=== PATIENT | male | born 1950 | race African-American/Black ===

== ENCOUNTER 2018-10-28 13:52 | Inpatient (IN) | payer MEDICARE, MEDICAID ==
[~2018-10-28] VITALS: Ht 165.1 cm; Wt 64.9 kg
--- NOTE | 2018-10-28 02:00 | NUR ---
NURSE NOTES: Spoke to Weston, patient's deck worker, regarding patient's home medication, social media editor provided me [facility]'s number [phone]. Attempted to contact pharmacy multiple times, however, no answer. Will retry at a later time.
--- NOTE | 2018-10-28 13:45 | NUR ---
NURSE NOTES: Patient ambulated from admitting to 3E without any incident. Patient is accompanied by personal manager social services. Patient is AOx4 and able to make needs known. Respiratory even and unlabored. Patient denies pain at this time. Spoke to Weston regarding patient's needs. Per manager social services, if in need of assistance in getting information, due to patient being poor historian, contact: Weston Augustin: [phone] and/or Manuelito Acosta: [phone] These personnels work for [facility].
[2018-10-28 14:00] VITALS: BP 120/80
--- NOTE | 2018-10-28 15:45 | NUR ---
NURSE NOTES: Contacted [facility] pharmacy regarding home medication, however, still no answer. Notified rn relief charge.
--- NOTE | 2018-10-28 15:50 | NUR ---
NURSE NOTES: Contacted [facility] regarding patient's chemotherapy status. Patient gets Keytruda [id number], per AJ Geronimo patient missed one session last week. Spoke with personnel in [facility] and clarified that the patient did miss session last week and also clarified home medications.
[2018-10-28 16:00] VITALS: BP 115/95
[2018-10-28] MEDS ORDERED: REMERON30 M1 ORAL (17:08)
[2018-10-28] MEDS ORDERED: WELLBUTRIN XL150 M1 ORAL (17:08)
[2018-10-28] MEDS ORDERED: KEYTRUDA100 MG/4 M IV (17:08)
[2018-10-28 18:23] LABS: BASOPHILS % (AUTO) 2.3 % (0.0-2.0); EOSINOPHILS % (AUTO) 6.6 % (0.0-3.0); HEMATOCRIT 37.7 % (42.0-52.0); HEMOGLOBIN 12.7 G/DL (14.2-18.0); LYMPHOCYTES % (AUTO) 24.9 % (20.0-45.0); MEAN CORPUSCULAR VOLUME 97 FL (80-99); MONOCYTES % (AUTO) 11.4 % (1.0-10.0); NEUTROPHILS % (AUTO) 54.8 % (45.0-75.0); PLATELET COUNT 164 K/UL (150-450); RED BLOOD COUNT 3.87 M/UL (4.70-6.10); RED CELL DISTRIBUTION WIDTH 10.5 % (11.6-14.8); WHITE BLOOD COUNT 4.6 K/UL (4.8-10.8)
[2018-10-28 18:30] LABS: ANION GAP 7 mmol/L (5-15); BLOOD UREA NITROGEN 15 mg/dL (7-18); CALCIUM 9.8 MG/DL (8.5-10.1); CARBON DIOXIDE 28 MMOL/L (21-32); CHLORIDE 104 MMOL/L (98-107); CREATININE 0.8 MG/DL (0.55-1.30); POTASSIUM 5.2 MMOL/L (3.5-5.1); SODIUM 139 MMOL/L (136-145)
[2018-10-28 18:33] LABS: INR 0.9 (0.9-1.1)
--- NOTE | 2018-10-28 19:00 | NUR ---
NURSE NOTES: painting and coating worker provided the following numbers: Yaya Araiza (brother) : [phone] Weston Augustin (rock worker [facility]) : [phone] (for any information regarding patient, due to patient being poor historian.) Manuelito Acosta (correctional case records supervisor of [facility]): [phone] [facility]: [phone] / [phone] Primary pharmacy: [facility]: [phone] Endorsed to upcoming shift.
--- NOTE | 2018-10-28 19:34 | NUR ---
HAND-OFF: Report given to Collette BARRERA. Patient is in stable condition. Endorsed plan of care.
--- NOTE | 2018-10-28 19:35 | NUR ---
NURSE NOTES: Received report & pt from HOLLY Arias. Pt lying in bed, a&ox4, in room air. No s/s of acute distress & no c/o pain at this time. Pt NPO @ midnight for tomorrow's procedure & pt aware. IV site intact with IVF running as ordered. Bed in lowest position, call light within reach. Will continue to monitor.
[2018-10-28 20:00] VITALS: BP 115/70
[2018-10-28] MEDS: D5NS 1,000 ML IV SCH (22:01)
[2018-10-28] MEDS ORDERED: Fleet's Enema 133ml RECTAL SCH (23:00)
[2018-10-29] VITALS (11 sets, daily range): BP systolic 90–149; BP diastolic 53–87
[2018-10-29] MEDS ORDERED: LR 1000ml 1,000 ML IVLG SCH (06:51)
--- NOTE | 2018-10-29 06:56 | Anethesia Preoperative Eval ---
Anesthesia Pre-op PMH/ROS General Date of Evaluation: Oct 29, 2018 Time of Evaluation: 07:41 Anesthesiologist: Sky ASA Score: ASA 3 Mallampati Score Class I : Soft palate, uvula, fauces, pillars visible Class II: Soft palate, uvula, fauces visible Class III: Soft palate, base of uvula visible Class IV: Only hard plate visible Mallampati Classification: Class II Surgeon: Gisella Diagnosis: Prostate CA Surgical Procedure: Open Prostatectomy Anesthesia History: none Family History: no anesthesia problems Allergies: Coded Allergies: No Known Allergies (Unverified , 10/28/18) Medications: see eMAR Patient NPO?: Yes NPO Date: Oct 29, 2018 NPO Time: 0000 Past Medical History Cardiovascular: Reports: HTN Gastrointestinal/Genitourinary: Reports: other - BPH Neurologic/Psychiatric: Reports: depression/anxiety - Major Depressive Disorder Hematology/Immune: Reports: anemia, other - Colon, Lung, Prostate CA Anesthesia Pre-op Phys. Exam Physician Exam Last Vital Signs Date Time Temp Pulse Resp B/P (MAP) Pulse Ox O2 Delivery O2 Flow Rate FiO2 10/29/18 04:00 97.6 90 20 119/67 (84) 98 10/28/18 20:54 Room Air Constitutional: NAD Neurologic: CN 2-12 intact Cardiovascular: RRR Respiratory: CTA Gastrointestinal: S/NT/ND Airway Exam Mallampati Score: Class II MO: full ROM: limited Teeth: missing, intact Anesthesia Pre-op A/P Labs Hematology Test 10/28/18 18:00 White Blood Count 4.6 K/UL (4.8-10.8) L Red Blood Count 3.87 M/UL (4.70-6.10) L Hemoglobin 12.7 G/DL (14.2-18.0) L Hematocrit 37.7 % (42.0-52.0) L Mean Corpuscular Volume 97 FL (80-99) Mean Corpuscular Hemoglobin 32.8 PG (27.0-31.0) H Mean Corpuscular Hemoglobin Concent 33.7 G/DL (32.0-36.0) Red Cell Distribution Width 10.5 % (11.6-14.8) L Platelet Count 164 K/UL (150-450) Mean Platelet Volume 8.6 FL (6.5-10.1) Neutrophils (%) (Auto) 54.8 % (45.0-75.0) Lymphocytes (%) (Auto) 24.9 % (20.0-45.0) Monocytes (%) (Auto) 11.4 % (1.0-10.0) H Eosinophils (%) (Auto) 6.6 % (0.0-3.0) H Basophils (%) (Auto) 2.3 % (0.0-2.0) H Coagulation Test 10/28/18 18:00 Prothrombin Time 9.8 SEC (9.30-11.50) Prothromb Time International Ratio 0.9 (0.9-1.1) Activated Partial Thromboplast Time 27 SEC (23-33) Chemistry Test 10/28/18 18:00 Sodium Level 139 MMOL/L (136-145) Potassium Level 5.2 MMOL/L (3.5-5.1) H Chloride Level 104 MMOL/L (98-107) Carbon Dioxide Level 28 MMOL/L (21-32) Anion Gap 7 mmol/L (5-15) Blood Urea Nitrogen 15 mg/dL (7-18) Creatinine 0.8 MG/DL (0.55-1.30) Estimat Glomerular Filtration Rate > 60 mL/min (>60) Glucose Level 90 MG/DL (74-106) Calcium Level 9.8 MG/DL (8.5-10.1) Risk Assessment & Plan Assessment: ASA 3 Plan: GA, SED, GlideScope Go Status Change Before Surgery: No Pre-Antibiotics Dru Gram Ancef IV Given Within 1 Hr of Incision: Yes Time Given: 08:01 Spencer Hartman MD Oct 29, 2018 06:55
[2018-10-29] MEDS ORDERED: Sterile Water Irrig 1000ml IRRIG ONE (07:00)
[2018-10-29] MEDS ORDERED: HYDROcodone/Acetamin 7.5/325 tab ORAL PRN (07:00)
[2018-10-29] MEDS ORDERED: DiphenhydrAMINE 50mg/ml Inj IVP PRN (07:00)
[2018-10-29] MEDS ORDERED: Neostigmine 1mg/ml 10ml Inj ONE (07:00)
[2018-10-29] MEDS ORDERED: NS Irrig 1000ml ONE (07:00)
[2018-10-29] MEDS ORDERED: LR 1000ml ONE (07:00)
[2018-10-29] MEDS ORDERED: Atropine Sulfate 0.4mg/ml inj IVP PRN (07:00)
[2018-10-29] MEDS ORDERED: Midazolam 2mg/2ml Inj IVP PRN (07:00)
[2018-10-29] MEDS ORDERED: Meperidine 50mg/ml Inj(FOR RIGORS ONLY) IVP PRN (07:00)
[2018-10-29] MEDS ORDERED: HYDROcodone/Acetamin 5/325 tab ORAL PRN (07:00)
[2018-10-29] MEDS ORDERED: LORazepam Inj 2mg/ml 1ml IV PRN (07:00)
[2018-10-29] MEDS ORDERED: Acetaminophen (Non formulary) 100 ML IV ONE (07:00)
[2018-10-29] MEDS ORDERED: fentaNYL 100 mcg/2 mL IV PRN (07:00)
[2018-10-29] MEDS ORDERED: Labetalol 5mg/ml 20ml vial IV PRN (07:00)
[2018-10-29] MEDS ORDERED: Hydromorphone 0.5mg/0.5ml inj IVP PRN (07:00)
[2018-10-29] MEDS ORDERED: Glycopyrrolate 0.2mg/ml 1ml Vial ONE (07:00)
[2018-10-29] MEDS ORDERED: Ketorolac 30mg Inj IV PRN ×2 (07:00)
[2018-10-29] MEDS ORDERED: oxyCODONE HCL/Acetaminophen 5/325mg ORAL PRN (07:00)
[2018-10-29] MEDS ORDERED: Rocuronium Bromide 50mg/5ml Inj IV ONE (07:01)
--- NOTE | 2018-10-29 07:03 | NUR ---
NURSE NOTES: Called & left msg to Dr. Peralta's emergency hotline regarding H&P; Pt will have surgery @ 6527. H&P needed. Will endorse to AM shift.
--- NOTE | 2018-10-29 07:08 | NUR ---
NURSE NOTES: Pt picked up by transporter. ID band verified. Rechecked underwear, jewelry, & dentures and placed everything at bedside. Pt in stable condition.
[2018-10-29] MEDS ORDERED: ProvayBlue 5mg/ml 10ml amp INJ ONE (07:15)
[2018-10-29] MEDS ORDERED: Dexamethasone 4mg/ml vial ONE (07:16)
[2018-10-29] MEDS ORDERED: Lidocaine 1% MPF 10mg/ml 5ml ONE (07:16)
[2018-10-29] MEDS ORDERED: Sodium Chloride 10ml vial INJ ONE (07:16)
[2018-10-29] MEDS ORDERED: Propofol 200mg/20ml IV ONE (07:16)
[2018-10-29] MEDS ORDERED: fentaNYL 100 mcg/2 mL IV ONE ×2 (07:21→11:44)
--- NOTE | 2018-10-29 07:28 | NUR ---
HAND-OFF: Report given to HOLLY Bardales. Pt in stable condition. Pt went down for surgery
[2018-10-29] MEDS ORDERED: NS Irrig 4000ml IRRIG ONE (07:36)
--- NOTE | 2018-10-29 07:50 | NUR ---
NURSE NOTES: Patient is off unit.
--- NOTE | 2018-10-29 07:52 | Pre-Procedure Note/Attestation ---
Pre-Procedure Note/Attestation Complete Prior to Procedure Planned Procedure: not applicable Procedure Narrative: Open radical prostatectomy Indications for Procedure Pre-Operative Diagnosis: prostate cancer Attestation I attest that I discussed the nature of the procedure; its benefits; risks and complications; and alternatives (and the risks and benefits of such alternatives ), prior to the procedure, with the patient (or the patient's legal sales representative malt liquors). I attest that, if there was a reasonable possibility of needing a blood transfusion, the patient (or the patient's legal sales representative malt liquors) was given the [facility] standardized written summary, pursuant to the Manuel Lorie Blood Safety Act ([place] Health and Safety Code # 1645, as amended). I attest that I re-evaluated the patient just prior to the surgery and that there has been no change in the patient's H&P, except as documented below: Mickey Obando MD Oct 29, 2018 07:52
[2018-10-29] MEDS: D5NS 1,000 ML IV SCH (08:00)
[2018-10-29] MEDS ORDERED: NS Irrig 1000ml IRRIG ONE ×2 (08:17→09:08)
--- NOTE | 2018-10-29 08:35 | Consultation ---
Consult Note Consult Note HISTORY AND PHYSICAL DICTATED Mt Peralta MD Oct 29, 2018 08:35
[2018-10-29] MEDS: BuPROPion XL 150mg tab ORAL SCH (09:00)
[2018-10-29] MEDS ORDERED: cefOXitin 2gm Inj ONE (09:44)
[2018-10-29] MEDS ORDERED: NeoSporin Gu Irrig 1ml Amp IRRIG ONE (09:50)
[2018-10-29] MEDS ORDERED: Bacitracin 50000 Units Vial ONE (09:50)
--- NOTE | 2018-10-29 10:21 | Diagnostic Imaging Report ---
Indication: Chest pain, preop Technique: XRAY Chest 1v Comparison: None Findings: Right size within normal limits for AP technique. The aorta appears ectatic and slightly tortuous. Mediastinal contours are sharp. There is some scarring in the right upper lung. Some associated streaky opacity this region but favored to be related to scarring. Possibility of developing airspace disease needs to be excluded clinically. No additional focal consolidation identified. No pleural effusion, pneumothorax. There is mild eventration right hemidiaphragm. No acute osseous abnormality. IMPRESSION: Linear scarring in the right upper lobe. Some subtle streaky opacities in this region are favored to be related to scarring although developing airspace disease/pneumonia not excludable. Clinical correlation and follow-up recommended.
--- NOTE | 2018-10-29 11:15 | Pre-op HX & Phy Repo 2 SIG ---
DATE OF ADMISSION: 10/28/2018 This is a preop history and physical in anticipation of prostatic surgery. HISTORY OF PRESENT ILLNESS: This is a 68-year-old male with a complicated past history of colon CA on chemotherapy. He also has a prostate CA, is admitted for prostatic surgery. The patient is unable to provide any clear history as he had a history of significant psychiatric condition. Most of the history obtained from discussion with the responsible constitution party. PAST MEDICAL HISTORY: The patient has a past history notable for psych disorder, colon carcinoma, and prostate CA. MEDICATIONS: List of home medications include Wellbutrin and Remeron. ALLERGIES: None reported. PREVIOUS SURGERIES: The patient is unclear about details. REVIEW OF SYSTEMS: Denies any headaches, hematemesis, melena, hematochezia, night sweats, or weight loss. PHYSICAL EXAMINATION: GENERAL: Reveals a 68-year-old male. HEENT: Unremarkable. VITAL SIGNS: Blood pressure 124/70, heart rate 94, respiratory rate 18, he is afebrile. CHEST: Clear breath sounds bilaterally with normal heart sounds. ABDOMEN: Soft. EXTREMITIES: There is no edema. LABORATORY DATA: Lab testing shows hemoglobin 12.7, white count 4.6. Chemistries are normal. Potassium of 5.2. Coags are negative. IMPRESSION: This is a 68-year-old male with underlyin. Psychiatric disorder. 2. History of colon CA. 3. Prostate CA. DISCUSSION: The patient is clear for surgery. I have ordered an EKG and x-ray on him for this morning. His laboratories have been unremarkable except for borderline high potassium of 5.2. We will follow his personnel director. Mt Peralta M.D. DR: SIDRA JOB#: [id number] CC:
--- NOTE | 2018-10-29 11:16 | Immediate Post-Op Evaluation ---
Immediate Post-Op Evalulation Immediate Post-Op Evalulation Procedure: Open Prostatectomy Date of Evaluation: Oct 29, 2018 Time of Evaluation: 12:18 IV Fluids: 1800 LR Blood Products: 1000 ALB Estimated Blood Loss: 400 Urinary Output: 200 Blood Pressure Systolic: 101 Blood Pressure Diastolic: 63 Pulse Rate: 83 Respiratory Rate: 16 O2 Sat by Pulse Oximetry: 100 Temperature (Fahrenheit): 97.1 Pain Score (1-10): 2 Nausea: No Vomiting: No Complications 0 Patient Status: awake, reacts, patent, extubated, none Hydration Status: adequate Dru Gram Ancef IV Given Within 1 Hr of Incision: Yes Time Given: 08:01 Spencer Hartman MD Oct 29, 2018 11:16
--- NOTE | 2018-10-29 11:59 | Brief Operative Note ---
Immediate Post Operative Note Operative Note Pre-op Diagnosis: prostate cancer Procedure: radical retropubic prostatectomy with right ureteral reimplant and bladder reconstruction Post-op Diagnosis: prostete cancer with right ureteral obstruction Post-op Diagnosis: same as pre-op plus Surgeon: eliceo obando Bread And Pastry Baker: álvaro reyes Anesthesia: general Specimen: yes Complications: none Condition: stable Fluids: 1000 Estimated Blood Loss: volume - 400 Drains: LIDIA Implant(s) used?: No Mickey Obando MD Oct 29, 2018 11:59
[2018-10-29] MEDS ORDERED: HYDROmorphone 1mg/ml Carpuject IVP PRN (12:00)
[2018-10-29 12:40] LABS: HEMATOCRIT 25.1 % (42.0-52.0); HEMOGLOBIN 8.5 G/DL (14.2-18.0); MEAN CORPUSCULAR VOLUME 96 FL (80-99); PLATELET COUNT 142 K/UL (150-450); RED BLOOD COUNT 2.61 M/UL (4.70-6.10); RED CELL DISTRIBUTION WIDTH 10.8 % (11.6-14.8); WHITE BLOOD COUNT 11.8 K/UL (4.8-10.8)
[2018-10-29 12:47] LABS: ANION GAP 9 mmol/L (5-15); BLOOD UREA NITROGEN 14 mg/dL (7-18); CALCIUM 8.1 MG/DL (8.5-10.1); CARBON DIOXIDE 24 MMOL/L (21-32); CHLORIDE 108 MMOL/L (98-107); CREATININE 1.2 MG/DL (0.55-1.30); POTASSIUM 4.1 MMOL/L (3.5-5.1); SODIUM 141 MMOL/L (136-145)
--- NOTE | 2018-10-29 13:25 | NUR ---
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 98.0 HR 82 RR 20 B/P 120/80 WBC 4.6 K 5.2 CXR= NO PLEURAL EFFUSION IS: IVF D5KCL@100ML/HR CEFOXITIN IV TYLENOL IV ADMITTED TO MED/SURG MED/SURG STATUS DCP RETURN HOME
--- NOTE | 2018-10-29 13:45 | NUR ---
NURSE NOTES: Patient arrived from PACU. Stable. Asleep. Breathing is even and unlabored. VSS. Surgical dressing bloody. LIDIA draining sanguinous output. Will monitor output as ordered. Mesa in place. Patient's family is at bedside. Encouraged to use call light for assistance. Patient is in bed in locked and lowest position with call light within reach. Will continue to monitor.
--- NOTE | 2018-10-29 14:26 | Consultation ---
History of Present Illness General Date patient seen: Oct 29, 2018 Present Illness HPI This is a 68-year-old male with an unfortunate history of cancer recently underwent prostate/urological cancer surgery identified to have a large mass requiring reimplantation of the ureter and complicated operative procedure please refer to Dr. Mickey Obando's note for details. Intraoperatively there was a rectal injury which was repaired in a 2 layer fashion. Given these findings, complicated course of surgery, patient's comorbidities medical history and overall condition surgery was called to evaluate and assist with care. Allergies: Coded Allergies: No Known Allergies (Unverified , 10/28/18) Medication History Scheduled Bupropion HCl (Wellbutrin Xl), 300 MG ORAL DAILY, (Reported) Mirtazapine (Remeron), 30 MG ORAL BEDTIME, (Reported) Miscellaneous Medications Pembrolizumab (Keytruda), 100 MG IV, (Reported) Patient History History Provided By: Patient, Medical Record, PMD Healthcare decision maker Resuscitation status Full Code Advanced Directive on File Past Medical/Surgical History Past Medical/Surgical History: (1) Abdominal pain (2) Prostate CA Review of Systems Review of Symptoms General ROS: no weight loss or fever Psychological ROS: no depression or mood changes, no memory loss Ophthalmic ROS: no visual changes or eye irritation ENT ROS: no nasal congestion, hearing loss, dizziness Allergy and Immunology ROS: no allergic symptoms or urticaria Hematological and Lymphatic ROS: no swollen glands, unusual bleeding or bruising Endocrine ROS: no polyuria, polydipsia, weight changes, temperature intolerance Respiratory ROS: no cough, shortness of breath, or wheezing Cardiovascular ROS: no chest pain or dyspnea on exertion Gastrointestinal ROS: abdominal pain, no bright red blood in stool. Musculoskeletal ROS: no myalgias or arthralgias Neurological ROS: no TIA or stroke symptoms Dermatological ROS: no new or changing skin lesions, rashes or pruritis Physical Exam Physical Exam General appearance: alert, cooperative, no distress, appears stated age Head: Normocephalic, without obvious abnormality, atraumatic Eyes: conjunctivae/corneas clear. PERRL, EOM's intact. Fundi benign Throat: Lips, mucosa, and tongue normal. Teeth and gums normal Neck: supple, symmetrical, trachea midline, no adenopathy, thyroid: not enlarged, symmetric, no tenderness/mass/nodules, no carotid bruit and no JVD Lungs: clear to auscultation bilaterally Heart: regular rate and rhythm, S1, S2 normal, no murmur, click, rub or gallop Abdomen: soft, incision drainage and tender. Bowel sounds normal. No masses, no organomegaly drain serosang Extremities: extremities normal, atraumatic, no cyanosis or edema Pulses: 2+ and symmetric Skin: Skin color, texture, turgor normal. No rashes or lesions Neurologic: Grossly normal Last 24 Hour Vital Signs Date Time Temp Pulse Resp B/P (MAP) Pulse Ox O2 Delivery O2 Flow Rate FiO2 10/29/18 13:08 97.5 62 20 109/66 99 Nasal Cannula 3 10/29/18 13:00 63 14 113/64 98 Nasal Cannula 3 10/29/18 12:45 61 15 101/53 100 Nasal Cannula 3 10/29/18 12:30 60 20 99/57 100 Simple Mask 6 10/29/18 12:20 63 17 100/56 100 Simple Mask 6 10/29/18 12:10 59 20 90/58 100 Simple Mask 6 10/29/18 12:04 83 16 100 10/29/18 12:00 97.1 83 16 101/63 100 Simple Mask 6 10/29/18 04:00 97.6 90 20 119/67 (84) 98 10/29/18 00:00 97.8 98 17 124/73 (90) 97 10/28/18 20:54 Room Air 10/28/18 20:00 97.3 95 19 115/70 (85) 98 10/28/18 16:26 Room Air 10/28/18 16:00 98.5 82 20 115/95 (102) 98 Intake and Output 10/28/18 10/29/18 19:00 07:00 Intake Total 1140 ml Output Total 400 ml Balance 740 ml Intake Oral 240 ml IV Total 900 ml Output Urine Total 400 ml # Voids 4 Laboratory Tests Test 10/28/18 18:00 10/29/18 12:20 White Blood Count 4.6 K/UL (4.8-10.8) L 11.8 K/UL (4.8-10.8) #H Red Blood Count 3.87 M/UL (4.70-6.10) L 2.61 M/UL (4.70-6.10) L Hemoglobin 12.7 G/DL (14.2-18.0) L 8.5 G/DL (14.2-18.0) #L Hematocrit 37.7 % (42.0-52.0) L 25.1 % (42.0-52.0) #L Mean Corpuscular Volume 97 FL (80-99) 96 FL (80-99) Mean Corpuscular Hemoglobin 32.8 PG (27.0-31.0) H 32.6 PG (27.0-31.0) H Mean Corpuscular Hemoglobin Concent 33.7 G/DL (32.0-36.0) 34.0 G/DL (32.0-36.0) Red Cell Distribution Width 10.5 % (11.6-14.8) L 10.8 % (11.6-14.8) L Platelet Count 164 K/UL (150-450) 142 K/UL (150-450) L Mean Platelet Volume 8.6 FL (6.5-10.1) 10.6 FL (6.5-10.1) H Neutrophils (%) (Auto) 54.8 % (45.0-75.0) % (45.0-75.0) Lymphocytes (%) (Auto) 24.9 % (20.0-45.0) % (20.0-45.0) Monocytes (%) (Auto) 11.4 % (1.0-10.0) H % (1.0-10.0) Eosinophils (%) (Auto) 6.6 % (0.0-3.0) H % (0.0-3.0) Basophils (%) (Auto) 2.3 % (0.0-2.0) H % (0.0-2.0) Prothrombin Time 9.8 SEC (9.30-11.50) Prothromb Time International Ratio 0.9 (0.9-1.1) Activated Partial Thromboplast Time 27 SEC (23-33) Sodium Level 139 MMOL/L (136-145) 141 MMOL/L (136-145) Potassium Level 5.2 MMOL/L (3.5-5.1) H 4.1 MMOL/L (3.5-5.1) Chloride Level 104 MMOL/L (98-107) 108 MMOL/L (98-107) H Carbon Dioxide Level 28 MMOL/L (21-32) 24 MMOL/L (21-32) Anion Gap 7 mmol/L (5-15) 9 mmol/L (5-15) Blood Urea Nitrogen 15 mg/dL (7-18) 14 mg/dL (7-18) Creatinine 0.8 MG/DL (0.55-1.30) 1.2 MG/DL (0.55-1.30) Estimat Glomerular Filtration Rate > 60 mL/min (>60) > 60 mL/min (>60) Glucose Level 90 MG/DL (74-106) 187 MG/DL (74-106) H Calcium Level 9.8 MG/DL (8.5-10.1) 8.1 MG/DL (8.5-10.1) L Differential Total Cells Counted 100 Neutrophils % (Manual) 95 % (45-75) H Lymphocytes % (Manual) 4 % (20-45) L Monocytes % (Manual) 1 % (1-10) Eosinophils % (Manual) 0 % (0-3) Basophils % (Manual) 0 % (0-2) Band Neutrophils 0 % (0-8) Platelet Estimate Decreased L Platelet Morphology Normal Height (Feet): 5 Height (Inches): 5.00 Weight (Pounds): 142 Medications Current Medications Medications (Trade) Dose Ordered Sig/Juliano Route PRN Reason Start Time Stop Time Status Last Admin Dose Admin Acetaminophen (Tylenol) 650 mg Q4H PRN ORAL FEVER 10/29/18 12:00 11/28/18 11:59 UNV Acetaminophen/ Hydrocodone Bitart ([place] 5/325) 1 tab Q1H PRN ORAL Mild Pain (Pain Scale 1-3) 10/29/18 07:00 10/29/18 15:00 Acetaminophen/ Hydrocodone Bitart ([place] 7.5/325) 1 tab Q1H PRN ORAL Moderate Pain (Pain Scale 4-6) 10/29/18 07:00 10/29/18 15:00 Al Hydroxide/Mg Hydroxide (Mylanta) 15 ml Q1H PRN ORAL gi upset 10/29/18 07:00 10/29/18 15:00 Atropine Sulfate (Atropine 0.4mg/ ml) 0.5 mg Q5M PRN IVP HR<40 10/29/18 07:00 10/29/18 15:00 Bupropion HCl (Wellbutrin XL) 300 mg DAILY ORAL 10/29/18 09:00 11/28/18 08:59 Cefoxitin Sodium 2 gm/Dextrose 110 ml @ 220 mls/hr EVERY 6 HOURS IV 10/29/18 12:00 10/30/18 00:29 UNV Dextrose/ Electrolytes 1,000 ml @ 100 mls/hr Q10H IV 10/29/18 11:59 11/28/18 11:58 UNV Dextrose/Sodium Chloride 1,000 ml @ 100 mls/hr Q10H IV 10/28/18 22:00 11/27/18 21:59 10/28/18 22:01 Diphenhydramine HCl (Benadryl) 25 mg Q15M PRN IVP Itching 10/29/18 07:00 10/29/18 15:00 Fentanyl Citrate (Sublimaze 100 mcg/2 mL) 25 mcg Q10M PRN IV Moderate Pain (Pain Scale 4-6) 10/29/18 07:00 10/29/18 15:00 Hydralazine HCl (Apresoline) 5 mg Q30M PRN IV SBP>160 / DBP>90 10/29/18 07:00 10/29/18 15:00 Hydromorphone HCl (Dilaudid) 0.5 mg Q15M PRN IVP Severe Pain (Pain Scale 7-10) 10/29/18 07:00 10/29/18 15:00 Hydromorphone HCl (Dilaudid) 1 mg Q3H PRN IVP pain score 4-6 10/29/18 12:00 11/05/18 11:59 Ketorolac Tromethamine (Toradol 30mg) 15 mg Q1H PRN IV Moderate Breakthru Pain (5-7) 10/29/18 07:00 10/29/18 15:00 Ketorolac Tromethamine (Toradol 30mg) 15 mg Q6H PRN IV For Pain 10/29/18 12:00 11/03/18 11:59 UNV Ketorolac Tromethamine (Toradol 30mg) 30 mg Q1H PRN IV Severe Breakthru Pain (>7) 10/29/18 07:00 10/29/18 15:00 Labetalol HCl (Normodyne) 5 mg Q10M PRN IV SBP>160 / DBP>90 10/29/18 07:00 10/29/18 15:00 Lactated Ringer's 1,000 ml @ 10 mls/hr Q24H IVLG 10/29/18 06:51 10/29/18 15:00 Lorazepam (Ativan 2mg/ml 1ml) 1 mg Q15M PRN IV For Anxiety 10/29/18 07:00 10/29/18 15:00 Meperidine HCl (Demerol) 25 mg Q5M PRN IVP Shivering.May repeat x 1 10/29/18 07:00 10/29/18 15:00 Midazolam HCl (Versed 2mg/2ml vial) 1 mg Q15M PRN IVP For Anxiety 10/29/18 07:00 10/29/18 15:00 Mirtazapine (Remeron) 30 mg QHS ORAL 10/28/18 21:00 11/27/18 20:59 10/28/18 21:56 Ondansetron HCl (Zofran) 4 mg Q1H PRN IVP Nausea & Vomiting 10/29/18 07:00 10/29/18 15:00 Ondansetron HCl (Zofran) 4 mg Q6H PRN IVP Nausea & Vomiting 10/29/18 12:00 11/28/18 11:59 UNV Oxycodone/ Acetaminophen (Percocet 5-325) 1 tab Q1H PRN ORAL Severe Pain (Pain Scale 7-10) 10/29/18 07:00 10/29/18 15:00 Temazepam (Restoril) 7.5 mg DAILYPRN PRN ORAL Insomnia 10/29/18 12:00 11/05/18 11:59 UNV Assessment/Plan Problem List: (1) Abdominal pain Assessment & Plan: 68M s/p recovering abd pain labs noted exam as above -will need bilateral nephrostomy tubes to control drainage as drain with high output -will monitor abd exam -npo -iv fluids -dressings -will follow with exam an drecs thank you for allowing me to participate in patients care. ICD Codes: R10.9 - Unspecified abdominal pain SNOMED: [id number] (2) Prostate CA ICD Codes: C61 - Malignant neoplasm of prostate SNOMED: [id number] Giacomo Berrios Oct 29, 2018 14:26
--- NOTE | 2018-10-29 15:16 | NUR ---
Social Service Note Patient's mental health provider from [facility] Weston Augustin provided nursing station a letter written by Dr. Julio Bunn patient's psychiatrist requesting patient be placed in a SNF upon discharge. Patient's FSP team indicated patient doesn't have any support at home that would allow him to properly follow a medication and post operative regimen. KATELYN faxed letter to Dr. Obando's office and will notify JULIETA.
[2018-10-29] MEDS ORDERED: D5NS 1000ml IV ONE (15:55)
[2018-10-29] MEDS: D5 1/2NS w/KCl 20mEq 1,000 ML IV SCH (16:28)
[2018-10-29] MEDS: cefOXitin Sod 2 GM in D5W 110 ML IV SCH ×2 (16:29→22:14)
--- NOTE | 2018-10-29 17:00 | NUR ---
NURSE NOTES: No UO in duong drainage bag. Dr. Obando aware. Will continue to monitor I&O of LIDIA.
[2018-10-29] MEDS: HYDROmorphone 1mg/ml Carpuject IVP PRN (17:56)
--- NOTE | 2018-10-29 19:53 | NUR ---
HAND-OFF: Report given to Collette BARRERA. Patient is stable.
--- NOTE | 2018-10-29 19:54 | NUR ---
NURSE NOTES: Received report & pt from HOLLY Bardales. Pt lying in bed, a&ox4, on O2 via NC @ 2LPM. No s/s of acute distress & c/o 11/20 pain at this time. Will give pain med when due. Pt still NPO. Mesa intact with no UO & per report, aware. LIDIA to bulb suction; Per AM shift, have to empty LIDIA frequently. Surgical dressing stained & per AM report, Dr. Obando is aware. IV site intact with IVF running as ordered. Bed in lowest position, call light within reach. Will continue to monitor.
[2018-10-29] MEDS: Ketorolac 30mg Inj IV PRN (21:12)
[2018-10-30] VITALS (24 sets, daily range): BP systolic 95–148; BP diastolic 62–95
[2018-10-30] MEDS: D5 1/2NS w/KCl 20mEq 1,000 ML IV SCH (02:06)
[2018-10-30] MEDS: cefOXitin Sod 2 GM in D5W 110 ML IV SCH (04:22)
[2018-10-30] MEDS: Ketorolac 30mg Inj IV PRN (06:09)
[2018-10-30 06:15] LABS: BASOPHILS % (AUTO) 0.5 % (0.0-2.0); EOSINOPHILS % (AUTO) 0.1 % (0.0-3.0); HEMATOCRIT 30.5 % (42.0-52.0); HEMOGLOBIN 10.2 G/DL (14.2-18.0); LYMPHOCYTES % (AUTO) 8.4 % (20.0-45.0); MEAN CORPUSCULAR VOLUME 96 FL (80-99); NEUTROPHILS % (AUTO) 83.1 % (45.0-75.0); PLATELET COUNT 155 K/UL (150-450); RED BLOOD COUNT 3.17 M/UL (4.70-6.10); RED CELL DISTRIBUTION WIDTH 10.7 % (11.6-14.8); WHITE BLOOD COUNT 10.9 K/UL (4.8-10.8)
[2018-10-30 06:51] LABS: ANION GAP 8 mmol/L (5-15); BLOOD UREA NITROGEN 18 mg/dL (7-18); CALCIUM 8.7 MG/DL (8.5-10.1); CARBON DIOXIDE 25 MMOL/L (21-32); CHLORIDE 106 MMOL/L (98-107); CREATININE 2.4 MG/DL (0.55-1.30); POTASSIUM 5.6 MMOL/L (3.5-5.1); SODIUM 139 MMOL/L (136-145)
--- NOTE | 2018-10-30 07:29 | NUR ---
HAND-OFF: Report given to HOLLY Bardales. Rounds done. Pt in stable condition. Called Dr. Peralta regarding labs potassium 5.4 & creatinine 2.4 & per MD, "Okay, that's fine". No new orders were given. Endorsed to Catia.
--- NOTE | 2018-10-30 07:30 | NUR ---
NURSE NOTES: Patient is in bed asleep. Stable. No visible signs of distress noted. Breathing is even and unlabored. Patient is in bed in locked and lowest position with call light within reach. Will continue to monitor.
--- NOTE | 2018-10-30 08:02 | Pulmonology Progress Note ---
Assessment/Plan Assessment/Plan IMPRESSION: This is a 68-year-old male with underlyin. Psychiatric disorder. 2. History of colon CA. 3. Prostate CA. 4. S/p prostatectomy, open, with resection of rectum and repositioning of bladder/ureter DISCUSSION: Will consult nephrology He will likely benefit from bilateral perc nephrostomies Will follow Discussed with urology Subjective Interval Events: S/p surgery yesterday; worse creatinine today Constitutional: Reports: no symptoms HEENT: Repors: no symptoms Respiratory: Reports: no symptoms Cardiovascular: Reports: no symptoms Allergies: Coded Allergies: No Known Allergies (Unverified , 10/28/18) Objective Last 24 Hour Vital Signs Date Time Temp Pulse Resp B/P (MAP) Pulse Ox O2 Delivery O2 Flow Rate FiO2 10/30/18 04:00 98.7 95 16 129/76 (93) 98 10/30/18 00:00 98.5 95 16 137/78 (97) 98 10/29/18 21:00 Nasal Cannula 2.0 10/29/18 20:00 98.5 93 18 149/87 (107) 98 10/29/18 16:00 98.3 65 22 116/63 (80) 100 10/29/18 14:00 Room Air 10/29/18 13:08 97.5 62 20 109/66 99 Nasal Cannula 3 10/29/18 13:00 63 14 113/64 98 Nasal Cannula 3 10/29/18 12:45 61 15 101/53 100 Nasal Cannula 3 10/29/18 12:30 60 20 99/57 100 Simple Mask 6 10/29/18 12:20 63 17 100/56 100 Simple Mask 6 10/29/18 12:10 59 20 90/58 100 Simple Mask 6 10/29/18 12:04 83 16 100 10/29/18 12:00 97.1 83 16 101/63 100 Simple Mask 6 Intake and Output 10/29/18 10/30/18 19:00 07:00 Intake Total 120 ml 1200 ml Output Total 200 ml 430 ml Balance -80 ml 770 ml IV Total 120 ml 1200 ml Output Urine Total 0 ml 0 ml Drainage Total 200 ml 430 ml General Appearance: no acute distress HEENT: normocephalic Respiratory/Chest: chest wall non-tender, lungs clear Cardiovascular: normal peripheral pulses Abdomen: soft, non tender Laboratory Tests 10/29/18 12:20: White Blood Count 11.8#H, Red Blood Count 2.61L, Hemoglobin 8.5#L, Hematocrit 25.1#L, Mean Corpuscular Volume 96, Mean Corpuscular Hemoglobin 32.6H, Mean Corpuscular Hemoglobin Concent 34.0, Red Cell Distribution Width 10.8L, Platelet Count 142L, Mean Platelet Volume 10.6H, Neutrophils (%) (Auto) , Lymphocytes (%) (Auto) , Monocytes (%) (Auto) , Eosinophils (%) (Auto) , Basophils (%) (Auto) , Differential Total Cells Counted 100, Neutrophils % ( Manual) 95H, Lymphocytes % (Manual) 4L, Monocytes % (Manual) 1, Eosinophils % ( Manual) 0, Basophils % (Manual) 0, Band Neutrophils 0, Platelet Estimate DecreasedL, Platelet Morphology Normal, Sodium Level 141, Potassium Level 4.1, Chloride Level 108H, Carbon Dioxide Level 24, Anion Gap 9, Blood Urea Nitrogen 14, Creatinine 1.2, Estimat Glomerular Filtration Rate > 60, Glucose Level 187H , Calcium Level 8.1L 10/30/18 05:00: White Blood Count 10.9H, Red Blood Count 3.17L, Hemoglobin 10.2L, Hematocrit 30.5L, Mean Corpuscular Volume 96, Mean Corpuscular Hemoglobin 32.3H, Mean Corpuscular Hemoglobin Concent 33.5, Red Cell Distribution Width 10.7L, Platelet Count 155, Mean Platelet Volume 9.4, Neutrophils (%) (Auto) 83.1H, Lymphocytes (%) (Auto) 8.4L, Monocytes (%) (Auto) 8.0, Eosinophils (%) (Auto) 0.1, Basophils (%) (Auto) 0.5, Sodium Level 139, Potassium Level 5.6H, Chloride Level 106, Carbon Dioxide Level 25, Anion Gap 8, Blood Urea Nitrogen 18, Creatinine 2.4#H, Estimat Glomerular Filtration Rate 33.0, Glucose Level 146H, Calcium Level 8.7 Current Medications Medications (Trade) Dose Ordered Sig/Juliano Route PRN Reason Start Time Stop Time Status Last Admin Dose Admin Acetaminophen (Tylenol) 650 mg Q4H PRN ORAL T>100.5 10/29/18 15:15 11/28/18 15:14 Bupropion HCl (Wellbutrin XL) 300 mg DAILY ORAL 10/29/18 09:00 11/28/18 08:59 Dextrose/ Electrolytes 1,000 ml @ 100 mls/hr Q10H IV 10/29/18 16:00 11/28/18 15:59 10/30/18 02:06 Hydromorphone HCl (Dilaudid) 1 mg Q3H PRN IVP Severe Pain (Pain Scale 7-10) 10/29/18 15:15 11/05/18 11:59 10/29/18 17:56 Ketorolac Tromethamine (Toradol 30mg) 15 mg Q6H PRN IV Moderate Pain (Pain Scale 4-6) 10/29/18 12:00 11/03/18 11:59 10/30/18 06:09 Mirtazapine (Remeron) 30 mg QHS ORAL 10/28/18 21:00 11/27/18 20:59 10/29/18 20:17 Ondansetron HCl (Zofran) 4 mg Q6H PRN IVP Nausea & Vomiting 10/29/18 15:30 11/28/18 15:29 Temazepam (Restoril) 7.5 mg HSPRN PRN ORAL Insomnia 10/29/18 21:00 11/05/18 20:59 Mt Peralta MD Oct 30, 2018 08:02
[2018-10-30] MEDS: BuPROPion XL 150mg tab ORAL SCH (08:46)
[2018-10-30] MEDS: D5 1/2NS 1,000 ML IV SCH ×2 (08:46→20:53)
--- NOTE | 2018-10-30 09:00 | NUR ---
NURSE NOTES: Dr Obando spoke to patient about nephrostomy placement and explained procedure to patient, patient verbalized understanding. Patient is AOx4 and claims that he lives at home alone and makes his own medical decisions. Will have patient sign consent for procedure.
[2018-10-30] MEDS ORDERED: Isovue-300 100ml vial INJ PRN (09:45)
[2018-10-30] MEDS ORDERED: Lidocaine 1% Plain 30 ml INJ PRN ×3 (09:45→17:05)
--- NOTE | 2018-10-30 10:10 | NUR ---
PT EVALUATION NOTE Patient seen for initial evaluation, see complete evaluation for details. Patient presents with impaired functional mobility due to generalized weakness and pain s/p procedure. Patient requires min assist for transfers and ambulation, ambulation distance/endurance limited to 20 ft due to pain. Patient will benefit from skilled inpatient PT intervention to address strength, balance, safety and functional mobility. Recommend discharge to SNF short term for rehab as patient lives alone. No DME needs identified at this time. Addendum: 10/30/18 at 1339 by MUSHTAQ WOOD PT Amended: Links added.
[2018-10-30] MEDS: HYDROmorphone 1mg/ml Carpuject IVP PRN ×2 (10:13→14:46)
[2018-10-30] MEDS: Pantoprazole Inj IVP SCH (11:54)
--- NOTE | 2018-10-30 11:56 | NUR ---
NURSE NOTES: Renal US taken, waiting for results. Patient is stable. Will continue to monitor.
--- NOTE | 2018-10-30 12:00 | NUR ---
NURSE NOTES: Dr Briceño aware of potassium level 5.5. Repeat Potassium lab draw ordered.
--- NOTE | 2018-10-30 12:08 | NUR ---
NURSE NOTES: Consent signed by patient and brother Yaya. Radiology aware. Awaiting garbage pick up worker.
--- NOTE | 2018-10-30 12:20 | Diagnostic Imaging Report ---
Indication: Status post the prostatectomy. Status post right ureteral stent. Exam performed for evaluation of hydronephrosis, preoperative evaluation for percutaneous nephrostomy. Technique: Grayscale and duplex Doppler imaging of the kidneys performed. Comparison: None Findings: The size, contour, and echogenicity of both kidneys are within normal limits. Slight lobulation of the left kidney noted. There is a parapelvic cyst measuring 1 cm and the left kidney. There is a 1.5 x 1 cm cyst in the right kidney exophytic involving the lower pole. There is no hydronephrosis on the right. There is mild hydronephrosis on the left. The right kidney measures 9.6 cm. in length. The left kidney measures 10.5 cm. in length. The IVC is patent. Urinary bladder is nondistended and not visualized. IMPRESSION: Mild left hydronephrosis. No hydronephrosis on the right. Known right ureteral stent is not visualized on ultrasound.
[2018-10-30] MEDS ORDERED: fentaNYL 100 mcg/2 mL IV ONE (14:41)
[2018-10-30] MEDS ORDERED: Midazolam 2mg/2ml Inj ONE (14:41)
[2018-10-30] MEDS ORDERED: Heparin1,000 units/500ml Premix(Conc:2 units/ml) INJ PRN (14:45)
--- NOTE | 2018-10-30 14:50 | NUR ---
NURSE NOTES: Patient taken to radiology for nephrostomy placement.
[2018-10-30] MEDS ORDERED: Omnipaque-300 100ml vial INJ PRN (15:00)
--- NOTE | 2018-10-30 15:32 | Pre-Procedure Note/Attestation ---
Pre-Procedure Note/Attestation Complete Prior to Procedure Planned Procedure: bilateral Indications for Procedure Pre-Operative Diagnosis: post prostatectom need for urinary diversion bilat hydronephrosis Attestation I attest that I discussed the nature of the procedure; its benefits; risks and complications; and alternatives (and the risks and benefits of such alternatives ), prior to the procedure, with the patient (or the patient's legal insurance claims representative). I attest that, if there was a reasonable possibility of needing a blood transfusion, the patient (or the patient's legal insurance claims representative) was given the [facility] standardized written summary, pursuant to the Manuel Lorie Blood Safety Act ([place] Health and Safety Code # 1645, as amended). I attest that I re-evaluated the patient just prior to the surgery and that there has been no change in the patient's H&P, except as documented below: Moisés Bailey MD Oct 30, 2018 15:32
--- NOTE | 2018-10-30 15:34 | Moderate Sedation - Procedural ---
Moderate Sedation HPI Home Medication Reported Medications Pembrolizumab (Keytruda) 100 Mg/4 Ml Vial, 100 MG IV, VIAL 10/28/18 Mirtazapine (REMERON) 30 Mg Tab.rapdis, 30 MG ORAL BEDTIME, TAB 10/28/18 Bupropion HCl (Wellbutrin Xl) 300 Mg Tab.er.24h, 300 MG ORAL DAILY for 30 Days, TAB 0 Refills 10/28/18 Patient History Allergies: Coded Allergies: No Known Allergies (Unverified , 10/28/18) Pre-Procedural Mod Sedation Pre-Assessment Time: 15:30 Pre-Sedation Assessment: Eval. Immed. Prior to Sed Airway Assessment (Malampati): II Heart: normal Lungs: normal Abdomen: normal Extremities: normal Evaluation Hx of untoward rxns to mod sed: No Plan for Moderate Sedation: Fentanyl ASA Score: II Informed Consent The nature of the procedure/sedation; its benefits; risks and complications; and alternatives (and the risks and benefits of such alternatives) were discussed with the patient (or their legal personal service representative), prior to the procedure. All questions were answered to the patient's (or their legal personal service representative's) satisfaction and the patient (or their legal personal service representative) gave informed consent to the procedure. I attest that I re-evaluated the patient just prior to the surgery and that there has been no change in the patient's H&P, except as documented below: Post Procedure Assessment Post Procedure TIme: 16:25 Communication: No Apparent Limitation Mental Status: Awake Respiration: Unlabored Skin Condition: WNL Adomen: WNL Nausea: NO Vomiting: NO Moisés Bailey MD Oct 30, 2018 15:34
--- NOTE | 2018-10-30 16:00 | Consultation ---
DATE OF CONSULTATION: 10/30/2018 CONSULTING PHYSICIAN: Sarath Briceño M.D. REFERRING PHYSICIAN: Mt Peralta M.D. REASON FOR CONSULTATION: 1. Acute kidney injury. 2. Hyperkalemia. HISTORY OF PRESENT ILLNESS: The patient is a 68-year-old gentleman with prostate cancer who underwent a prostate/urological surgery and was identified to have a large mass requiring reimplantation of the ureter in this complicated operative procedure. At this time, still awaiting operative note from Urology. Note, his creatinine had increased from 1.2 to 2.4, potassium of 5.6 and is now currently awaiting bilateral nephrostomy tubes. PAST MEDICAL HISTORY: 1. Colon carcinoma. 2. Prostate cancer. 3. Psych disorder. ALLERGIES: No known drug allergies. SOCIAL HISTORY: No current tobacco, alcohol, or illicit drug use. REVIEW OF SYSTEMS: NEUROLOGIC: The patient denies headache, change in vision, syncope, or presyncopal episodes. CARDIOVASCULAR: No current chest pain, palpitations, or angina. PULMONARY: No difficulty breathing, productive cough, or sputum. GASTROINTESTINAL/GENITOURINARY: The patient complaining of some mild abdominal pain. No nausea, vomiting, or diarrhea. ENDOCRINOLOGY: No night sweats, fevers, or chills LABORATORY DATA: Labs dated 10/30/2018, sodium 139, potassium 5.6, creatinine 2.4. White cell count 10.9, hemoglobin 10.2, platelet count 155. PHYSICAL EXAMINATION: VITAL SIGNS: Blood pressure 129/76, respiratory rate 16, pulse 95, temperature 98.7. GENERAL: The patient awake, alert, not otherwise in distress. HEENT: Extraocular muscles intact. No lymphadenopathy. Oropharyngeal mucosa is clear and dry. CARDIOVASCULAR: S1, S2. No rubs or gallops. PULMONARY: Clear to auscultation bilaterally. No rales, rhonchi, or wheezes. ABDOMINAL: Midline incision noted. Soft bowel sounds. LIDIA drain. EXTREMITIES: No edema noted. ASSESSMENT AND PLAN: 1. Acute kidney injury secondary to multifactorial ATN with possible obstruction and exposure to IV contrast, contrast-induced nephropathy, and NSAIDs. At this time, we will discontinue Ketoralac due to renal failure and hyperkalemia. We will continue IV hydration and await bilateral nephrostomy tubes. Also, await surgical operative note to review procedures completed involving the urological system. 2. Prostate cancer, status post robotic surgery. Await surgery report for evaluation. 3. Hyperkalemia due to NSAIDs, acute kidney injury, and IV fluids with potassium. At this time, we will discontinue NSAIDs and IV fluids have been adjusted to remove potassium supplementation. We will also avoid lactate ringers as they also contain potassium. 4. Hyperkalemia is going to be re-checked and treated if potassium remains elevated over 5.3. Sarath Briceño MD DR: SHAHZAD JOB#: [id number] CC:
--- NOTE | 2018-10-30 16:50 | NUR ---
RADIOLOGY NOTE: BILATERAL NEPHROSTOMY TUBES PLACED LT: LOCKING 8FT PIGTAIL CATHETER RT: NON LOCKING 8FT PIGTAIL CATHETER
--- NOTE | 2018-10-30 17:09 | Diagnostic Imaging Report ---
Indication: Need for urinary diversion. Recent prostatectomy. Indwelling stent on the right. Hydronephrosis. Procedure: Informed written consent was obtained. All elements of maximal sterile barrier technique were followed including: Hand hygiene and cap and mask and sterile gown and sterile gloves and a large sterile drape and 2% chlorhexidine for cutaneous antisepsis. Sterile cover was utilized for ultrasound. Fluoro dose: Fluoroscopy time: 350.4 seconds Air kerma: 151.22 mGy TECHNIQUE: Utilizing ultrasound guidance for needle placement, under local anesthesia with 1% lidocaine, a dermatotomy was made with scalpel blade in the right posterior flank. A nephrostomy access needle was placed into the right kidney. Contrast was injected to determine whether the needle tip was in the collecting system. Several attempts were made but were unsuccessful. A second access site was attempted, also without assess. The third 2000 is made slightly higher. The needle was placed within the collecting system. Contrast was injected and confirmed placement. A micropuncture wire was placed through the access needle. The needle was withdrawn. A micropuncture dilator was placed. The stylette was removed. An 035 guidewire was then placed within the collecting system. An 8 [place] nephrostomy tube was then inserted. The string was cut and not used due to the presence of the stent. Pigtail could not be reformed as the system is small and the catheter could not be rotated. Catheter was fixed to the skin in usual fashion. Patient tolerated procedure well. Utilizing a micropuncture needle and direct ultrasound guidance under local anesthesia, dermatotomy was made with a scalpel blade. The needle was placed within the collecting system on the first pass. Contrast was injected and filled the collecting system. A micropuncture wire was placed through the needle and the needle withdrawn. Micropuncture catheter was then placed. The stylet was removed. An 035 guidewire was then placed within the collecting system. An 8 [place] pigtail nephrostomy catheter was then placed. Wire was withdrawn. The pigtail was reformed in the system. Patient tolerated the procedure well. Catheter was fixed to the skin in usual fashion. 25 mcg of fentanyl was utilized for pain management. Findings: Images obtained during and after the procedure demonstrate the right nephrostomy tube and the collecting system with the tip in the proximal ureter. The pigtail was not formed on this side. There is no locking string on the right. On the left, pigtail is within the renal pelvis. Impression: Successful placement of bilateral nephrostomy tubes. No complication. Patient tolerated the procedure well. He was sent back to the floor in good condition.
--- NOTE | 2018-10-30 17:27 | NUR ---
NURSE NOTES: Patient arrived on unit via hospital bed. Stable. Denies pain or SOB. Patient's HR is 126, Dr. Peralta notified, will give NS bolus as ordered. Patient is asymptomatic and comfortable in bed. Patient oriented to room, call light, and unit. Surgical site clean, dry, and intact. Nephrostomy bags draining sanguinous urine. Will continue to monitor output. LIDIA is draining sanguinous urine. Mueller is intact. Patient is in bed in locked and lowest position with call light within reach. Will continue to monitor.
--- NOTE | 2018-10-30 17:45 | Surgery Progress Note ---
Surgery Progress Note Subjective Additional Comments wbc improved h/h noted cr elevated k elevated nephro input noted plan for b/l tubes today Objective Last 24 Hour Vital Signs Date Time Temp Pulse Resp B/P (MAP) Pulse Ox O2 Delivery O2 Flow Rate FiO2 10/30/18 17:15 97.7 117 26 140/79 99 Room Air 10/30/18 17:05 122 25 140/91 95 Room Air 10/30/18 16:55 118 26 136/77 96 Room Air 10/30/18 16:52 98.7 118 18 96 Nasal Cannula 3.0 118 100 10/30/18 16:50 121 28 138/76 99 Room Air 10/30/18 16:45 97.9 119 28 139/87 99 Room Air 10/30/18 16:30 117 18 145/85 (105) 100 10/30/18 16:25 120 18 140/84 (102) 100 10/30/18 16:20 128 18 144/95 (111) 100 10/30/18 16:15 124 18 138/91 (107) 100 10/30/18 16:10 123 18 137/91 (106) 100 10/30/18 16:05 122 18 140/83 (102) 100 10/30/18 16:00 115 18 140/86 (104) 100 10/30/18 15:55 121 18 147/84 (105) 100 10/30/18 15:50 118 18 137/86 (103) 100 10/30/18 15:45 119 18 143/91 (108) 100 10/30/18 15:40 114 18 139/88 (105) 99 10/30/18 15:35 109 18 142/84 (103) 99 10/30/18 15:30 98.7 101 18 148/88 (108) 99 10/30/18 12:00 99.5 104 20 95/62 (73) 98 10/30/18 09:00 Room Air 10/30/18 08:00 98.9 97 18 126/79 (95) 99 10/30/18 04:00 98.7 95 16 129/76 (93) 98 10/30/18 00:00 98.5 95 16 137/78 (97) 98 10/29/18 21:00 Nasal Cannula 2.0 10/29/18 20:00 98.5 93 18 149/87 (107) 98 I&O Intake and Output 10/29/18 10/30/18 19:00 07:00 Intake Total 120 ml 1200 ml Output Total 200 ml 430 ml Balance -80 ml 770 ml IV Total 120 ml 1200 ml Output Urine Total 0 ml 0 ml Drainage Total 200 ml 430 ml Dressing: saturated Wound: other Drains: alexander Cardiovascular: RSR Respiratory: clear Abdomen: soft, tenderness, other, decreased bowel sounds Extremities: no tenderness, no cyanosis, other Laboratory Tests Test 10/30/18 05:00 10/30/18 10:20 10/30/18 12:30 White Blood Count 10.9 K/UL (4.8-10.8) H Red Blood Count 3.17 M/UL (4.70-6.10) L Hemoglobin 10.2 G/DL (14.2-18.0) L Hematocrit 30.5 % (42.0-52.0) L Mean Corpuscular Volume 96 FL (80-99) Mean Corpuscular Hemoglobin 32.3 PG (27.0-31.0) H Mean Corpuscular Hemoglobin Concent 33.5 G/DL (32.0-36.0) Red Cell Distribution Width 10.7 % (11.6-14.8) L Platelet Count 155 K/UL (150-450) Mean Platelet Volume 9.4 FL (6.5-10.1) Neutrophils (%) (Auto) 83.1 % (45.0-75.0) H Lymphocytes (%) (Auto) 8.4 % (20.0-45.0) L Monocytes (%) (Auto) 8.0 % (1.0-10.0) Eosinophils (%) (Auto) 0.1 % (0.0-3.0) Basophils (%) (Auto) 0.5 % (0.0-2.0) Sodium Level 139 MMOL/L (136-145) Potassium Level 5.6 MMOL/L (3.5-5.1) H 5.5 MMOL/L (3.5-5.1) H 5.2 MMOL/L (3.5-5.1) H Chloride Level 106 MMOL/L (98-107) Carbon Dioxide Level 25 MMOL/L (21-32) Anion Gap 8 mmol/L (5-15) Blood Urea Nitrogen 18 mg/dL (7-18) Creatinine 2.4 MG/DL (0.55-1.30) #H Estimat Glomerular Filtration Rate 33.0 mL/min (>60) Glucose Level 146 MG/DL (74-106) H Calcium Level 8.7 MG/DL (8.5-10.1) Plan Problems: (1) Abdominal pain Assessment & Plan: 68M s/p recovering abd pain labs noted exam as above -BILATERAL NEPHROSTOMY TUBES PLACED LT: LOCKING 8FT PIGTAIL CATHETER RT: NON LOCKING 8FT PIGTAIL CATHETER -will monitor abd exam -npo -iv fluids -dressings -will follow with exam and recs thank you for allowing me to participate in patients care. (2) Prostate CA Giacomo Berrios Oct 30, 2018 17:45
--- NOTE | 2018-10-30 18:00 | NUR ---
NURSE NOTES: Clots noted in drainage bag for right nephrostomy. Dr. Berrios made aware. Will flush as needed and order H&H tonight as ordered.
--- NOTE | 2018-10-30 18:22 | NUR ---
NURSE NOTES: 435cc sanguinous drainage from LIDIA collected during shift.
--- NOTE | 2018-10-30 19:30 | NUR ---
HAND-OFF: Report given to Miladis RN. Patient is stable.
--- NOTE | 2018-10-30 19:53 | NUR ---
NURSE NOTES: RECEIVED PT FROM HOLLY BENITEZ. PT IS AWAKE, AAOX1, ON ROOM AIR, NO ACUTE DISTRESS NOTED. LEFT SIDE LIDIA, ADAMS AND BILATERAL SIDE NEPHROSTOMIES NOTED INTACT AND PATENT. DRAINING WELL. RIGHT WRIST 22G IV IS INTACT AND PATENT. DRESSINGS ON ABDOMEN MIDLINE IS INTACT AND DRY. BED IS LOCKED AND LOW, BED ALARMS ACTIVE, SIDE RAILS UP X2 AND CALL LIGHT IS WITHIN REACH. WILL CONTINUE TO MONITOR.
[2018-10-30 19:58] LABS: BASOPHILS % (AUTO) 0.6 % (0.0-2.0); HEMATOCRIT 26.6 % (42.0-52.0); HEMOGLOBIN 9.2 G/DL (14.2-18.0); LYMPHOCYTES % (AUTO) 9.1 % (20.0-45.0); MEAN CORPUSCULAR VOLUME 96 FL (80-99); NEUTROPHILS % (AUTO) 83.3 % (45.0-75.0); PLATELET COUNT 136 K/UL (150-450); RED BLOOD COUNT 2.77 M/UL (4.70-6.10); RED CELL DISTRIBUTION WIDTH 10.5 % (11.6-14.8); WHITE BLOOD COUNT 8.8 K/UL (4.8-10.8)
[2018-10-31] VITALS: BP 112/65
--- NOTE | 2018-10-31 03:30 | NUR ---
NURSE NOTES: PT IS ASLEEP. VSS.
[2018-10-31 04:00] VITALS: BP 137/86
--- NOTE | 2018-10-31 05:14 | NUR ---
NURSE NOTES: CHANGED DRESSINGS ON ABDOMEN.
--- NOTE | 2018-10-31 05:15 | Operative Note - Dictated ---
DATE OF OPERATION: 10/29/2018 NOTE: POOR AUDIO PREOPERATIVE DIAGNOSIS: Prostate cancer. POSTOPERATIVE DIAGNOSIS: Prostate cancer. OPERATION: Radical retropubic prostatectomy with a right ureteral reimplant and double-J stent placement into the right kidney. 3RD PRESSMAN: Mickey Obando M.D. EXAMINER OF CURRENCY: Gabino Pace M.D. FINDINGS: Enlarged prostate with induration growing underneath the bladder with obstruction of the right ureter and bladder neck. INDICATIONS FOR SURGERY: The patient is an unfortunate gentleman who was diagnosed with high-grade prostate cancer. He also has a history of lung cancer and colon cancer. Cystoscopy in the office showed a large indurated prostate with invasion into the bladder neck and trigone suspicious for bladder cancer as well versus prostate cancer. Treatment options were explained to him in great length, and had multiple discussions with his primary oncologist by the patient's access services representative and the patient himself regarding strategy, observation, radiation therapy, stent placement versus attempt of radical oncological surgery. He insisted on moving with aggressive treatment and radical prostatectomy. All potential complications were explained to the patient including infections, bleedings, PR, PE, , rectal injuries, bladder injuries, etc. He signed the consent. PROCEDURE IN DETAIL: The patient was brought to the operating room, placed in supine position, and prepped and draped in standard fashion. Under general anesthesia, a midline laparotomy incision was made . [place] omni retractor was placed, and the rectus muscles were retracted and the prostate was visualized and examined. It is quite large in size underneath the bladder with some adhesions to the rectum. Dissection was started in the which were ____ stay sutures and the urethra was then transected revealing the [place] catheter that was retracted cephalad. Sharp and blunt dissection was attempted to separate the prostate from the rectum. In several areas, the adhesions were directly had to use sharp dissection, Metzenbaum scissors, and take a small piece of rectal so we can remove the prostate from the rectum. Dr. Pace performed primary two-layer reconstruction . After that, dissection was carried through the bladder neck where the tumor mass in the proximal present. Attempts to dissect the mass from the right ureter was sharp blunt dissection, prostate was dissected from the right the deep obstruction of the right collecting system. Prostate then was further dissected from the left side and the left ureter was also cannulated dissected preserving the ureter into the bladder neck. After the tumor was removed completely and sent for pathologic examination, right ureter was re-implanted into the posterior side of the bladder using end-to-side anastomosis using running interrupted 4-0 Vicryl sutures 26 cm. Bladder was then closed with a second layer as well to prevent . After that, bladder neck was reconstructed using running 2-0 Vicryl suture and reapproximated to the urethra using six 2-0 Vicryl sutures and . The division of the bladder was very hard because the bladder was severely adhered to the rectal wall and also to the surrounding tissues around the prostate dissection. anastomosis together especially anteriorly. There was a substantial tension on the anastomosis from the retained bladder. The bladder was irrigated and there was a small leak which was from the posterior anastomosis the bladder. Double-J stent into the right ureter, and the rest of the specimen was removed and sent to the pathology. LIDIA drain was placed as was the [place] catheter, and the wound was closed in multiple layers. [place] for the skin. Estimated blood loss was approximately 400 mL. Mickey Obando M.D. DR: CHUNG JOB#: [id number] CC:
[2018-10-31 06:43] LABS: HEMATOCRIT 24.9 % (42.0-52.0); HEMOGLOBIN 8.3 G/DL (14.2-18.0); LYMPHOCYTES % (AUTO) 9.9 % (20.0-45.0); MEAN CORPUSCULAR VOLUME 97 FL (80-99); NEUTROPHILS % (AUTO) 81.1 % (45.0-75.0); PLATELET COUNT 146 K/UL (150-450); RED BLOOD COUNT 2.57 M/UL (4.70-6.10); WHITE BLOOD COUNT 10.2 K/UL (4.8-10.8)
--- NOTE | 2018-10-31 06:47 | 48 Hour Post Anesthesia Eval ---
Post Anesthesia Evaluation Procedure: Open Prostatectomy Date of Evaluation: Oct 30, 2018 Airway: patent Nausea: No Vomiting: No Hydration Status: adequate Cardiopulmonary Status: at baseline Mental Status/LOC: patient returned to baseline Post-Anesthesia Complications: 0 Follow-up care needed: N/A - further care as per primary team Gillian Chopra MD Oct 31, 2018 06:47
[2018-10-31 06:54] LABS: ANION GAP 9 mmol/L (5-15); BLOOD UREA NITROGEN 13 mg/dL (7-18); CALCIUM 8.6 MG/DL (8.5-10.1); CARBON DIOXIDE 25 MMOL/L (21-32); CHLORIDE 108 MMOL/L (98-107); CREATININE 1.2 MG/DL (0.55-1.30); POTASSIUM 4.7 MMOL/L (3.5-5.1); SODIUM 142 MMOL/L (136-145)
[2018-10-31] MEDS: D5 1/2NS 1,000 ML IV SCH (07:14)
--- NOTE | 2018-10-31 07:30 | NUR ---
NURSE NOTES: Patient lying in bed awake. No complain of pain or distress at this time. Surgical dressing intact and dry. Bilateral Uresil bag, LIDIA and Mesa catheter patent and draining well. IV dressing intact and dry. Bed lowest position. Call light within reach. Will continue to monitor.
[2018-10-31 08:00] VITALS: BP 121/76
[2018-10-31] MEDS: Nephrovite tab (Rena-Vite) ORAL SCH (09:30)
[2018-10-31] MEDS: Pantoprazole Inj IVP SCH (09:30)
[2018-10-31] MEDS: BuPROPion XL 150mg tab ORAL SCH (09:30)
[2018-10-31] MEDS: HYDROmorphone 1mg/ml Carpuject IVP PRN ×2 (09:31→20:12)
--- NOTE | 2018-10-31 10:28 | Diagnostic Imaging Report ---
Please refer to the "nephrostogram injection" report 10/30/2018, 14:36.
--- NOTE | 2018-10-31 10:30 | Surgery Progress Note ---
Surgery Progress Note Subjective Additional Comments low grade fevers tachy at times leukocytosis improved h/h noted electrolytes and renal function improved drain care performed at bedside otherwise doing well. Objective Last 24 Hour Vital Signs Date Time Temp Pulse Resp B/P (MAP) Pulse Ox O2 Delivery O2 Flow Rate FiO2 10/31/18 09:00 Room Air 10/31/18 08:00 99.4 107 17 121/76 (91) 98 10/31/18 04:00 98.5 90 18 137/86 (103) 99 10/31/18 00:00 100.1 112 20 112/65 (81) 98 10/30/18 21:00 Room Air 10/30/18 20:00 99.8 115 18 99/63 (75) 96 10/30/18 17:15 97.7 117 26 140/79 99 Room Air 10/30/18 17:05 122 25 140/91 95 Room Air 10/30/18 16:55 118 26 136/77 96 Room Air 10/30/18 16:52 98.7 118 18 96 Nasal Cannula 3.0 118 100 10/30/18 16:50 121 28 138/76 99 Room Air 10/30/18 16:45 97.9 119 28 139/87 99 Room Air 10/30/18 16:30 117 18 145/85 (105) 100 10/30/18 16:25 120 18 140/84 (102) 100 10/30/18 16:20 128 18 144/95 (111) 100 10/30/18 16:15 124 18 138/91 (107) 100 10/30/18 16:10 123 18 137/91 (106) 100 10/30/18 16:05 122 18 140/83 (102) 100 10/30/18 16:00 115 18 140/86 (104) 100 10/30/18 15:55 121 18 147/84 (105) 100 10/30/18 15:50 118 18 137/86 (103) 100 10/30/18 15:45 119 18 143/91 (108) 100 10/30/18 15:40 114 18 139/88 (105) 99 10/30/18 15:35 109 18 142/84 (103) 99 10/30/18 15:30 98.7 101 18 148/88 (108) 99 10/30/18 12:00 99.5 104 20 95/62 (73) 98 I&O Intake and Output 10/30/18 10/31/18 19:00 07:00 Intake Total 350 ml 750 ml Output Total 130 ml 3760 ml Balance 220 ml -3010 ml IV Total 350 ml 750 ml Output Urine Total 200 ml Drainage Total 120 ml 3560 ml Estimated Blood Loss 10 ml Dressing: saturated Wound: clean Drains: other Cardiovascular: RSR Respiratory: clear Abdomen: soft, distended, tenderness, decreased bowel sounds Extremities: no edema, no tenderness, no cyanosis Laboratory Tests Test 10/30/18 12:30 10/30/18 19:50 10/31/18 05:00 Potassium Level 5.2 MMOL/L (3.5-5.1) H 4.7 MMOL/L (3.5-5.1) White Blood Count 8.8 K/UL (4.8-10.8) 10.2 K/UL (4.8-10.8) Red Blood Count 2.77 M/UL (4.70-6.10) L 2.57 M/UL (4.70-6.10) L Hemoglobin 9.2 G/DL (14.2-18.0) L 8.3 G/DL (14.2-18.0) L Hematocrit 26.6 % (42.0-52.0) L 24.9 % (42.0-52.0) L Mean Corpuscular Volume 96 FL (80-99) 97 FL (80-99) Mean Corpuscular Hemoglobin 33.4 PG (27.0-31.0) H 32.4 PG (27.0-31.0) H Mean Corpuscular Hemoglobin Concent 34.8 G/DL (32.0-36.0) 33.5 G/DL (32.0-36.0) Red Cell Distribution Width 10.5 % (11.6-14.8) L 11.0 % (11.6-14.8) L Platelet Count 136 K/UL (150-450) L 146 K/UL (150-450) L Mean Platelet Volume 9.7 FL (6.5-10.1) 9.8 FL (6.5-10.1) Neutrophils (%) (Auto) 83.3 % (45.0-75.0) H 81.1 % (45.0-75.0) H Lymphocytes (%) (Auto) 9.1 % (20.0-45.0) L 9.9 % (20.0-45.0) L Monocytes (%) (Auto) 7.0 % (1.0-10.0) 8.0 % (1.0-10.0) Eosinophils (%) (Auto) 0.0 % (0.0-3.0) 0.0 % (0.0-3.0) Basophils (%) (Auto) 0.6 % (0.0-2.0) 1.0 % (0.0-2.0) Sodium Level 142 MMOL/L (136-145) Chloride Level 108 MMOL/L (98-107) H Carbon Dioxide Level 25 MMOL/L (21-32) Anion Gap 9 mmol/L (5-15) Blood Urea Nitrogen 13 mg/dL (7-18) Creatinine 1.2 MG/DL (0.55-1.30) Estimat Glomerular Filtration Rate > 60 mL/min (>60) Glucose Level 128 MG/DL (74-106) H Calcium Level 8.6 MG/DL (8.5-10.1) Plan Problems: (1) Abdominal pain Assessment & Plan: 68M s/p recovering abd pain labs noted exam as above -BILATERAL NEPHROSTOMY TUBES PLACED LT: LOCKING 8FT PIGTAIL CATHETER RT: NON LOCKING 8FT PIGTAIL CATHETER -will monitor abd exam -npo -iv fluids -dressings -drain care -nephrostomy tube care -abx -will follow with exam and recs thank you for allowing me to participate in patients care. (2) Prostate CA Giacomo Berrios Oct 31, 2018 10:30
[2018-10-31 12:00] VITALS: BP 133/78
--- NOTE | 2018-10-31 12:45 | NUR ---
HAND-OFF: Report given to Amber RN. Patient in stable condition.
--- NOTE | 2018-10-31 13:00 | NUR ---
NURSE NOTES: received patient in bed patient awake, alert oriented x4, denies pain or distress at this time. Surgical dressing intact and dry. Bilateral Uresil bag, LIDIA and Mesa catheter patent and draining well. IVF patent and infusing well. still NPO, ON fall precaution, Bed lowest position. Call light within reach. Will continue to monitor. crystal baez
--- NOTE | 2018-10-31 13:01 | NUR ---
JUICE TESTERCLOTHES MODEL SI; POD #2 S/P RADICAL RETROPUBIC PROSTATECTOMY T. 100.1 HR 112 RR 20 B/P 112/65 IS: ZOSYN IV IVF D5NS@ 75ML/HR PROTONIX IV MED/SURG STATUS
[2018-10-31] MEDS: Piperacillin/Tazobactam 3.375 GM in NS 110 ML IVPB SCH ×2 (13:12→21:03)
--- NOTE | 2018-10-31 13:58 | Pulmonology Progress Note ---
Assessment/Plan Assessment/Plan IMPRESSION: This is a 68-year-old male with underlyin. Psychiatric disorder. 2. History of colon CA. 3. Prostate CA. 4. S/p prostatectomy, open, with resection of rectum and repositioning of bladder/ureter DISCUSSION: Seen by renal S/p bilateral perc nephrostomies Will follow Discussed with urology Subjective Interval Events: Looking and feeling better Constitutional: Reports: no symptoms HEENT: Repors: no symptoms Respiratory: Reports: no symptoms Cardiovascular: Reports: no symptoms Gastrointestinal/Abdominal: Reports: no symptoms Allergies: Coded Allergies: No Known Allergies (Unverified , 10/28/18) Objective Last 24 Hour Vital Signs Date Time Temp Pulse Resp B/P (MAP) Pulse Ox O2 Delivery O2 Flow Rate FiO2 10/31/18 13:41 Room Air 10/31/18 12:00 98.3 101 19 133/78 (96) 97 10/31/18 09:00 Room Air 10/31/18 08:00 99.4 107 17 121/76 (91) 98 10/31/18 04:00 98.5 90 18 137/86 (103) 99 10/31/18 00:00 100.1 112 20 112/65 (81) 98 10/30/18 21:00 Room Air 10/30/18 20:00 99.8 115 18 99/63 (75) 96 10/30/18 17:15 97.7 117 26 140/79 99 Room Air 10/30/18 17:05 122 25 140/91 95 Room Air 10/30/18 16:55 118 26 136/77 96 Room Air 10/30/18 16:52 98.7 118 18 96 Nasal Cannula 3.0 118 100 10/30/18 16:50 121 28 138/76 99 Room Air 10/30/18 16:45 97.9 119 28 139/87 99 Room Air 10/30/18 16:30 117 18 145/85 (105) 100 10/30/18 16:25 120 18 140/84 (102) 100 10/30/18 16:20 128 18 144/95 (111) 100 10/30/18 16:15 124 18 138/91 (107) 100 10/30/18 16:10 123 18 137/91 (106) 100 10/30/18 16:05 122 18 140/83 (102) 100 10/30/18 16:00 115 18 140/86 (104) 100 10/30/18 15:55 121 18 147/84 (105) 100 10/30/18 15:50 118 18 137/86 (103) 100 10/30/18 15:45 119 18 143/91 (108) 100 10/30/18 15:40 114 18 139/88 (105) 99 10/30/18 15:35 109 18 142/84 (103) 99 10/30/18 15:30 98.7 101 18 148/88 (108) 99 Intake and Output 10/30/18 10/31/18 19:00 07:00 Intake Total 350 ml 750 ml Output Total 130 ml 3760 ml Balance 220 ml -3010 ml IV Total 350 ml 750 ml Output Urine Total 200 ml Drainage Total 120 ml 3560 ml Estimated Blood Loss 10 ml General Appearance: no acute distress HEENT: normocephalic Respiratory/Chest: chest wall non-tender Cardiovascular: normal peripheral pulses Abdomen: normal bowel sounds Microbiology Date/Time Source Procedure Growth Status 10/28/18 15:00 Nasal Nares MRSA Culture - Final NO METHICILLIN RESISTANT STAPH AUREUS... Complete Laboratory Tests 10/30/18 19:50: White Blood Count 8.8, Red Blood Count 2.77L, Hemoglobin 9.2L, Hematocrit 26.6L , Mean Corpuscular Volume 96, Mean Corpuscular Hemoglobin 33.4H, Mean Corpuscular Hemoglobin Concent 34.8, Red Cell Distribution Width 10.5L, Platelet Count 136L, Mean Platelet Volume 9.7, Neutrophils (%) (Auto) 83.3H, Lymphocytes (%) (Auto) 9.1L, Monocytes (%) (Auto) 7.0, Eosinophils (%) (Auto) 0.0, Basophils (%) (Auto) 0.6 10/31/18 05:00: White Blood Count 10.2, Red Blood Count 2.57L, Hemoglobin 8.3L, Hematocrit 24.9L , Mean Corpuscular Volume 97, Mean Corpuscular Hemoglobin 32.4H, Mean Corpuscular Hemoglobin Concent 33.5, Red Cell Distribution Width 11.0L, Platelet Count 146L, Mean Platelet Volume 9.8, Neutrophils (%) (Auto) 81.1H, Lymphocytes (%) (Auto) 9.9L, Monocytes (%) (Auto) 8.0, Eosinophils (%) (Auto) 0.0, Basophils (%) (Auto) 1.0, Sodium Level 142, Potassium Level 4.7, Chloride Level 108H, Carbon Dioxide Level 25, Anion Gap 9, Blood Urea Nitrogen 13, Creatinine 1.2, Estimat Glomerular Filtration Rate > 60, Glucose Level 128H, Calcium Level 8.6 Current Medications Medications (Trade) Dose Ordered Sig/Juliano Route PRN Reason Start Time Stop Time Status Last Admin Dose Admin Acetaminophen (Tylenol) 650 mg Q4H PRN ORAL T>100.5 10/29/18 15:15 11/28/18 15:14 Bupropion HCl (Wellbutrin XL) 300 mg DAILY ORAL 10/29/18 09:00 11/28/18 08:59 10/31/18 09:30 Dextrose/Sodium Chloride 1,000 ml @ 75 mls/hr [id number] IV 10/30/18 08:15 11/29/18 08:14 10/31/18 07:14 Heparin Sodium/ Sodium Chloride (Heparin 1000 units/500ml Premix) 1,000 unit ONCE PRN INJ radiology procedure 10/30/18 14:45 10/31/18 14:44 Hydromorphone HCl (Dilaudid) 1 mg Q3H PRN IVP Severe Pain (Pain Scale 7-10) 10/29/18 15:15 11/05/18 11:59 10/31/18 09:31 Iohexol (OMNIPAQUE-300 100ml) 200 ml ONCE PRN INJ radiology procedure 10/30/18 15:00 11/01/18 14:59 Iopamidol (Isovue-300 100ml) 100 ml NOW PRN INJ per MD order 10/30/18 09:45 11/01/18 09:44 Lidocaine HCl (Xylocaine 1% 30ml) 30 ml ONCE PRN INJ per MD order 10/30/18 09:45 11/01/18 09:44 Lidocaine HCl (Xylocaine 1% 30ml) 30 ml ONCE PRN INJ radiology procedure 10/30/18 14:45 10/31/18 14:44 Mirtazapine (Remeron) 30 mg QHS ORAL 10/28/18 21:00 11/27/18 20:59 10/30/18 20:49 Ondansetron HCl (Zofran) 4 mg Q6H PRN IVP Nausea & Vomiting 10/29/18 15:30 11/28/18 15:29 Pantoprazole (Protonix) 40 mg DAILY IVP 10/30/18 11:00 11/29/18 10:59 10/31/18 09:30 Piperacillin Sod/ Tazobactam Sod 3.375 gm/Sodium Chloride 110 ml @ 27.5 mls/hr EVERY 8 HOURS IVPB 10/31/18 14:00 11/05/18 13:59 10/31/18 13:12 Temazepam (Restoril) 7.5 mg HSPRN PRN ORAL Insomnia 10/29/18 21:00 11/05/18 20:59 Vitamin B Complex/ Vit C/Folic Acid (Nephrovite) 1 tab DAILY ORAL 10/31/18 09:00 11/30/18 08:59 10/31/18 09:30 Mt Peralta MD Oct 31, 2018 13:58
[2018-10-31 15:59] VITALS: BP 120/61
--- NOTE | 2018-10-31 19:11 | NUR ---
HAND-OFF: Report given to nirav. patient stable [facility].
--- NOTE | 2018-10-31 19:42 | NUR ---
nurse notes discharge in stable condition with all belongings taken accompanied by ambulance personnel, discharged via private car, endorsed to ambulance personnel personnel IV site swollen patient refused reinsertion crystal baez
--- NOTE | 2018-10-31 19:58 | NUR ---
NURSE'S NOTES: RECEIVED PATIENT AWAKE, ALERT AND ORIENTED; ADMITS TO 8/10 ABDOMINAL SURGICAL AREA PAIN; NOTED BILATERAL URESILS - RIGHT WITH SMALL AMOUNT OF CLEAR DRAINAGE, LEFT WITH MODERATE AMOUNT OF SANGUINEOUS DRAINAGE. ALSO NOTED IS A LIDIA DRAIN ALSO ON THE LEFT SIDE; WITH BLOODY DRAINAGE; ADAMS ALSO WITH SANGUINEOUS OUTPUT. PLAN OF CARE DISCUSSED WITH PATIENT INCLUDING PAIN MANAGEMENT; PATIENT IS AGREEABLE. WILL CONTINUE TO MONITOR.
[2018-10-31 20:00] VITALS: BP 118/74
[2018-11-01] VITALS: BP 125/81
[2018-11-01] MEDS: D5 1/2NS 1,000 ML IV SCH ×2 (00:15→13:45)
[2018-11-01 04:00] VITALS: BP 156/79
--- NOTE | 2018-11-01 04:28 | NUR ---
Nurse's Note: Observed the following during rounding at this hour: 1. left nephrostomy - tea-colored fluid in drainage bag - 250 ml collected 2. right nephrostomy - 150 mls of bright red drainage with huge blood clots in collection bag; flushed tubing with 5mls NS as ordered; all blockages caused by the blood clots removed; now draining well 3. duong catheter - noted with 200 mls of bright red output; duong bag changed due to leakage; aseptic technique applied; patient tolerated procedure well. 4. deferred offer for am care; prefers bath to be done in am; however, whole bed linens changed. 5. no new skin issues noted as of this time
[2018-11-01 05:15] LABS: HEMATOCRIT 23.3 % (42.0-52.0); HEMOGLOBIN 7.8 G/DL (14.2-18.0); MEAN CORPUSCULAR VOLUME 97 FL (80-99); PLATELET COUNT 146 K/UL (150-450); RED CELL DISTRIBUTION WIDTH 10.5 % (11.6-14.8); WHITE BLOOD COUNT 9.2 K/UL (4.8-10.8)
[2018-11-01 05:36] LABS: ALANINE AMINOTRANSFERASE 14 U/L (12-78); ALBUMIN 2.8 G/DL (3.4-5.0); ALBUMIN/GLOBULIN RATIO 0.8 (1.0-2.7); ALKALINE PHOSPHATASE 62 U/L (46-116); ANION GAP 8 mmol/L (5-15); ASPARTATE AMINO TRANSFERASE 13 U/L (15-37); BILIRUBIN,TOTAL 0.5 MG/DL (0.2-1.0); BLOOD UREA NITROGEN 10 mg/dL (7-18); CALCIUM 9.2 MG/DL (8.5-10.1); CARBON DIOXIDE 25 MMOL/L (21-32); CHLORIDE 108 MMOL/L (98-107); CREATININE 1.1 MG/DL (0.55-1.30); POTASSIUM 4.7 MMOL/L (3.5-5.1); SODIUM 141 MMOL/L (136-145)
[2018-11-01] MEDS: Piperacillin/Tazobactam 3.375 GM in NS 110 ML IVPB SCH ×3 (05:38→21:29)
--- NOTE | 2018-11-01 06:47 | NUR ---
nurse's notes: no other significant changes noted since last rounds done; updated I&Os. no incidents of falls, injuries or new skin breakdown reported will continue to monitor.
--- NOTE | 2018-11-01 07:05 | Pulmonology Progress Note ---
Assessment/Plan Assessment/Plan IMPRESSION: This is a 68-year-old male with underlyin. Psychiatric disorder. 2. History of colon CA. 3. Prostate CA. 4. S/p prostatectomy, open, with resection of rectum and repositioning of bladder/ureter DISCUSSION: Seen by renal S/p bilateral perc nephrostomies Will follow Discussed with urology Lab results noted Creatinine now normal Hgb 7.8 Subjective Interval Events: Looking abd feeling better Constitutional: Reports: no symptoms HEENT: Repors: no symptoms Respiratory: Reports: no symptoms Cardiovascular: Reports: no symptoms Gastrointestinal/Abdominal: Reports: no symptoms Allergies: Coded Allergies: No Known Allergies (Unverified , 10/28/18) Objective Last 24 Hour Vital Signs Date Time Temp Pulse Resp B/P (MAP) Pulse Ox O2 Delivery O2 Flow Rate FiO2 11/01/18 04:00 98.6 105 20 156/79 (104) 99 11/01/18 00:00 99.2 99 20 125/81 (96) 98 10/31/18 21:00 Room Air 10/31/18 20:00 98.7 100 20 118/74 (89) 97 10/31/18 15:59 97.1 64 19 120/61 (80) 97 10/31/18 13:41 Room Air 10/31/18 12:00 98.3 101 19 133/78 (96) 97 10/31/18 09:00 Room Air 10/31/18 08:00 99.4 107 17 121/76 (91) 98 Intake and Output 10/31/18 11/01/18 18:59 06:59 Intake Total 261.5 ml 710.0 ml Output Total 1260 ml 930 ml Balance -998.5 ml -220.0 ml IV Total 261.5 ml 710.0 ml Output Urine Total 100 ml 200 ml Drainage Total 1160 ml 730 ml General Appearance: no acute distress HEENT: normocephalic Respiratory/Chest: chest wall non-tender Cardiovascular: normal peripheral pulses, normal rate Abdomen: normal bowel sounds Laboratory Tests 11/01/18 04:45: White Blood Count 9.2, Red Blood Count 2.40L, Hemoglobin 7.8L, Hematocrit 23.3L , Mean Corpuscular Volume 97, Mean Corpuscular Hemoglobin 32.5H, Mean Corpuscular Hemoglobin Concent 33.4, Red Cell Distribution Width 10.5L, Platelet Count 146L, Mean Platelet Volume 9.4, Neutrophils (%) (Auto) , Lymphocytes (%) (Auto) , Monocytes (%) (Auto) , Eosinophils (%) (Auto) , Basophils (%) (Auto) , Neutrophils % (Manual) [Pending], Lymphocytes % (Manual) [Pending], Platelet Estimate [Pending], Platelet Morphology [Pending], Sodium Level 141, Potassium Level 4.7, Chloride Level 108H, Carbon Dioxide Level 25, Anion Gap 8, Blood Urea Nitrogen 10, Creatinine 1.1, Estimat Glomerular Filtration Rate > 60, Glucose Level 118H, Calcium Level 9.2, Total Bilirubin 0.5 , Aspartate Amino Transf (AST/SGOT) 13L, Alanine Aminotransferase (ALT/SGPT) 14 , Alkaline Phosphatase 62, Total Protein 6.4, Albumin 2.8L, Globulin 3.6, Albumin/Globulin Ratio 0.8L Current Medications Medications (Trade) Dose Ordered Sig/Juliano Route PRN Reason Start Time Stop Time Status Last Admin Dose Admin Acetaminophen (Tylenol) 650 mg Q4H PRN ORAL T>100.5 10/29/18 15:15 11/28/18 15:14 Bupropion HCl (Wellbutrin XL) 300 mg DAILY ORAL 10/29/18 09:00 11/28/18 08:59 10/31/18 09:30 Dextrose/Sodium Chloride 1,000 ml @ 75 mls/hr [id number] IV 10/30/18 08:15 11/29/18 08:14 10/31/18 07:14 Hydromorphone HCl (Dilaudid) 1 mg Q3H PRN IVP Severe Pain (Pain Scale 7-10) 10/29/18 15:15 11/05/18 11:59 10/31/18 20:12 Iohexol (OMNIPAQUE-300 100ml) 200 ml ONCE PRN INJ radiology procedure 10/30/18 15:00 11/01/18 14:59 Iopamidol (Isovue-300 100ml) 100 ml NOW PRN INJ per MD order 10/30/18 09:45 11/01/18 09:44 Lidocaine HCl (Xylocaine 1% 30ml) 30 ml ONCE PRN INJ per MD order 10/30/18 09:45 11/01/18 09:44 Mirtazapine (Remeron) 30 mg QHS ORAL 10/28/18 21:00 11/27/18 20:59 10/31/18 20:11 Ondansetron HCl (Zofran) 4 mg Q6H PRN IVP Nausea & Vomiting 10/29/18 15:30 11/28/18 15:29 Pantoprazole (Protonix) 40 mg DAILY IVP 10/30/18 11:00 11/29/18 10:59 10/31/18 09:30 Piperacillin Sod/ Tazobactam Sod 3.375 gm/Sodium Chloride 110 ml @ 27.5 mls/hr EVERY 8 HOURS IVPB 10/31/18 14:00 11/05/18 13:59 11/01/18 05:38 Temazepam (Restoril) 7.5 mg HSPRN PRN ORAL Insomnia 10/29/18 21:00 11/05/18 20:59 10/31/18 21:03 Vitamin B Complex/ Vit C/Folic Acid (Nephrovite) 1 tab DAILY ORAL 10/31/18 09:00 11/30/18 08:59 10/31/18 09:30 Mt Peralta MD Nov 01, 2018 07:05
[2018-11-01 08:00] VITALS: BP 138/70
[2018-11-01] MEDS ORDERED: D5 1/2NS 1000ml IV ONE (08:32)
[2018-11-01] MEDS ORDERED: Tubing IV Secondary IV ONE (08:32)
--- NOTE | 2018-11-01 08:44 | Surgery Progress Note ---
Surgery Progress Note Subjective Additional Comments afebrile, HD Stable labs improved exam stable dressings dry today and less drainage drain alvino clearing up nephrostomy tubes functional Objective Last 24 Hour Vital Signs Date Time Temp Pulse Resp B/P (MAP) Pulse Ox O2 Delivery O2 Flow Rate FiO2 11/01/18 04:00 98.6 105 20 156/79 (104) 99 11/01/18 00:00 99.2 99 20 125/81 (96) 98 10/31/18 21:00 Room Air 10/31/18 20:00 98.7 100 20 118/74 (89) 97 10/31/18 15:59 97.1 64 19 120/61 (80) 97 10/31/18 13:41 Room Air 10/31/18 12:00 98.3 101 19 133/78 (96) 97 10/31/18 09:00 Room Air I&O Intake and Output 10/31/18 11/01/18 18:59 06:59 Intake Total 261.5 ml 710.0 ml Output Total 1260 ml 930 ml Balance -998.5 ml -220.0 ml IV Total 261.5 ml 710.0 ml Output Urine Total 100 ml 200 ml Drainage Total 1160 ml 730 ml Dressing: dry Wound: clean Drains: other Cardiovascular: RSR Respiratory: clear Abdomen: soft, non-tender, decreased bowel sounds Extremities: no edema, no tenderness, no cyanosis Laboratory Tests Test 11/01/18 04:45 White Blood Count 9.2 K/UL (4.8-10.8) Red Blood Count 2.40 M/UL (4.70-6.10) L Hemoglobin 7.8 G/DL (14.2-18.0) L Hematocrit 23.3 % (42.0-52.0) L Mean Corpuscular Volume 97 FL (80-99) Mean Corpuscular Hemoglobin 32.5 PG (27.0-31.0) H Mean Corpuscular Hemoglobin Concent 33.4 G/DL (32.0-36.0) Red Cell Distribution Width 10.5 % (11.6-14.8) L Platelet Count 146 K/UL (150-450) L Mean Platelet Volume 9.4 FL (6.5-10.1) Neutrophils (%) (Auto) % (45.0-75.0) Lymphocytes (%) (Auto) % (20.0-45.0) Monocytes (%) (Auto) % (1.0-10.0) Eosinophils (%) (Auto) % (0.0-3.0) Basophils (%) (Auto) % (0.0-2.0) Differential Total Cells Counted 100 Neutrophils % (Manual) 74 % (45-75) Lymphocytes % (Manual) 10 % (20-45) L Monocytes % (Manual) 13 % (1-10) H Eosinophils % (Manual) 3 % (0-3) Basophils % (Manual) 0 % (0-2) Band Neutrophils 0 % (0-8) Platelet Estimate Decreased L Platelet Morphology Normal Macrocytosis 1+ Sodium Level 141 MMOL/L (136-145) Potassium Level 4.7 MMOL/L (3.5-5.1) Chloride Level 108 MMOL/L (98-107) H Carbon Dioxide Level 25 MMOL/L (21-32) Anion Gap 8 mmol/L (5-15) Blood Urea Nitrogen 10 mg/dL (7-18) Creatinine 1.1 MG/DL (0.55-1.30) Estimat Glomerular Filtration Rate > 60 mL/min (>60) Glucose Level 118 MG/DL (74-106) H Calcium Level 9.2 MG/DL (8.5-10.1) Total Bilirubin 0.5 MG/DL (0.2-1.0) Aspartate Amino Transf (AST/SGOT) 13 U/L (15-37) L Alanine Aminotransferase (ALT/SGPT) 14 U/L (12-78) Alkaline Phosphatase 62 U/L (46-116) Total Protein 6.4 G/DL (6.4-8.2) Albumin 2.8 G/DL (3.4-5.0) L Globulin 3.6 g/dL Albumin/Globulin Ratio 0.8 (1.0-2.7) L Plan Problems: (1) Abdominal pain Assessment & Plan: 68M s/p recovering abd pain labs noted exam as above -BILATERAL NEPHROSTOMY TUBES PLACED LT: LOCKING 8FT PIGTAIL CATHETER RT: NON LOCKING 8FT PIGTAIL CATHETER -will monitor abd exam -npo - okay for ice chips -iv fluids -dressings -drain care -nephrostomy tube care -abx -will follow with exam and recs thank you for allowing me to participate in patients care. (2) Prostate CA Giacomo Berrios Nov 01, 2018 08:44
[2018-11-01] MEDS: HYDROmorphone 1mg/ml Carpuject IVP PRN ×2 (08:45→20:30)
[2018-11-01] MEDS: Pantoprazole Inj IVP SCH (08:45)
[2018-11-01] MEDS: BuPROPion XL 150mg tab ORAL SCH (08:46)
[2018-11-01] MEDS: Nephrovite tab (Rena-Vite) ORAL SCH (08:46)
--- NOTE | 2018-11-01 10:01 | NUR ---
RD ASSESSMENT & RECOMMENDATIONS SEE CARE ACTIVITY FOR COMPLETE ASSESSMENT DAILY ESTIMATED NEEDS: Needs based on Surgery, 64kg 25-30 kcals/kg 6230-1970 total kcals 1-2 g protein/kg 64-128 g total protein 25-30 mL/kg 3861-4427 total fluid mLs NUTRITION DIAGNOSIS: Increased kcal/prot intake needs R/T surgery as evidenced by h/o prostate CA, s/p prostatectomy, open, with resection of rectum and repositioning of bladder/ureter, NPO at this time. CURRENT DIET:NPO PO DIET RECOMMENDATIONS: Diet per surgeon -> REGULAR + SNACKS BID ADDITIONAL RECOMMENDATIONS: * Standing wt as able for accurate CBW * Monitor NPO status * Monitor PO intake closely once diet initiates
--- NOTE | 2018-11-01 10:42 | NUR ---
NURSE NOTES: Patient is in bed awake and able to verbalize needs. Stable. Denies pain or SOB. Patient worked with physical therapy, tolerated well. Patient is in bed in locked and lowest position with call light within reach. All safety measures provided. Will continue to monitor.
[2018-11-01 12:00] VITALS: BP 118/72
--- NOTE | 2018-11-01 12:09 | NUR ---
NURSE NOTES: Dr. Peralta aware of lab results and pulse 110. No new orders at this time.
--- NOTE | 2018-11-01 12:12 | NUR ---
NURSE NOTES: Patient is stable. Denies pain. Breathing is even and unlabored.
[2018-11-01 16:00] VITALS: BP 133/71
--- NOTE | 2018-11-01 19:24 | NUR ---
HAND-OFF: Report given to OHLLY Gaytan. Patient is stable.
--- NOTE | 2018-11-01 19:27 | NUR ---
Nurse's Notes: received patient awake, alert and oriented; eating jello; tolerating clears; denies N/V but admits to 3/10 abdominal pain and per patient feels like he needs to have a bowel movement; educated patient on safety and advised him to call for assistance. abdominal dressing still CDI; left nephrostomy with small amount of cody colored output; right nephrostomy also with small amount of bloody drainage, blood clots noted; no measurable output from the ILDIA drain on the right flank; duong bag also without measurable output; bloody fluid noted. plan of care to be continued; close monitoring to be done this shift.
[2018-11-01 19:55] VITALS: BP 120/76
[2018-11-02] VITALS (11 sets, daily range): BP systolic 128–160; BP diastolic 80–99
[2018-11-02] MEDS: D5 1/2NS 1,000 ML IV SCH ×2 (02:55→05:34)
[2018-11-02] MEDS: Piperacillin/Tazobactam 3.375 GM in NS 110 ML IVPB SCH ×3 (05:34→21:30)
[2018-11-02 06:38] LABS: HEMATOCRIT 21.5 % (42.0-52.0); HEMOGLOBIN 7.1 G/DL (14.2-18.0); MEAN CORPUSCULAR VOLUME 98 FL (80-99); PLATELET COUNT 186 K/UL (150-450); WHITE BLOOD COUNT 8.7 K/UL (4.8-10.8)
--- NOTE | 2018-11-02 06:49 | NUR ---
nurse's notes: no significant changes noted this shift; tolerated clear liquids; no N/V but admits to some abdominal pain; dilaudid given x 1 as ordered with good results; patient having the feeling of going to the bathroom but no BM noted. abdominal dressing remain CDI. noted the following: right nephrostomy with small amount (30ml) of tea-colored output, blood clots still noted in drainage bag; left nephrostomy with 450 mls also of tea-colored output; LIDIA drain with 25 mls of sanguineous output; duong bag with 300 mls of thick hematuria. no other complaints received. will continue to monitor.
[2018-11-02 07:14] LABS: ANION GAP 10 mmol/L (5-15); BLOOD UREA NITROGEN 10 mg/dL (7-18); CALCIUM 8.9 MG/DL (8.5-10.1); CARBON DIOXIDE 25 MMOL/L (21-32); CHLORIDE 108 MMOL/L (98-107); CREATININE 1.1 MG/DL (0.55-1.30); POTASSIUM 3.7 MMOL/L (3.5-5.1); SODIUM 142 MMOL/L (136-145)
--- NOTE | 2018-11-02 07:30 | NUR ---
NURSE NOTES: Patient lying in bed awake. No complain of pain or distress at this time. Surgical dressing intact and dry. IV dressing intact and dry. Nephrostomy bag, LIDIA and Mesa catheter patent and draining well. Bed lowest position. Call light within reach. Will continue to monitor.
--- NOTE | 2018-11-02 07:43 | Pulmonology Progress Note ---
Assessment/Plan Assessment/Plan IMPRESSION: This is a 68-year-old male with underlyin. Psychiatric disorder. 2. History of colon CA. 3. Prostate CA. 4. S/p prostatectomy, open, with resection of rectum and repositioning of bladder/ureter DISCUSSION: Seen by renal S/p bilateral perc nephrostomies Will follow Discussed with urology Lab results noted Creatinine now normal Hgb 7.1; will transfuse Subjective Interval Events: None new Constitutional: Reports: no symptoms HEENT: Repors: no symptoms Respiratory: Reports: no symptoms Cardiovascular: Reports: no symptoms Allergies: Coded Allergies: No Known Allergies (Unverified , 10/28/18) Objective Last 24 Hour Vital Signs Date Time Temp Pulse Resp B/P (MAP) Pulse Ox O2 Delivery O2 Flow Rate FiO2 11/02/18 04:00 98.9 100 18 129/82 (98) 98 11/02/18 00:09 99.2 112 18 146/87 (106) 97 11/01/18 21:00 Room Air 11/01/18 19:55 98.3 108 18 120/76 (91) 99 11/01/18 16:00 98.4 110 19 133/71 (91) 97 11/01/18 12:00 99.1 110 16 118/72 (87) 95 11/01/18 10:51 Room Air 11/01/18 08:00 97.3 100 17 138/70 (92) 98 Intake and Output 11/01/18 11/02/18 18:59 06:59 Intake Total 300 ml 735.0 ml Output Total 710 ml 705 ml Balance -410 ml 30.0 ml Intake Oral 300 ml 400 ml IV Total 335.0 ml Output Urine Total 60 ml 300 ml Drainage Total 650 ml 405 ml General Appearance: no acute distress HEENT: normocephalic Respiratory/Chest: chest wall non-tender Cardiovascular: normal peripheral pulses, normal rate Laboratory Tests 11/02/18 04:40: White Blood Count 8.7, Red Blood Count 2.20L, Hemoglobin 7.1L, Hematocrit 21.5L , Mean Corpuscular Volume 98, Mean Corpuscular Hemoglobin 32.5H, Mean Corpuscular Hemoglobin Concent 33.2, Red Cell Distribution Width 11.0L, Platelet Count 186, Mean Platelet Volume 8.1, Neutrophils (%) (Auto) , Lymphocytes (%) (Auto) , Monocytes (%) (Auto) , Eosinophils (%) (Auto) , Basophils (%) (Auto) , Neutrophils % (Manual) [Pending], Lymphocytes % (Manual) [Pending], Platelet Estimate [Pending], Platelet Morphology [Pending], Sodium Level 142, Potassium Level 3.7, Chloride Level 108H, Carbon Dioxide Level 25, Anion Gap 10, Blood Urea Nitrogen 10, Creatinine 1.1, Estimat Glomerular Filtration Rate > 60, Glucose Level 112H, Calcium Level 8.9 Current Medications Medications (Trade) Dose Ordered Sig/Juliano Route PRN Reason Start Time Stop Time Status Last Admin Dose Admin Acetaminophen (Tylenol) 650 mg Q4H PRN ORAL T>100.5 10/29/18 15:15 11/28/18 15:14 Bupropion HCl (Wellbutrin XL) 300 mg DAILY ORAL 10/29/18 09:00 11/28/18 08:59 11/01/18 08:46 Dextrose/Sodium Chloride 1,000 ml @ 75 mls/hr [id number] IV 10/30/18 08:15 11/29/18 08:14 11/02/18 05:34 Hydromorphone HCl (Dilaudid) 1 mg Q3H PRN IVP Severe Pain (Pain Scale 7-10) 10/29/18 15:15 11/05/18 11:59 11/01/18 20:30 Mirtazapine (Remeron) 30 mg QHS ORAL 10/28/18 21:00 11/27/18 20:59 11/01/18 20:27 Ondansetron HCl (Zofran) 4 mg Q6H PRN IVP Nausea & Vomiting 10/29/18 15:30 11/28/18 15:29 Pantoprazole (Protonix) 40 mg DAILY IVP 10/30/18 11:00 11/29/18 10:59 11/01/18 08:45 Piperacillin Sod/ Tazobactam Sod 3.375 gm/Sodium Chloride 110 ml @ 27.5 mls/hr EVERY 8 HOURS IVPB 10/31/18 14:00 11/05/18 13:59 11/02/18 05:34 Temazepam (Restoril) 7.5 mg HSPRN PRN ORAL Insomnia 10/29/18 21:00 11/05/18 20:59 11/01/18 21:29 Vitamin B Complex/ Vit C/Folic Acid (Nephrovite) 1 tab DAILY ORAL 10/31/18 09:00 11/30/18 08:59 11/01/18 08:46 Mt Peralta MD Nov 02, 2018 07:42
[2018-11-02] MEDS: Nephrovite tab (Rena-Vite) ORAL SCH (08:34)
[2018-11-02] MEDS: Pantoprazole Inj IVP SCH (08:34)
[2018-11-02] MEDS: BuPROPion XL 150mg tab ORAL SCH (08:34)
[2018-11-02] MEDS ORDERED: D5 1/2NS 1000ml IV ONE (09:38)
--- NOTE | 2018-11-02 11:15 | NUR ---
NURSE NOTES: Blood transfusion started. Vital signs stable. Will continue to monitor.
--- NOTE | 2018-11-02 11:30 | NUR ---
NURSE NOTES: Transfusion on going. No signs and symptoms of adverse reaction. Vital signs stable. Will continue to monitor.
--- NOTE | 2018-11-02 13:40 | Surgery Progress Note ---
Surgery Progress Note Subjective Additional Comments labs ntoed. transfuse prbc passing loose stool drains improved and serous now midline wound improved c/d/i abd distention improved Objective Last 24 Hour Vital Signs Date Time Temp Pulse Resp B/P (MAP) Pulse Ox O2 Delivery O2 Flow Rate FiO2 11/02/18 11:30 98.0 96 18 142/82 (102) 99 11/02/18 11:15 97.5 91 18 144/80 (101) 99 11/02/18 09:00 Room Air 11/02/18 08:00 98.2 101 18 128/80 (96) 97 11/02/18 04:00 98.9 100 18 129/82 (98) 98 11/02/18 00:09 99.2 112 18 146/87 (106) 97 11/01/18 21:00 Room Air 11/01/18 19:55 98.3 108 18 120/76 (91) 99 11/01/18 16:00 98.4 110 19 133/71 (91) 97 I&O Intake and Output 11/01/18 11/02/18 18:59 06:59 Intake Total 300 ml 735.0 ml Output Total 710 ml 705 ml Balance -410 ml 30.0 ml Intake Oral 300 ml 400 ml IV Total 335.0 ml Output Urine Total 60 ml 300 ml Drainage Total 650 ml 405 ml Dressing: dry Wound: clean Drains: other Cardiovascular: RSR Respiratory: clear Abdomen: soft, distended, non-tender, decreased bowel sounds Extremities: no cyanosis Laboratory Tests Test 11/02/18 04:40 White Blood Count 8.7 K/UL (4.8-10.8) Red Blood Count 2.20 M/UL (4.70-6.10) L Hemoglobin 7.1 G/DL (14.2-18.0) L Hematocrit 21.5 % (42.0-52.0) L Mean Corpuscular Volume 98 FL (80-99) Mean Corpuscular Hemoglobin 32.5 PG (27.0-31.0) H Mean Corpuscular Hemoglobin Concent 33.2 G/DL (32.0-36.0) Red Cell Distribution Width 11.0 % (11.6-14.8) L Platelet Count 186 K/UL (150-450) Mean Platelet Volume 8.1 FL (6.5-10.1) Neutrophils (%) (Auto) % (45.0-75.0) Lymphocytes (%) (Auto) % (20.0-45.0) Monocytes (%) (Auto) % (1.0-10.0) Eosinophils (%) (Auto) % (0.0-3.0) Basophils (%) (Auto) % (0.0-2.0) Differential Total Cells Counted 100 Neutrophils % (Manual) 81 % (45-75) H Lymphocytes % (Manual) 12 % (20-45) L Monocytes % (Manual) 3 % (1-10) Eosinophils % (Manual) 4 % (0-3) H Basophils % (Manual) 0 % (0-2) Band Neutrophils 0 % (0-8) Platelet Estimate Adequate Platelet Morphology Normal Hypochromasia 1+ Sodium Level 142 MMOL/L (136-145) Potassium Level 3.7 MMOL/L (3.5-5.1) Chloride Level 108 MMOL/L (98-107) H Carbon Dioxide Level 25 MMOL/L (21-32) Anion Gap 10 mmol/L (5-15) Blood Urea Nitrogen 10 mg/dL (7-18) Creatinine 1.1 MG/DL (0.55-1.30) Estimat Glomerular Filtration Rate > 60 mL/min (>60) Glucose Level 112 MG/DL (74-106) H Calcium Level 8.9 MG/DL (8.5-10.1) Plan Problems: (1) Abdominal pain Assessment & Plan: 68M s/p recovering abd pain labs noted exam as above -BILATERAL NEPHROSTOMY TUBES PLACED LT: LOCKING 8FT PIGTAIL CATHETER RT: NON LOCKING 8FT PIGTAIL CATHETER -will monitor abd exam -clears prbc -iv fluids -dressings -drain care -nephrostomy tube care -abx -will follow with exam and recs thank you for allowing me to participate in patients care. (2) Prostate CA Giacomo Berrios Nov 02, 2018 13:40
[2018-11-02] MEDS: HYDROmorphone 1mg/ml Carpuject IVP PRN ×2 (14:04→17:03)
--- NOTE | 2018-11-02 14:20 | NUR ---
NURSE NOTES: Patient complained discharge on his buttock. Checked buttock and found thick clear jelly kind texture discharge. Notified regarding discharge. No new order at this time and monitor for now. Will continue to monitor.
[2018-11-02] MEDS ORDERED: NS 275ml ONE (15:53)
[2018-11-02] MEDS ORDERED: Tubing Blood Filter IV ONE (15:53)
--- NOTE | 2018-11-02 17:05 | NUR ---
NURSE NOTES: Patient complained right side abdominal pain and abdomen distended. Notified and no new order at this time. Will continue to monitor. Pain medication given as ordered.
--- NOTE | 2018-11-02 18:45 | NUR ---
NURSE NOTES: Started blood transfusion in stable condition. Vital signs stable. Will continue to monitor.
--- NOTE | 2018-11-02 19:00 | NUR ---
NURSE NOTES: Blood transfusion on going. No adverse reaction. Vital signs stable. Will continue to monitor.
--- NOTE | 2018-11-02 19:30 | NUR ---
HAND-OFF: Report given to Lucila BARRERA. Patient in stable condition.
--- NOTE | 2018-11-02 19:35 | NUR ---
nurse's notes: received patient awake, alert and oriented; watching tv; denies any pain or distress; receiving 2nd bag of prbc; tolerating well; vss; no visible reaction to transfusion at this time; still with bilateral nephrostomies, 1 alvino with serosanguineous output; duong still with hematuria; low bowel sounds noted on all quadrants; lungs clear; plan of care reviewed with patient. will continue to monitor.
[2018-11-03 04:00] VITALS: BP 158/91
[2018-11-03] MEDS: D5 1/2NS 1,000 ML IV SCH (05:35)
[2018-11-03] MEDS: Piperacillin/Tazobactam 3.375 GM in NS 110 ML IVPB SCH ×3 (05:36→22:14)
--- NOTE | 2018-11-03 06:10 | NUR ---
nurse's notes: no incidents of falls, injuries or trauma or new skin issues noted this shift; no complaints of pain or any distress. patient accidentally pulled out iv access, removed abdominal dressing while sleeping; per patient he was having a bad dream; new iv access on the left AC G#20; partial bed linen change done. complete i&o in chart. no other significant changes reported except for the left nephrostomy output is now greenish in color and output for alvino drain has increased from day shift's output. will continue to monitor.
[2018-11-03] MEDS: HYDROmorphone 1mg/ml Carpuject IVP PRN ×2 (06:44→17:45)
[2018-11-03 07:06] LABS: BASOPHILS % (AUTO) 1.5 % (0.0-2.0); EOSINOPHILS % (AUTO) 3.6 % (0.0-3.0); HEMATOCRIT 31.3 % (42.0-52.0); HEMOGLOBIN 10.4 G/DL (14.2-18.0); LYMPHOCYTES % (AUTO) 12.6 % (20.0-45.0); MEAN CORPUSCULAR VOLUME 93 FL (80-99); MONOCYTES % (AUTO) 9.6 % (1.0-10.0); NEUTROPHILS % (AUTO) 72.6 % (45.0-75.0); PLATELET COUNT 218 K/UL (150-450); RED BLOOD COUNT 3.35 M/UL (4.70-6.10); RED CELL DISTRIBUTION WIDTH 13.1 % (11.6-14.8); WHITE BLOOD COUNT 8.1 K/UL (4.8-10.8)
[2018-11-03 07:21] LABS: ANION GAP 11 mmol/L (5-15); BLOOD UREA NITROGEN 9 mg/dL (7-18); CALCIUM 9.2 MG/DL (8.5-10.1); CARBON DIOXIDE 24 MMOL/L (21-32); CHLORIDE 108 MMOL/L (98-107); CREATININE 1.2 MG/DL (0.55-1.30); SODIUM 143 MMOL/L (136-145)
--- NOTE | 2018-11-03 07:30 | NUR ---
NURSE NOTES: Patient is in bed awake and able to verbalize needs. Stable. Denies pain. LIDIA draining sanguinous output, right and left nephrostomy draining, Mesa in place draining and secured to leg. Will monitor output. Patient is in bed in locked and lowest position with call light within reach. WIll continue to monitor.
[2018-11-03 08:00] VITALS: BP 146/76
--- NOTE | 2018-11-03 08:44 | Nephrology Progress Note ---
Assessment/Plan Assessment/Plan: A/P 1. S/p prostatectomy, open, with resection of rectum and repositioning of bladder/ureter - per Urology 2. Hyperkalemia- corrected post PCNTs. Now hypokalemia being replaced 3. Acute kidney injury secondary to multifactorial ATN- obstruction/contrast- induced nephropathy/NSAIDS - resolved Subjective Date patient seen: Nov 03, 2018 Time patient seen: 08:40 ROS Limited/Unobtainable: No Allergies: Coded Allergies: No Known Allergies (Unverified , 10/28/18) Subjective Patient in no distress. No CP or SOB Objective Last 24 Hour Vital Signs Date Time Temp Pulse Resp B/P (MAP) Pulse Ox O2 Delivery O2 Flow Rate FiO2 11/03/18 04:00 99.3 91 18 158/91 (113) 97 11/02/18 23:45 99.8 101 17 146/91 (109) 95 11/02/18 21:00 Room Air 11/02/18 19:29 99.7 102 18 156/88 (110) 99 11/02/18 19:00 99.7 104 20 156/88 (110) 99 11/02/18 18:45 98.8 106 20 157/99 (118) 99 11/02/18 16:55 98 157/87 (110) 11/02/18 16:00 98.8 86 20 160/90 (113) 96 11/02/18 11:30 98.0 96 18 142/82 (102) 99 11/02/18 11:15 97.5 91 18 144/80 (101) 99 11/02/18 09:00 Room Air Intake and Output 11/02/18 11/03/18 19:00 07:00 Intake Total 715 ml 848.50 ml Output Total 930 ml 920 ml Balance -215 ml -71.50 ml Intake Oral 640 ml 240 ml IV Total 75 ml 608.50 ml Output Urine Total 400 ml 500 ml Drainage Total 530 ml 420 ml Laboratory Tests 11/03/18 05:00: White Blood Count 8.1, Red Blood Count 3.35L, Hemoglobin 10.4#L, Hematocrit 31.3 #L, Mean Corpuscular Volume 93, Mean Corpuscular Hemoglobin 30.9, Mean Corpuscular Hemoglobin Concent 33.1, Red Cell Distribution Width 13.1, Platelet Count 218, Mean Platelet Volume 7.5, Neutrophils (%) (Auto) 72.6, Lymphocytes (% ) (Auto) 12.6L, Monocytes (%) (Auto) 9.6, Eosinophils (%) (Auto) 3.6H, Basophils (%) (Auto) 1.5, Sodium Level 143, Potassium Level 3.0L, Chloride Level 108H, Carbon Dioxide Level 24, Anion Gap 11, Blood Urea Nitrogen 9, Creatinine 1.2, Estimat Glomerular Filtration Rate > 60, Glucose Level 100, Calcium Level 9.2 Height (Feet): 5 Height (Inches): 5.00 Weight (Pounds): 142 General Appearance: no apparent distress, alert EENT: normal ENT inspection Neck: normal alignment, supple Cardiovascular: normal rate, regular rhythm Respiratory/Chest: lungs clear, normal breath sounds Abdomen: non tender, soft Edema: no edema noted Arm (L), no edema noted Arm (R), no edema noted Leg (L), no edema noted Leg (R), no edema noted Pedal (L), no edema noted Pedal (R), no edema noted Generalized Sarath Briceño MD Nov 03, 2018 08:44
[2018-11-03] MEDS: BuPROPion XL 150mg tab ORAL SCH (08:47)
[2018-11-03] MEDS: Nephrovite tab (Rena-Vite) ORAL SCH (08:47)
[2018-11-03] MEDS: Pantoprazole Inj IVP SCH (08:47)
--- NOTE | 2018-11-03 09:40 | NUR ---
Social Service Note Received a call from P disease case manager Weston Augustin [phone], following up on SNF placement. No dc order at this time. CM aware of placement needs.
--- NOTE | 2018-11-03 09:54 | Pulmonology Progress Note ---
Assessment/Plan Assessment/Plan IMPRESSION: This is a 68-year-old male with underlyin. Psychiatric disorder. 2. History of colon CA. 3. Prostate CA. 4. S/p prostatectomy, open, with resection of rectum and repositioning of bladder/ureter DISCUSSION: Seen by renal S/p bilateral perc nephrostomies Will follow Discussed with urology Lab results noted Creatinine now normal Hgb 10 post transfusion Will discuss DC plans with urology Subjective Interval Events: Ambulating with PT/walker; transfused yesterday Constitutional: Reports: no symptoms HEENT: Repors: no symptoms Respiratory: Reports: no symptoms Cardiovascular: Reports: no symptoms Gastrointestinal/Abdominal: Reports: no symptoms Allergies: Coded Allergies: No Known Allergies (Unverified , 10/28/18) Objective Last 24 Hour Vital Signs Date Time Temp Pulse Resp B/P (MAP) Pulse Ox O2 Delivery O2 Flow Rate FiO2 11/03/18 04:00 99.3 91 18 158/91 (113) 97 11/02/18 23:45 99.8 101 17 146/91 (109) 95 11/02/18 21:00 Room Air 11/02/18 19:29 99.7 102 18 156/88 (110) 99 11/02/18 19:00 99.7 104 20 156/88 (110) 99 11/02/18 18:45 98.8 106 20 157/99 (118) 99 11/02/18 16:55 98 157/87 (110) 11/02/18 16:00 98.8 86 20 160/90 (113) 96 11/02/18 11:30 98.0 96 18 142/82 (102) 99 11/02/18 11:15 97.5 91 18 144/80 (101) 99 Intake and Output 11/02/18 11/03/18 18:59 06:59 Intake Total 640 ml 923.50 ml Output Total 930 ml 920 ml Balance -290 ml 3.50 ml Intake Oral 640 ml 240 ml IV Total 683.50 ml Output Urine Total 400 ml 500 ml Drainage Total 530 ml 420 ml General Appearance: no acute distress HEENT: normocephalic Respiratory/Chest: chest wall non-tender, lungs clear Cardiovascular: normal peripheral pulses, normal rate Abdomen: normal bowel sounds Laboratory Tests 11/03/18 05:00: White Blood Count 8.1, Red Blood Count 3.35L, Hemoglobin 10.4#L, Hematocrit 31.3 #L, Mean Corpuscular Volume 93, Mean Corpuscular Hemoglobin 30.9, Mean Corpuscular Hemoglobin Concent 33.1, Red Cell Distribution Width 13.1, Platelet Count 218, Mean Platelet Volume 7.5, Neutrophils (%) (Auto) 72.6, Lymphocytes (% ) (Auto) 12.6L, Monocytes (%) (Auto) 9.6, Eosinophils (%) (Auto) 3.6H, Basophils (%) (Auto) 1.5, Sodium Level 143, Potassium Level 3.0L, Chloride Level 108H, Carbon Dioxide Level 24, Anion Gap 11, Blood Urea Nitrogen 9, Creatinine 1.2, Estimat Glomerular Filtration Rate > 60, Glucose Level 100, Calcium Level 9.2 Current Medications Medications (Trade) Dose Ordered Sig/Juliano Route PRN Reason Start Time Stop Time Status Last Admin Dose Admin Acetaminophen (Tylenol) 650 mg Q4H PRN ORAL T>100.5 10/29/18 15:15 11/28/18 15:14 Bupropion HCl (Wellbutrin XL) 300 mg DAILY ORAL 10/29/18 09:00 11/28/18 08:59 11/03/18 08:47 Dextrose/Sodium Chloride 1,000 ml @ 75 mls/hr [id number] IV 10/30/18 08:15 11/29/18 08:14 11/02/18 05:34 Hydromorphone HCl (Dilaudid) 1 mg Q3H PRN IVP Severe Pain (Pain Scale 7-10) 10/29/18 15:15 11/05/18 11:59 11/03/18 06:44 Mirtazapine (Remeron) 30 mg QHS ORAL 10/28/18 21:00 11/27/18 20:59 11/02/18 20:17 Ondansetron HCl (Zofran) 4 mg Q6H PRN IVP Nausea & Vomiting 10/29/18 15:30 11/28/18 15:29 Pantoprazole (Protonix) 40 mg DAILY IVP 10/30/18 11:00 11/29/18 10:59 11/03/18 08:47 Piperacillin Sod/ Tazobactam Sod 3.375 gm/Sodium Chloride 110 ml @ 27.5 mls/hr EVERY 8 HOURS IVPB 10/31/18 14:00 11/05/18 13:59 11/03/18 05:36 Potassium Chloride (K-Dur) 20 meq DAILY ORAL 11/04/18 09:00 12/04/18 08:59 Potassium Chloride (K-Dur) 40 meq ONCE ORAL 11/03/18 09:00 11/03/18 10:00 11/03/18 08:47 Temazepam (Restoril) 7.5 mg HSPRN PRN ORAL Insomnia 10/29/18 21:00 11/05/18 20:59 11/02/18 20:16 Vitamin B Complex/ Vit C/Folic Acid (Nephrovite) 1 tab DAILY ORAL 10/31/18 09:00 11/30/18 08:59 11/03/18 08:47 Mt Peralta MD Nov 03, 2018 09:54
--- NOTE | 2018-11-03 10:00 | NUR ---
NURSE NOTES: Patient passed gas. No bowel movement. Abdomen is distended. MD aware. Will continue to walk with patient.
--- NOTE | 2018-11-03 10:01 | CDS Physician Query ---
Clarification is required for compliance, coding accuracy, and to reflect severity of illness for this patient Dear Dr. Mt Peralta Date: 11/03/2018 Magnetic Resonance Technologist/CDS Name: Linda Mckeon Clinical documentation states:68-year-old male...S/p prostatectomy, open, with resection of rectum and repositioning of bladder/ureter...Hgb 7.1; will transfuse Hb: 10/28 12.7, 10/29 8.5, 08/02 7.1, 11/03 10.4 Treatment: 2 units RBC transfusion on 11/02 Please respond to the following question: Is there a diagnosis specific to these symptoms or values? If so please state below. PHYSICIAN RESPONSE: [] Acute blood loss anemia [] Acute on chronic blood loss anemia [] Expected postoperative acute blood loss anemia [] Other: [] Clinically Undetermined Present on Admission: [] Yes [] No [] Clinically Undetermined Physician signature Date Please also document in your Progress Notes and/or Discharge Summary and indicate if the condition was present on admission. MTDD
--- NOTE | 2018-11-03 11:18 | Diagnostic Imaging Report ---
Indication: Abdominal pain Comparison: None Single view of the abdomen obtained Findings: Bowel gas pattern is nonspecific. No mass, ectopic calcifications, or abnormal gas collections are identified. Bilateral percutaneous nephrostomies demonstrated. Vertical skin patricia from the mid abdomen to the pelvis noted. Right double-J ureteral stent demonstrated. Surgical drain noted within the pelvis. The bones are unremarkable. Impression: No acute findings
[2018-11-03 12:00] VITALS: BP 141/83
--- NOTE | 2018-11-03 12:58 | Surgery Progress Note ---
Surgery Progress Note Subjective Additional Comments Patient seen and examined at bedside. States he is feeling well. No nausea vomiting fever chills. Tolerating clear liquid diet. Passing flatus. Had some drainage/discharge from his rectum. Tubes and drains in place. Output is decreasing from drain. Labs noted. Patient states he is otherwise doing well Objective Last 24 Hour Vital Signs Date Time Temp Pulse Resp B/P (MAP) Pulse Ox O2 Delivery O2 Flow Rate FiO2 11/03/18 12:00 98.6 92 21 141/83 (102) 100 11/03/18 09:00 Room Air 11/03/18 08:00 98.2 100 19 146/76 (99) 98 11/03/18 04:00 99.3 91 18 158/91 (113) 97 11/02/18 23:45 99.8 101 17 146/91 (109) 95 11/02/18 21:00 Room Air 11/02/18 19:29 99.7 102 18 156/88 (110) 99 11/02/18 19:00 99.7 104 20 156/88 (110) 99 11/02/18 18:45 98.8 106 20 157/99 (118) 99 11/02/18 16:55 98 157/87 (110) 11/02/18 16:00 98.8 86 20 160/90 (113) 96 I&O Intake and Output 11/02/18 11/03/18 18:59 06:59 Intake Total 640 ml 923.50 ml Output Total 930 ml 920 ml Balance -290 ml 3.50 ml Intake Oral 640 ml 240 ml IV Total 683.50 ml Output Urine Total 400 ml 500 ml Drainage Total 530 ml 420 ml Dressing: dry Wound: clean Drains: other Cardiovascular: RSR Respiratory: clear Abdomen: soft, distended, non-tender, present bowel sounds Extremities: no edema, no tenderness, no cyanosis Laboratory Tests Test 11/03/18 05:00 White Blood Count 8.1 K/UL (4.8-10.8) Red Blood Count 3.35 M/UL (4.70-6.10) L Hemoglobin 10.4 G/DL (14.2-18.0) #L Hematocrit 31.3 % (42.0-52.0) #L Mean Corpuscular Volume 93 FL (80-99) Mean Corpuscular Hemoglobin 30.9 PG (27.0-31.0) Mean Corpuscular Hemoglobin Concent 33.1 G/DL (32.0-36.0) Red Cell Distribution Width 13.1 % (11.6-14.8) Platelet Count 218 K/UL (150-450) Mean Platelet Volume 7.5 FL (6.5-10.1) Neutrophils (%) (Auto) 72.6 % (45.0-75.0) Lymphocytes (%) (Auto) 12.6 % (20.0-45.0) L Monocytes (%) (Auto) 9.6 % (1.0-10.0) Eosinophils (%) (Auto) 3.6 % (0.0-3.0) H Basophils (%) (Auto) 1.5 % (0.0-2.0) Sodium Level 143 MMOL/L (136-145) Potassium Level 3.0 MMOL/L (3.5-5.1) L Chloride Level 108 MMOL/L (98-107) H Carbon Dioxide Level 24 MMOL/L (21-32) Anion Gap 11 mmol/L (5-15) Blood Urea Nitrogen 9 mg/dL (7-18) Creatinine 1.2 MG/DL (0.55-1.30) Estimat Glomerular Filtration Rate > 60 mL/min (>60) Glucose Level 100 MG/DL (74-106) Calcium Level 9.2 MG/DL (8.5-10.1) Plan Problems: (1) Abdominal pain Assessment & Plan: 68M s/p recovering abd pain labs noted exam as above -BILATERAL NEPHROSTOMY TUBES PLACED LT: LOCKING 8FT PIGTAIL CATHETER RT: NON LOCKING 8FT PIGTAIL CATHETER -will monitor abd exam Advance diet -iv fluids -dressings -drain care -nephrostomy tube care -abx -will follow with exam and recs thank you for allowing me to participate in patients care. (2) Prostate CA Giacomo Berrios Nov 03, 2018 12:58
[2018-11-03 16:00] VITALS: BP 138/91
--- NOTE | 2018-11-03 19:06 | NUR ---
HAND-OFF: Report given to HOLLY Gaytan. Patient is stable.
--- NOTE | 2018-11-03 19:43 | NUR ---
nurse's notes: received patient awake, alert and oriented; watching tv; no s/s of distress but admits to 10/10 upper abdominal pain; refused offer for pain medication but would rather have a sleeping pill; vss; still working on his dinner; Memo drain with moderate amount of serosanguineous output; bilateral nephrostomies and duong no output as of this time. plan of care reviewed and discussed with patient; will continue to monitor.
[2018-11-03 19:55] VITALS: BP 134/76
--- NOTE | 2018-11-03 21:12 | NUR ---
CASE MANAGEMENT: REVIEW SI: PROSTATE CA OPEN PROSTATECTOMY 10/29 T 98.6 HR 105 RR 17 BP 158/91 SAT 97% ROOM AIR H/H 10.4/31.3 K 3.0 IS: K-DUR PO QD ZOSYN IV Q8HR NEPHROVITE PO QD PROTONIX IV QD DILAUDID IV Q3HR PRN MED/SURG STATUS DCP: PATIENT IS FROM HOME
[2018-11-04] VITALS (14 sets, daily range): BP systolic 137–176; BP diastolic 83–110
[2018-11-04] MEDS: HYDROmorphone 1mg/ml Carpuject IVP PRN ×3 (05:22→21:41)
[2018-11-04] MEDS: Piperacillin/Tazobactam 3.375 GM in NS 110 ML IVPB SCH ×3 (05:23→21:29)
--- NOTE | 2018-11-04 06:29 | NUR ---
nurse's notes: no significant changes noted this shift; alvino drain continues to drain large amount of serosanguineous fluid; right nephrostomy has zero output; left nephrostomy has small amount of greenish output; urine continues to be bloody; pain managed well with ordered medication with good effect. will continue to monitor.
[2018-11-04 06:36] LABS: BASOPHILS % (AUTO) 1.8 % (0.0-2.0); HEMATOCRIT 27.6 % (42.0-52.0); HEMOGLOBIN 9.1 G/DL (14.2-18.0); LYMPHOCYTES % (AUTO) 13.5 % (20.0-45.0); MEAN CORPUSCULAR VOLUME 94 FL (80-99); MONOCYTES % (AUTO) 11.6 % (1.0-10.0); NEUTROPHILS % (AUTO) 70.2 % (45.0-75.0); PLATELET COUNT 232 K/UL (150-450); RED BLOOD COUNT 2.93 M/UL (4.70-6.10); RED CELL DISTRIBUTION WIDTH 12.9 % (11.6-14.8)
[2018-11-04 07:02] LABS: ANION GAP 10 mmol/L (5-15); BLOOD UREA NITROGEN 8 mg/dL (7-18); CALCIUM 9.1 MG/DL (8.5-10.1); CARBON DIOXIDE 26 MMOL/L (21-32); CHLORIDE 108 MMOL/L (98-107); CREATININE 1.3 MG/DL (0.55-1.30); POTASSIUM 3.6 MMOL/L (3.5-5.1); SODIUM 144 MMOL/L (136-145)
--- NOTE | 2018-11-04 07:30 | NUR ---
NURSE NOTES: Patient is in bed awake and able to verbalize needs. Stable. Denies pain or SOB. Patient encouraged to use call light for assistance, verbalized understanding. LIDIA draining, output of 70 noted at this time, compressed bulb detention and will continue to monitor output. Pigtail 1 and 2 draining into bag, compressed as ordered. Mesa patent and draining. Patient is in bed in locked and lowest position with call light within reach. Will continue to monitor.
[2018-11-04] MEDS: BuPROPion XL 150mg tab ORAL SCH (08:39)
[2018-11-04] MEDS: Pantoprazole Inj IVP SCH (08:39)
[2018-11-04] MEDS: Nephrovite tab (Rena-Vite) ORAL SCH (08:39)
--- NOTE | 2018-11-04 09:41 | Nephrology Progress Note ---
Assessment/Plan Assessment/Plan: A/P 1. S/p prostatectomy, open, with resection of rectum and repositioning of bladder/ureter - per Urology 2. Hyperkalemia- corrected post PCNTs. 3. Acute kidney injury secondary to multifactorial ATN- obstruction/contrast- induced nephropathy/NSAIDS - Cr at 1.3 - restart IVFs. Avoid NSAIDS Subjective Date patient seen: Nov 04, 2018 Time patient seen: 09:40 ROS Limited/Unobtainable: No Allergies: Coded Allergies: No Known Allergies (Unverified , 10/28/18) Subjective Patient in no distress Objective Last 24 Hour Vital Signs Date Time Temp Pulse Resp B/P (MAP) Pulse Ox O2 Delivery O2 Flow Rate FiO2 11/04/18 08:25 Room Air 11/04/18 08:00 99.0 93 19 141/90 (107) 99 11/04/18 03:52 98.8 103 18 149/88 (108) 97 11/04/18 00:00 99.1 95 16 154/87 (109) 95 11/03/18 21:00 Room Air 11/03/18 19:55 98.6 105 17 134/76 (95) 94 11/03/18 16:00 97.6 96 19 138/91 (107) 96 11/03/18 12:00 98.6 92 21 141/83 (102) 100 Intake and Output 11/03/18 11/04/18 19:00 07:00 Intake Total 480 ml 437.5 ml Output Total 835 ml 830 ml Balance -355 ml -392.5 ml Intake Oral 480 ml 300 ml IV Total 137.5 ml Output Urine Total 200 ml 400 ml Drainage Total 635 ml 430 ml Laboratory Tests 11/04/18 04:45: White Blood Count 9.0, Red Blood Count 2.93L, Hemoglobin 9.1L, Hematocrit 27.6L , Mean Corpuscular Volume 94, Mean Corpuscular Hemoglobin 31.2H, Mean Corpuscular Hemoglobin Concent 33.1, Red Cell Distribution Width 12.9, Platelet Count 232, Mean Platelet Volume 8.2, Neutrophils (%) (Auto) 70.2, Lymphocytes (% ) (Auto) 13.5L, Monocytes (%) (Auto) 11.6H, Eosinophils (%) (Auto) 3.0, Basophils (%) (Auto) 1.8, Sodium Level 144, Potassium Level 3.6, Chloride Level 108H, Carbon Dioxide Level 26, Anion Gap 10, Blood Urea Nitrogen 8, Creatinine 1.3, Estimat Glomerular Filtration Rate > 60, Glucose Level 111H, Calcium Level 9.1 Height (Feet): 5 Height (Inches): 5.00 Weight (Pounds): 142 General Appearance: no apparent distress, alert EENT: normal ENT inspection Neck: normal alignment Cardiovascular: normal rate, regular rhythm Respiratory/Chest: lungs clear, normal breath sounds Abdomen: non tender Edema: no edema noted Arm (L), no edema noted Arm (R), no edema noted Leg (L), no edema noted Leg (R), no edema noted Pedal (L), no edema noted Pedal (R), no edema noted Generalized Sarath Briceño MD Nov 04, 2018 09:41
--- NOTE | 2018-11-04 13:42 | Pulmonology Progress Note ---
Assessment/Plan Assessment/Plan IMPRESSION: This is a 68-year-old male with underlyin. Psychiatric disorder. 2. History of colon CA. 3. Prostate CA. 4. S/p prostatectomy, open, with resection of rectum and repositioning of bladder/ureter DISCUSSION: Seen by renal S/p bilateral perc nephrostomies Perc nephrostomy adjustment per urology Will follow Discussed with urology Lab results noted Creatinine now normal Hgb 10 post transfusion; slight dip noted Subjective Interval Events: None new Constitutional: Reports: no symptoms HEENT: Repors: no symptoms Respiratory: Reports: no symptoms Cardiovascular: Reports: no symptoms Gastrointestinal/Abdominal: Reports: no symptoms Allergies: Coded Allergies: No Known Allergies (Unverified , 10/28/18) Objective Last 24 Hour Vital Signs Date Time Temp Pulse Resp B/P (MAP) Pulse Ox O2 Delivery O2 Flow Rate FiO2 11/04/18 12:00 98.2 94 21 138/93 (108) 99 11/04/18 08:25 Room Air 11/04/18 08:00 99.0 93 19 141/90 (107) 99 11/04/18 03:52 98.8 103 18 149/88 (108) 97 11/04/18 00:00 99.1 95 16 154/87 (109) 95 11/03/18 21:00 Room Air 11/03/18 19:55 98.6 105 17 134/76 (95) 94 11/03/18 16:00 97.6 96 19 138/91 (107) 96 Intake and Output 11/03/18 11/04/18 19:00 07:00 Intake Total 480 ml 437.5 ml Output Total 835 ml 830 ml Balance -355 ml -392.5 ml Intake Oral 480 ml 300 ml IV Total 137.5 ml Output Urine Total 200 ml 400 ml Drainage Total 635 ml 430 ml General Appearance: no acute distress HEENT: normocephalic Respiratory/Chest: chest wall non-tender, lungs clear Cardiovascular: normal peripheral pulses, normal rate Abdomen: normal bowel sounds Laboratory Tests 11/04/18 04:45: White Blood Count 9.0, Red Blood Count 2.93L, Hemoglobin 9.1L, Hematocrit 27.6L , Mean Corpuscular Volume 94, Mean Corpuscular Hemoglobin 31.2H, Mean Corpuscular Hemoglobin Concent 33.1, Red Cell Distribution Width 12.9, Platelet Count 232, Mean Platelet Volume 8.2, Neutrophils (%) (Auto) 70.2, Lymphocytes (% ) (Auto) 13.5L, Monocytes (%) (Auto) 11.6H, Eosinophils (%) (Auto) 3.0, Basophils (%) (Auto) 1.8, Sodium Level 144, Potassium Level 3.6, Chloride Level 108H, Carbon Dioxide Level 26, Anion Gap 10, Blood Urea Nitrogen 8, Creatinine 1.3, Estimat Glomerular Filtration Rate > 60, Glucose Level 111H, Calcium Level 9.1 Current Medications Medications (Trade) Dose Ordered Sig/Juliano Route PRN Reason Start Time Stop Time Status Last Admin Dose Admin Acetaminophen (Tylenol) 650 mg Q4H PRN ORAL T>100.5 10/29/18 15:15 11/28/18 15:14 Bupropion HCl (Wellbutrin XL) 300 mg DAILY ORAL 10/29/18 09:00 11/28/18 08:59 11/04/18 08:39 Hydromorphone HCl (Dilaudid) 1 mg Q3H PRN IVP Severe Pain (Pain Scale 7-10) 10/29/18 15:15 11/05/18 11:59 11/04/18 05:22 Mirtazapine (Remeron) 30 mg QHS ORAL 10/28/18 21:00 11/27/18 20:59 11/03/18 20:07 Ondansetron HCl (Zofran) 4 mg Q6H PRN IVP Nausea & Vomiting 10/29/18 15:30 11/28/18 15:29 Pantoprazole (Protonix) 40 mg DAILY IVP 10/30/18 11:00 11/29/18 10:59 11/04/18 08:39 Piperacillin Sod/ Tazobactam Sod 3.375 gm/Sodium Chloride 110 ml @ 27.5 mls/hr EVERY 8 HOURS IVPB 10/31/18 14:00 11/05/18 13:59 11/04/18 05:23 Potassium Chloride (K-Dur) 20 meq DAILY ORAL 11/04/18 09:00 12/04/18 08:59 11/04/18 08:39 Sodium Chloride 1,000 ml @ 75 mls/hr [id number] IV 9/24/19 10:00 12/04/18 09:59 11/04/18 10:03 Temazepam (Restoril) 7.5 mg HSPRN PRN ORAL Insomnia 10/29/18 21:00 11/05/18 20:59 11/03/18 20:07 Vitamin B Complex/ Vit C/Folic Acid (Nephrovite) 1 tab DAILY ORAL 10/31/18 09:00 11/30/18 08:59 11/04/18 08:39 Mt Peralta MD Nov 04, 2018 13:42
--- NOTE | 2018-11-04 13:50 | NUR ---
RD ASSESSMENT & RECOMMENDATIONS SEE CARE ACTIVITY FOR COMPLETE ASSESSMENT DAILY ESTIMATED NEEDS: Needs based on Surgery, 64kg 25-30 kcals/kg 2781-3608 total kcals 1-2 g protein/kg 64-128 g total protein 25-30 mL/kg 8296-1957 total fluid mLs NUTRITION DIAGNOSIS: Increased kcal/prot intake needs R/T surgery as evidenced by h/o prostate CA, s/p prostatectomy, open, with resection of rectum and repositioning of bladder/ureter, now on regular diet w/ poor to fair po intake. CURRENT DIET: now REGULAR PO DIET RECOMMENDATIONS: Diet per surgeon -> REGULAR + SNACKS BID ADDITIONAL RECOMMENDATIONS: * Standing wt as able for accurate CBW * Monitor NPO status-> now Regular diet w/ 25-50% intake * Monitor PO intake closely once diet initiates * Add ENSURE 1 bottle BID in b/w meals
--- NOTE | 2018-11-04 14:26 | NUR ---
NURSE NOTES: Pt taken to radiology via hospital bed.
--- NOTE | 2018-11-04 14:43 | Surgery Progress Note ---
Surgery Progress Note Subjective Additional Comments No acute events. Overall stable. States he feels well. Tolerating diet. Passing flatus but no bowel movement. KUB identified potential malpositioning of the right nephrostomy tube with plans for replacement today with advancement by radiology. Objective Last 24 Hour Vital Signs Date Time Temp Pulse Resp B/P (MAP) Pulse Ox O2 Delivery O2 Flow Rate FiO2 11/04/18 12:00 98.2 94 21 138/93 (108) 99 11/04/18 08:25 Room Air 11/04/18 08:00 99.0 93 19 141/90 (107) 99 11/04/18 03:52 98.8 103 18 149/88 (108) 97 11/04/18 00:00 99.1 95 16 154/87 (109) 95 11/03/18 21:00 Room Air 11/03/18 19:55 98.6 105 17 134/76 (95) 94 11/03/18 16:00 97.6 96 19 138/91 (107) 96 I&O Intake and Output 11/03/18 11/04/18 18:59 06:59 Intake Total 480 ml 437.5 ml Output Total 835 ml 830 ml Balance -355 ml -392.5 ml Intake Oral 480 ml 300 ml IV Total 137.5 ml Output Urine Total 200 ml 400 ml Drainage Total 635 ml 430 ml Dressing: dry Wound: clean Drains: other Cardiovascular: RSR Respiratory: clear Abdomen: soft, non-tender, non-distended, decreased bowel sounds Extremities: no edema, no tenderness, no cyanosis Laboratory Tests Test 11/04/18 04:45 White Blood Count 9.0 K/UL (4.8-10.8) Red Blood Count 2.93 M/UL (4.70-6.10) L Hemoglobin 9.1 G/DL (14.2-18.0) L Hematocrit 27.6 % (42.0-52.0) L Mean Corpuscular Volume 94 FL (80-99) Mean Corpuscular Hemoglobin 31.2 PG (27.0-31.0) H Mean Corpuscular Hemoglobin Concent 33.1 G/DL (32.0-36.0) Red Cell Distribution Width 12.9 % (11.6-14.8) Platelet Count 232 K/UL (150-450) Mean Platelet Volume 8.2 FL (6.5-10.1) Neutrophils (%) (Auto) 70.2 % (45.0-75.0) Lymphocytes (%) (Auto) 13.5 % (20.0-45.0) L Monocytes (%) (Auto) 11.6 % (1.0-10.0) H Eosinophils (%) (Auto) 3.0 % (0.0-3.0) Basophils (%) (Auto) 1.8 % (0.0-2.0) Sodium Level 144 MMOL/L (136-145) Potassium Level 3.6 MMOL/L (3.5-5.1) Chloride Level 108 MMOL/L (98-107) H Carbon Dioxide Level 26 MMOL/L (21-32) Anion Gap 10 mmol/L (5-15) Blood Urea Nitrogen 8 mg/dL (7-18) Creatinine 1.3 MG/DL (0.55-1.30) Estimat Glomerular Filtration Rate > 60 mL/min (>60) Glucose Level 111 MG/DL (74-106) H Calcium Level 9.1 MG/DL (8.5-10.1) Plan Problems: (1) Abdominal pain Assessment & Plan: 68M s/p recovering abd pain labs noted exam as above -BILATERAL NEPHROSTOMY TUBES PLACED LT: LOCKING 8FT PIGTAIL CATHETER RT: NON LOCKING 8FT PIGTAIL CATHETER KUB identified potential malpositioning of the right nephrostomy tube with plans for replacement today with advancement by radiology. -will monitor abd exam -diet as tolerated -iv fluids -dressings -drain care -nephrostomy tube care and reposition today -abx -will follow with exam and recs thank you for allowing me to participate in patients care. (2) Prostate CA Giacomo Berrios Nov 04, 2018 14:43
--- NOTE | 2018-11-04 15:29 | NUR ---
RADIOLOGY NOTE: RT SIDE NEPHROSTOMY EXCHANGED 8.5FT NON LOCKING PIGTAIL DRAINAGE.
[2018-11-04] MEDS ORDERED: Isovue-300 100ml vial INJ PRN (15:30)
[2018-11-04] MEDS ORDERED: Lidocaine 1% Plain 30 ml INJ PRN (15:33)
--- NOTE | 2018-11-04 16:08 | Diagnostic Imaging Report ---
Indication: Nonfunctioning right percutaneous nephrostomy. Comparison: None Findings: The card writer hand film demonstrates a right percutaneous nephrostomy catheter. A right double-J ureteral stent also noted in good position with the proximal portion curled in the renal pelvis adjacent to the tip of the percutaneous catheter. Informed consent for the procedure was obtained. The risks, benefits, and alternatives to the procedure were discussed with the patient. We were given verbal and written consent to proceed. The right flank was prepped and sterilely draped in the usual fashion. Upon removing the dressing, I notice the catheter was kinked proximally. Attempts at aspiration of the catheter were unsuccessful. A small amount of nonionic contrast was injected slowly without much force. Contrast was demonstrated within a nondilated right renal pelvis, but injection was met with some resistance and the flow was sluggish. The indwelling percutaneous nephrostomy catheter tip was in good position at the UPJ region. At the time of the initial catheter placement a few days ago, the catheter was left straight without forming the pigtail and was not locked. This was intentionally done so as to minimize the risk of pulling out the double-J ureteral stent when removing the percutaneous catheter. A 0.035 Glidewire was advanced into the catheter under fluoroscopic observation. With the wire tip well within the collecting system down to the lower right ureter, the percutaneous catheter was removed. A new 8.5 [place] multipurpose drainage catheter was advanced over the wire. The catheter was again left straight without a pigtail with the tip at about the level of the UPJ. Injection of contrast material was brisk with no resistance felt. Contrast opacification of the right renal pelvis and calyces demonstrated. The catheter was in good position and well secured onto the skin with sutures. There were no complications. The patient tolerated the procedure well. Catheter was continuing to drain well. Examination of the old percutaneous catheter that was removed showed that multiple sideholes were obstructed with blood/debris. This along with the fact that the proximal portion of the catheter was kinked likely accounted for the non-drainage. Total fluoroscopic time 388 seconds. 18 fluoroscopic images obtained. IMPRESSION: Successful exchange of an obstructed right percutaneous nephrostomy catheter for a new 8.5 [place] catheter, now draining well.
--- NOTE | 2018-11-04 17:38 | NUR ---
NURSE NOTES: Care taken over for pt report obtained current plan will be followed
--- NOTE | 2018-11-04 17:41 | NUR ---
HAND-OFF: Report given to Lenore BARRERA. patient is stable.
--- NOTE | 2018-11-04 18:59 | NUR ---
NURSE NOTES: Mesa catheter output 75cc and sanguinous. bilateral urostomy drained 50 each. Ride side serosanguineous . LIDIA drain 80 cc , pt had a BM . Escorted to restroom, freshened up while in restroom , Mesa care given . Pt currently comfortable . Denies pain, . Call light well in reach
--- NOTE | 2018-11-04 19:31 | NUR ---
HAND-OFF: Report given to Bubba BARRERA. made aware of serousanguinous output to rt urostomy, sanguinous output to f/c, alvino drain output 80cc. Pt assisted to restroom with walker
--- NOTE | 2018-11-04 20:08 | NUR ---
NURSE NOTES: Received report from HOLLY Grover. Patient is in bathroom. Mesa catheter is draining sanguinous urine. Right urostomy is draining serous light green fluid. Left urostomy is draining serosanguineous fluid. Fluids are running to right forearm 20g IV 1/2NS at 75mlhr. IV site is c/d/i. No c/o of pain at this time. Will continue to monitor.
--- NOTE | 2018-11-04 20:45 | Progress Note ---
DATE: 11/04/2018 The patient was seen on 11/03/2018 and 11/04/2018. The patient is status post radical retropubic prostatectomy with right ureteral reimplant, right double-J stent placement. The patient underweight complex surgery with prostate removal and bladder reconstruction with resection and reimplantation of the right ureter with a double J-stent placement. We had difficulty during surgery to reapproximate bladder to the urethra because of the tumor infiltration into the rectum and the base of the bladder. With extreme effort, we brought bladder neck down, however, there was a leak that was left persistent, a LIDIA drain was placed into the abdomen and on the postoperative day #2, the patient had bilateral percutaneous placed just to make sure that there is no urine leaks. He is doing much better. He has passed gas and is on regular diet. His abdomen is not distended. The Mesa catheter started to drain more urine since this morning was 300 mL of slightly tinged urine. The right nephrostomy was not putting much since last night. LIDIA drain still has significant output, left nephrostomy is functioning. KB yesterday was done showed the nephrostomy in the kidney, but there is possible kink on the right side or need to be readjusted. I will speak with the radiologist today to see if they can readjust the right nephrostomy tube, make it work, so we could release the amount of drainage from the LIDIA drain, then we prepared for discharge. General Surgery, Dr. Berrios is following him for rectal closure during surgery and so far satisfied with his progress. His labs are reviewed and they are all normal. We will keep the patient in hospital for another 2 to 3 days to maximize his drainage from the Mesa catheter and minimize the drainage from the LIDIA drain. Then, he will be able to be transferred to the skilled facility. Mickey Obando M.D. DR: DEVAUGHN JOB#: [id number] CC:
[2018-11-05] VITALS: BP 143/86
--- NOTE | 2018-11-05 03:30 | Operative Note - Dictated ---
DATE OF OPERATION: 10/29/2018 OPERATING SURGEON: Gabino Pace M.D. BAND INSTRUMENT REPAIRER: Mickey Obando M.D. ANESTHESIA: General endotracheal. PROCEDURE PERFORMED: Repair of the rectal injury. BACKGROUND: The patient is a 68-year-old male with advanced prostate cancer, was taken to the operating room for radical prostatectomy by urological surgeon, Dr. Mickey Obando. During the dissection, the prostate was found to be very densely adherent to the rectal wall. In order to achieve clean margin, the tumor was carefully dissected off the rectal wall by Dr. Obando and during this dissection, it was found out that the tumor penetrates the rectal wall and involves part of the muscular layer of the rectum. I was called by Dr. Mickey Obando to perform the repair of the rectum to avoid infectious complications. DESCRIPTION OF PROCEDURE: I scrubbed at the time point where the prostate was already dissected off the rectum and I inspected the rectum when I found approximately 0.5 cm defect at the anterior wall of the rectum, approximately 15 cm from the anal verge. The full-thickness perforation was not confirmed, but the decision was made anyway to repair the defect and muscle of the rectum. Four interrupted 2-0 Vicryl sutures were placed to approximate the muscle and mucosa to close the defect. The second layer of running 2-0 Vicryl suture was placed. After that the integrity of repair was checked by rectal exam and I found that there is no residual defect. The rest of the procedure was performed by Dr. Mickey Obando and he will dictate his part separately. Gabino Pace M.D. DR: CONTRERAS JOB#: [id number] CC: LUX
[2018-11-05 04:00] VITALS: BP 126/79
[2018-11-05] MEDS: Piperacillin/Tazobactam 3.375 GM in NS 110 ML IVPB SCH (05:27)
[2018-11-05 05:42] LABS: ANION GAP 8 mmol/L (5-15); BLOOD UREA NITROGEN 7 mg/dL (7-18); CALCIUM 8.6 MG/DL (8.5-10.1); CARBON DIOXIDE 26 MMOL/L (21-32); CHLORIDE 111 MMOL/L (98-107); CREATININE 1.2 MG/DL (0.55-1.30); POTASSIUM 3.7 MMOL/L (3.5-5.1); SODIUM 145 MMOL/L (136-145)
[2018-11-05] MEDS: HYDROmorphone 1mg/ml Carpuject IVP PRN ×2 (07:54→15:10)
--- NOTE | 2018-11-05 07:59 | NUR ---
NURSE NOTES: Received report from HOLLY Mac. Patient A&Ox3-4. On room air, no signs of distress or labored breathing. IV intact, patent, and infusing IV fluids. Mesa catheter intact, patent and draining. Left and right urostomies draining. Complains of pain, will medicate per pain management order. Bed in lowest position with call light in reach. Will continue with plan of care.
[2018-11-05 08:00] VITALS: BP 140/96
--- NOTE | 2018-11-05 08:15 | Nephrology Progress Note ---
Assessment/Plan Assessment/Plan: A/P 1. S/p prostatectomy, open, with resection of rectum and repositioning of bladder/ureter - per Urology/surg 2. Hyperkalemia- corrected post PCNTs. 3. Acute kidney injury secondary to multifactorial ATN- obstruction/contrast- induced nephropathy/NSAIDS - Cr down to 1.2. Continue IVFs - Avoid NSAIDS Subjective Date patient seen: Nov 05, 2018 Time patient seen: 08:14 ROS Limited/Unobtainable: No Allergies: Coded Allergies: No Known Allergies (Unverified , 10/28/18) Subjective Patient in no distress, poor appetite Objective Last 24 Hour Vital Signs Date Time Temp Pulse Resp B/P (MAP) Pulse Ox O2 Delivery O2 Flow Rate FiO2 11/05/18 04:00 98.7 101 16 126/79 (95) 95 11/05/18 00:00 98.9 101 16 143/86 (105) 100 11/04/18 21:00 Room Air 11/04/18 20:00 99.2 100 17 137/83 (101) 97 11/04/18 16:00 98.0 98 22 147/94 (111) 99 11/04/18 15:10 108 18 153/95 (114) 98 11/04/18 15:05 106 18 162/101 (121) 98 11/04/18 15:00 106 18 165/103 (123) 97 11/04/18 14:55 104 18 170/100 (123) 97 11/04/18 14:50 101 18 176/110 (132) 96 11/04/18 14:45 101 18 171/105 (127) 97 11/04/18 14:40 102 18 163/105 (124) 97 11/04/18 14:16 100 18 11/04/18 12:00 98.2 94 21 138/93 (108) 99 11/04/18 08:25 Room Air Intake and Output 11/04/18 11/05/18 19:00 07:00 Intake Total 975 ml 1140 ml Output Total 1860 ml 820 ml Balance -885 ml 320 ml Intake Oral 300 ml 240 ml IV Total 675 ml 900 ml Output Urine Total 275 ml 425 ml Drainage Total 1585 ml 395 ml # Bowel Movements 1 Laboratory Tests 11/05/18 04:50: Sodium Level 145, Potassium Level 3.7, Chloride Level 111H, Carbon Dioxide Level 26, Anion Gap 8, Blood Urea Nitrogen 7, Creatinine 1.2, Estimat Glomerular Filtration Rate > 60, Glucose Level 98, Calcium Level 8.6 Height (Feet): 5 Height (Inches): 5.00 Weight (Pounds): 144 General Appearance: no apparent distress, alert EENT: normal ENT inspection Neck: normal alignment, supple Cardiovascular: normal rate, regular rhythm Respiratory/Chest: lungs clear, normal breath sounds Abdomen: non tender, soft Edema: no edema noted Arm (L), no edema noted Arm (R), no edema noted Leg (L), no edema noted Leg (R), no edema noted Pedal (L), no edema noted Pedal (R), no edema noted Generalized Sarath Briceño MD Nov 05, 2018 08:15
--- NOTE | 2018-11-05 09:27 | Pulmonology Progress Note ---
Assessment/Plan Assessment/Plan IMPRESSION: This is a 68-year-old male with underlyin. Psychiatric disorder. 2. History of colon CA. 3. Prostate CA. 4. S/p prostatectomy, open, with resection of rectum and repositioning of bladder/ureter DISCUSSION: Seen by renal S/p bilateral perc nephrostomies Perc nephrostomy adjustment per urology Will follow Discussed with urology Lab results noted Creatinine now normal Hgb 10 post transfusion; slight dip noted Subjective Interval Events: Abd distended; seen by urology Constitutional: Reports: no symptoms HEENT: Repors: no symptoms Respiratory: Reports: no symptoms Cardiovascular: Reports: no symptoms Gastrointestinal/Abdominal: Reports: no symptoms Allergies: Coded Allergies: No Known Allergies (Unverified , 10/28/18) Objective Last 24 Hour Vital Signs Date Time Temp Pulse Resp B/P (MAP) Pulse Ox O2 Delivery O2 Flow Rate FiO2 11/05/18 04:00 98.7 101 16 126/79 (95) 95 11/05/18 00:00 98.9 101 16 143/86 (105) 100 11/04/18 21:00 Room Air 11/04/18 20:00 99.2 100 17 137/83 (101) 97 11/04/18 16:00 98.0 98 22 147/94 (111) 99 11/04/18 15:10 108 18 153/95 (114) 98 11/04/18 15:05 106 18 162/101 (121) 98 11/04/18 15:00 106 18 165/103 (123) 97 11/04/18 14:55 104 18 170/100 (123) 97 11/04/18 14:50 101 18 176/110 (132) 96 11/04/18 14:45 101 18 171/105 (127) 97 11/04/18 14:40 102 18 163/105 (124) 97 11/04/18 14:16 100 18 11/04/18 12:00 98.2 94 21 138/93 (108) 99 Intake and Output 11/04/18 11/05/18 19:00 07:00 Intake Total 975 ml 1140 ml Output Total 1860 ml 820 ml Balance -885 ml 320 ml Intake Oral 300 ml 240 ml IV Total 675 ml 900 ml Output Urine Total 275 ml 425 ml Drainage Total 1585 ml 395 ml # Bowel Movements 1 General Appearance: no acute distress HEENT: normocephalic Respiratory/Chest: chest wall non-tender, lungs clear Cardiovascular: normal peripheral pulses, normal rate Abdomen: normal bowel sounds Laboratory Tests 11/05/18 04:50: Sodium Level 145, Potassium Level 3.7, Chloride Level 111H, Carbon Dioxide Level 26, Anion Gap 8, Blood Urea Nitrogen 7, Creatinine 1.2, Estimat Glomerular Filtration Rate > 60, Glucose Level 98, Calcium Level 8.6 Current Medications Medications (Trade) Dose Ordered Sig/Juliano Route PRN Reason Start Time Stop Time Status Last Admin Dose Admin Acetaminophen (Tylenol) 650 mg Q4H PRN ORAL T>100.5 10/29/18 15:15 11/28/18 15:14 Bupropion HCl (Wellbutrin XL) 300 mg DAILY ORAL 10/29/18 09:00 11/28/18 08:59 11/04/18 08:39 Hydromorphone HCl (Dilaudid) 1 mg Q3H PRN IVP Severe Pain (Pain Scale 7-10) 10/29/18 15:15 11/05/18 11:59 11/05/18 07:54 Mirtazapine (Remeron) 30 mg QHS ORAL 10/28/18 21:00 11/27/18 20:59 11/04/18 21:30 Ondansetron HCl (Zofran) 4 mg Q6H PRN IVP Nausea & Vomiting 10/29/18 15:30 11/28/18 15:29 Pantoprazole (Protonix) 40 mg DAILY ORAL 11/05/18 09:00 12/05/18 08:59 Piperacillin Sod/ Tazobactam Sod 3.375 gm/Sodium Chloride 110 ml @ 27.5 mls/hr EVERY 8 HOURS IVPB 10/31/18 14:00 11/05/18 13:59 11/05/18 05:27 Potassium Chloride (K-Dur) 20 meq DAILY ORAL 11/04/18 09:00 12/04/18 08:59 11/04/18 08:39 Sodium Chloride 1,000 ml @ 75 mls/hr [id number] IV 11/04/18 10:00 12/04/18 09:59 11/04/18 23:50 Temazepam (Restoril) 7.5 mg HSPRN PRN ORAL Insomnia 10/29/18 21:00 11/05/18 20:59 11/03/18 20:07 Vitamin B Complex/ Vit C/Folic Acid (Nephrovite) 1 tab DAILY ORAL 11/05/18 09:00 12/05/18 08:59 Mt Peralta MD Nov 05, 2018 09:27
[2018-11-05] MEDS: BuPROPion XL 150mg tab ORAL SCH (09:28)
[2018-11-05] MEDS: Nephrovite tab (Rena-Vite) ORAL SCH (09:28)
[2018-11-05 12:00] VITALS: BP 149/95
--- NOTE | 2018-11-05 14:58 | NUR ---
NURSE NOTES: Spoke to regarding pain medication and new order received. Order read back and carried out.
[2018-11-05 16:00] VITALS: BP 128/81
[2018-11-05] MEDS ORDERED: Tubing IV Secondary IV ONE (18:20)
--- NOTE | 2018-11-05 19:20 | NUR ---
HAND-OFF: Report given to HOLLY Luong.
--- NOTE | 2018-11-05 19:25 | NUR ---
NURSE NOTES: Received report from HOLLY Corcoran. Patient alert, oriented. No distress noted. No complaints of pain at this time. Bed in low position, locked, side rails up x2, call light within reach. Will continue to monitor.
--- NOTE | 2018-11-05 19:29 | NUR ---
CASE MANAGEMENT: REVIEW SI: PROSTATE CA OPEN PROSTATECTOMY 10/29 T 99.0 HR 109 RR 20 BP 149/95 SAT 97% ROOM AIR CHLORIDE 111 IS: K-DUR PO QD ZOSYN IV Q8HR NEPHROVITE PO QD PROTONIX IV QD DILAUDID IV Q3HR PRN MED/SURG STATUS DCP: PATIENT IS FROM HOME
[2018-11-05 20:00] VITALS: BP 140/78
--- NOTE | 2018-11-05 21:00 | NUR ---
NURSE NOTES: Patient alert, oriented. Left and right urostomies patent and draining, these dressing were reinforced earlier by physician, per AM nurse report. LIDIA to medium suction as ordered. Abdominal incision with patricia YUMIKO, intact. Mesa catheter draining bloody urine, patent. Denies nausea or vomiting. Patient ambulating to bathroom with walker. Will continue to monitor,
--- NOTE | 2018-11-05 21:32 | Surgery Progress Note ---
Surgery Progress Note Subjective Additional Comments tubes repositioned doing well toleragting diet had BM Objective Last 24 Hour Vital Signs Date Time Temp Pulse Resp B/P (MAP) Pulse Ox O2 Delivery O2 Flow Rate FiO2 11/05/18 16:00 99.0 106 18 128/81 (97) 97 11/05/18 12:00 98.7 109 20 149/95 (113) 97 11/05/18 09:00 Room Air 11/05/18 08:00 98.9 106 18 140/96 (111) 97 11/05/18 04:00 98.7 101 16 126/79 (95) 95 11/05/18 00:00 98.9 101 16 143/86 (105) 100 I&O Intake and Output 11/04/18 11/05/18 19:00 07:00 Intake Total 975 ml 1140 ml Output Total 1860 ml 820 ml Balance -885 ml 320 ml Intake Oral 300 ml 240 ml IV Total 675 ml 900 ml Output Urine Total 275 ml 425 ml Drainage Total 1585 ml 395 ml # Bowel Movements 1 Dressing: dry Wound: clean Drains: other Cardiovascular: RSR Respiratory: clear Abdomen: soft, non-tender, present bowel sounds Extremities: no cyanosis, other Laboratory Tests Test 11/05/18 04:50 Sodium Level 145 MMOL/L (136-145) Potassium Level 3.7 MMOL/L (3.5-5.1) Chloride Level 111 MMOL/L (98-107) H Carbon Dioxide Level 26 MMOL/L (21-32) Anion Gap 8 mmol/L (5-15) Blood Urea Nitrogen 7 mg/dL (7-18) Creatinine 1.2 MG/DL (0.55-1.30) Estimat Glomerular Filtration Rate > 60 mL/min (>60) Glucose Level 98 MG/DL (74-106) Calcium Level 8.6 MG/DL (8.5-10.1) Plan Problems: (1) Abdominal pain Assessment & Plan: 68M s/p recovering abd pain labs noted exam as above -BILATERAL NEPHROSTOMY TUBES PLACED LT: LOCKING 8FT PIGTAIL CATHETER RT: NON LOCKING 8FT PIGTAIL CATHETER KUB identified potential malpositioning of the right nephrostomy tube with plans for replacement with advancement by radiology. -will monitor abd exam -diet as tolerated -iv fluids -dressings -drain care -nephrostomy tube care and reposition done -abx -will follow with exam and recs thank you for allowing me to participate in patients care. (2) Prostate CA Giacomo Berrios Nov 05, 2018 21:32
[2018-11-06] VITALS: BP 144/82
[2018-11-06 04:00] VITALS: BP 140/94
[2018-11-06] MEDS: HYDROmorphone 1mg/ml Carpuject IVP PRN ×5 (04:09→23:12)
[2018-11-06 06:41] LABS: HEMATOCRIT 27.1 % (42.0-52.0); HEMOGLOBIN 8.8 G/DL (14.2-18.0); LYMPHOCYTES % (AUTO) 19.6 % (20.0-45.0); MEAN CORPUSCULAR VOLUME 96 FL (80-99); MONOCYTES % (AUTO) 6.5 % (1.0-10.0); NEUTROPHILS % (AUTO) 68.8 % (45.0-75.0); PLATELET COUNT 291 K/UL (150-450); RED BLOOD COUNT 2.82 M/UL (4.70-6.10); RED CELL DISTRIBUTION WIDTH 13.4 % (11.6-14.8); WHITE BLOOD COUNT 9.5 K/UL (4.8-10.8)
--- NOTE | 2018-11-06 06:48 | Pulmonology Progress Note ---
Assessment/Plan Assessment/Plan IMPRESSION: This is a 68-year-old male with underlyin. Psychiatric disorder. 2. History of colon CA. 3. Prostate CA. 4. S/p prostatectomy, open, with resection of rectum and repositioning of bladder/ureter DISCUSSION: Seen by renal S/p bilateral perc nephrostomies Perc nephrostomy replacement R sided yesterday Will follow Discussed with urology Lab results noted Subjective Interval Events: Labs pending this AM; s/p R nephrostomy tube excahnge Constitutional: Reports: no symptoms HEENT: Repors: no symptoms Respiratory: Reports: no symptoms Cardiovascular: Reports: no symptoms Gastrointestinal/Abdominal: Reports: no symptoms Allergies: Coded Allergies: No Known Allergies (Unverified , 10/28/18) Objective Last 24 Hour Vital Signs Date Time Temp Pulse Resp B/P (MAP) Pulse Ox O2 Delivery O2 Flow Rate FiO2 11/06/18 04:00 98.9 99 19 140/94 (109) 96 11/06/18 00:00 98.8 98 18 144/82 (102) 95 11/05/18 21:00 Room Air 11/05/18 20:00 98.4 100 19 140/78 (98) 96 11/05/18 16:00 99.0 106 18 128/81 (97) 97 11/05/18 12:00 98.7 109 20 149/95 (113) 97 11/05/18 09:00 Room Air 11/05/18 08:00 98.9 106 18 140/96 (111) 97 Intake and Output 11/05/18 11/06/18 18:59 06:59 Intake Total 375 ml Output Total 1460 ml 100 ml Balance -1085 ml -100 ml Intake Oral 300 ml IV Total 75 ml Output Urine Total 200 ml 100 ml Drainage Total 1260 ml # Voids 1 # Bowel Movements 4 1 General Appearance: no acute distress HEENT: normocephalic Respiratory/Chest: chest wall non-tender, lungs clear Cardiovascular: normal peripheral pulses, regular rhythm Abdomen: normal bowel sounds Laboratory Tests 11/06/18 04:45: White Blood Count [Pending], Red Blood Count [Pending], Hemoglobin [Pending], Hematocrit [Pending], Mean Corpuscular Volume [Pending], Mean Corpuscular Hemoglobin [Pending], Mean Corpuscular Hemoglobin Concent [Pending], Red Cell Distribution Width [Pending], Platelet Count [Pending], Mean Platelet Volume [ Pending], Neutrophils (%) (Auto) [Pending], Lymphocytes (%) (Auto) [Pending], Monocytes (%) (Auto) [Pending], Eosinophils (%) (Auto) [Pending], Basophils (%) (Auto) [Pending], Sodium Level [Pending], Potassium Level [Pending], Chloride Level [Pending], Carbon Dioxide Level [Pending], Blood Urea Nitrogen [Pending], Creatinine [Pending], Estimat Glomerular Filtration Rate [Pending], Glucose Level [Pending], Calcium Level [Pending] Current Medications Medications (Trade) Dose Ordered Sig/Juliano Route PRN Reason Start Time Stop Time Status Last Admin Dose Admin Acetaminophen (Tylenol) 650 mg Q4H PRN ORAL T>100.5 10/29/18 15:15 11/28/18 15:14 Bupropion HCl (Wellbutrin XL) 300 mg DAILY ORAL 10/29/18 09:00 11/28/18 08:59 11/05/18 09:28 Hydromorphone HCl (Dilaudid) 1 mg Q3H PRN IVP Severe Pain (Pain Scale 7-10) 11/05/18 15:00 11/12/18 14:59 11/06/18 04:09 Mirtazapine (Remeron) 30 mg QHS ORAL 10/28/18 21:00 11/27/18 20:59 11/05/18 21:06 Ondansetron HCl (Zofran) 4 mg Q6H PRN IVP Nausea & Vomiting 10/29/18 15:30 11/28/18 15:29 Pantoprazole (Protonix) 40 mg DAILY ORAL 11/05/18 09:00 12/05/18 08:59 11/05/18 09:28 Potassium Chloride (K-Dur) 20 meq DAILY ORAL 11/04/18 09:00 12/04/18 08:59 11/05/18 09:28 Vitamin B Complex/ Vit C/Folic Acid (Nephrovite) 1 tab DAILY ORAL 11/05/18 09:00 12/05/18 08:59 11/05/18 09:28 Mt Peralta MD Nov 06, 2018 06:48
[2018-11-06 06:52] LABS: ANION GAP 8 mmol/L (5-15); BLOOD UREA NITROGEN 11 mg/dL (7-18); CALCIUM 9.3 MG/DL (8.5-10.1); CARBON DIOXIDE 27 MMOL/L (21-32); CHLORIDE 110 MMOL/L (98-107); POTASSIUM 4.1 MMOL/L (3.5-5.1); SODIUM 145 MMOL/L (136-145)
--- NOTE | 2018-11-06 07:20 | NUR ---
HAND-OFF: Report given to HOLLY Cho.
--- NOTE | 2018-11-06 07:25 | NUR ---
NURSE NOTES: Patient lying in bed awake. Complain of pain 10/10 on abdomen area. Will administer pain medication as ordered. No bleeding or infection on surgical site. LIDIA, Nephrostomy bag and Mesa catheter patent and draining well. IV patent. Bed lowest position. Call light within reach. Will continue to monitor.
[2018-11-06 08:00] VITALS: BP 139/89
[2018-11-06] MEDS: BuPROPion XL 150mg tab ORAL SCH (08:26)
[2018-11-06] MEDS: Nephrovite tab (Rena-Vite) ORAL SCH (08:26)
--- NOTE | 2018-11-06 09:27 | Nephrology Progress Note ---
Assessment/Plan Assessment/Plan: A/P 1. S/p prostatectomy, open, with resection of rectum and repositioning of bladder/ureter - per Urology/surg 2. Hyperkalemia- corrected post PCNTs. 3. Acute kidney injury secondary to multifactorial ATN- obstruction/contrast- induced nephropathy/NSAIDS Resolved. Will sign off. Cr 1 Subjective Date patient seen: Nov 06, 2018 Time patient seen: 09:26 ROS Limited/Unobtainable: No Allergies: Coded Allergies: No Known Allergies (Unverified , 10/28/18) Subjective Patient in no distress Objective Last 24 Hour Vital Signs Date Time Temp Pulse Resp B/P (MAP) Pulse Ox O2 Delivery O2 Flow Rate FiO2 11/06/18 08:00 98.4 109 18 139/89 (106) 97 11/06/18 04:00 98.9 99 19 140/94 (109) 96 11/06/18 00:00 98.8 98 18 144/82 (102) 95 11/05/18 21:00 Room Air 11/05/18 20:00 98.4 100 19 140/78 (98) 96 11/05/18 16:00 99.0 106 18 128/81 (97) 97 11/05/18 12:00 98.7 109 20 149/95 (113) 97 Intake and Output 11/05/18 11/06/18 18:59 06:59 Intake Total 375 ml 240 ml Output Total 1460 ml 1275 ml Balance -1085 ml -1035 ml Intake Oral 300 ml 240 ml IV Total 75 ml Output Urine Total 200 ml 100 ml Drainage Total 1260 ml 1175 ml # Voids 1 # Bowel Movements 4 1 Laboratory Tests 11/06/18 04:45: White Blood Count 9.5, Red Blood Count 2.82L, Hemoglobin 8.8L, Hematocrit 27.1L , Mean Corpuscular Volume 96, Mean Corpuscular Hemoglobin 31.2H, Mean Corpuscular Hemoglobin Concent 32.4, Red Cell Distribution Width 13.4, Platelet Count 291, Mean Platelet Volume 7.3, Neutrophils (%) (Auto) 68.8, Lymphocytes (% ) (Auto) 19.6L, Monocytes (%) (Auto) 6.5, Eosinophils (%) (Auto) 4.0H, Basophils (%) (Auto) 1.0, Sodium Level 145, Potassium Level 4.1, Chloride Level 110H, Carbon Dioxide Level 27, Anion Gap 8, Blood Urea Nitrogen 11, Creatinine 1.0, Estimat Glomerular Filtration Rate > 60, Glucose Level 100, Calcium Level 9.3 Height (Feet): 5 Height (Inches): 5.00 Weight (Pounds): 144 General Appearance: no apparent distress EENT: normal ENT inspection Neck: normal alignment, supple Cardiovascular: normal rate, regular rhythm Respiratory/Chest: lungs clear, normal breath sounds Edema: no edema noted Arm (L), no edema noted Arm (R), no edema noted Leg (L), no edema noted Leg (R), no edema noted Pedal (L), no edema noted Pedal (R), no edema noted Generalized Sarath Briceño MD Nov 06, 2018 09:27
[2018-11-06 12:00] VITALS: BP 154/95
--- NOTE | 2018-11-06 12:08 | NUR ---
PT WEEKLY PROGRESS NOTE Patient demonstrating gradual improvement in functional mobility and endurance. Patient able to transfer in/OOB with SBA and able to ambulate 250 ft with CGA without assistive device. Patient will continue to benefit from skilled inpatient PT intervention to work on increasing gait stability, safety and endurance to improve level of functional mobility.
[2018-11-06 16:00] VITALS: BP 128/85
--- NOTE | 2018-11-06 16:15 | NUR ---
NURSE NOTES: Collected body fluid specimen from LIDIA and sent to lab.
--- NOTE | 2018-11-06 17:43 | Surgery Progress Note ---
Surgery Progress Note Subjective Symptoms: improved, tolerating diet, voiding well, passing flatus, pain decreased Objective Last 24 Hour Vital Signs Date Time Temp Pulse Resp B/P (MAP) Pulse Ox O2 Delivery O2 Flow Rate FiO2 11/06/18 16:00 99.0 102 18 128/85 (99) 97 11/06/18 12:00 98.0 98 20 154/95 (114) 99 11/06/18 09:00 Room Air 11/06/18 08:00 98.4 109 18 139/89 (106) 97 11/06/18 04:00 98.9 99 19 140/94 (109) 96 11/06/18 00:00 98.8 98 18 144/82 (102) 95 11/05/18 21:00 Room Air 11/05/18 20:00 98.4 100 19 140/78 (98) 96 I&O Intake and Output 11/05/18 11/06/18 19:00 07:00 Intake Total 300 ml 240 ml Output Total 1460 ml 1275 ml Balance -1160 ml -1035 ml Intake Oral 300 ml 240 ml Output Urine Total 200 ml 100 ml Drainage Total 1260 ml 1175 ml # Voids 1 # Bowel Movements 4 1 Dressing: dry Wound: clean Drains: other Cardiovascular: RSR Respiratory: clear Abdomen: soft, non-tender, present bowel sounds Extremities: no tenderness, no cyanosis Laboratory Tests Test 11/06/18 04:45 11/06/18 16:10 White Blood Count 9.5 K/UL (4.8-10.8) Red Blood Count 2.82 M/UL (4.70-6.10) L Hemoglobin 8.8 G/DL (14.2-18.0) L Hematocrit 27.1 % (42.0-52.0) L Mean Corpuscular Volume 96 FL (80-99) Mean Corpuscular Hemoglobin 31.2 PG (27.0-31.0) H Mean Corpuscular Hemoglobin Concent 32.4 G/DL (32.0-36.0) Red Cell Distribution Width 13.4 % (11.6-14.8) Platelet Count 291 K/UL (150-450) Mean Platelet Volume 7.3 FL (6.5-10.1) Neutrophils (%) (Auto) 68.8 % (45.0-75.0) Lymphocytes (%) (Auto) 19.6 % (20.0-45.0) L Monocytes (%) (Auto) 6.5 % (1.0-10.0) Eosinophils (%) (Auto) 4.0 % (0.0-3.0) H Basophils (%) (Auto) 1.0 % (0.0-2.0) Sodium Level 145 MMOL/L (136-145) Potassium Level 4.1 MMOL/L (3.5-5.1) Chloride Level 110 MMOL/L (98-107) H Carbon Dioxide Level 27 MMOL/L (21-32) Anion Gap 8 mmol/L (5-15) Blood Urea Nitrogen 11 mg/dL (7-18) Creatinine 1.0 MG/DL (0.55-1.30) Estimat Glomerular Filtration Rate > 60 mL/min (>60) Glucose Level 100 MG/DL (74-106) Calcium Level 9.3 MG/DL (8.5-10.1) Body Fluid Creatinine Pending Plan Problems: (1) Abdominal pain Assessment & Plan: 68M s/p recovering abd pain labs noted exam as above -BILATERAL NEPHROSTOMY TUBES PLACED LT: LOCKING 8FT PIGTAIL CATHETER RT: NON LOCKING 8FT PIGTAIL CATHETER KUB identified potential malpositioning of the right nephrostomy tube with plans for replacement with advancement by radiology. -will monitor abd exam -diet as tolerated -iv fluids -dressings -drain care -nephrostomy tube care and reposition done -abx -will follow with exam and recs thank you for allowing me to participate in patients care. (2) Prostate CA Giacomo Berrios Nov 06, 2018 17:43
--- NOTE | 2018-11-06 19:30 | NUR ---
HAND-OFF: Report given to Cherise BARRERA. Patient in stable condition.
--- NOTE | 2018-11-06 19:35 | NUR ---
NURSE NOTES: Received report from HOLLY Cho. Patient alert, oriented. Left and right urostomies patent and draining, LIDIA to medium suction as ordered. Abdominal incision with patricia YUMIKO, intact. Mesa catheter patent. No nausea or vomiting. Bed in low position, locked, side rails up x2, call light within reach. Will continue to monitor.
[2018-11-06 20:00] VITALS: BP 137/85
[2018-11-07] VITALS: BP 126/84
[2018-11-07 04:00] VITALS: BP 145/88
[2018-11-07 06:41] LABS: BASOPHILS % (AUTO) 1.8 % (0.0-2.0); HEMATOCRIT 26.5 % (42.0-52.0); HEMOGLOBIN 8.6 G/DL (14.2-18.0); LYMPHOCYTES % (AUTO) 18.1 % (20.0-45.0); MEAN CORPUSCULAR VOLUME 95 FL (80-99); MONOCYTES % (AUTO) 9.2 % (1.0-10.0); NEUTROPHILS % (AUTO) 66.9 % (45.0-75.0); PLATELET COUNT 324 K/UL (150-450); RED BLOOD COUNT 2.79 M/UL (4.70-6.10); WHITE BLOOD COUNT 9.8 K/UL (4.8-10.8)
[2018-11-07 06:58] LABS: ANION GAP 8 mmol/L (5-15); BLOOD UREA NITROGEN 12 mg/dL (7-18); CALCIUM 9.1 MG/DL (8.5-10.1); CARBON DIOXIDE 29 MMOL/L (21-32); CHLORIDE 106 MMOL/L (98-107); POTASSIUM 4.4 MMOL/L (3.5-5.1); SODIUM 142 MMOL/L (136-145)
--- NOTE | 2018-11-07 07:35 | NUR ---
HAND-OFF: Report given to HOLLY Bruno. Rounds done.
--- NOTE | 2018-11-07 07:45 | NUR ---
NURSE NOTES: Received report from HOLLY Luong. Rounding done with outgoing nurse. Pt a/o x 4, in bed. c/o abd. pain as 10/10. Pain medicine will be given as MD ordered. LIDIA drain bulb is compressed. Nephrostomy bag is in placed. Bed in lowest position, call light within reach. Will continue to monitor.
[2018-11-07 08:00] VITALS: BP 131/83
[2018-11-07] MEDS: BuPROPion XL 150mg tab ORAL SCH (08:24)
[2018-11-07] MEDS: HYDROmorphone 1mg/ml Carpuject IVP PRN ×3 (08:25→17:51)
[2018-11-07] MEDS: Nephrovite tab (Rena-Vite) ORAL SCH (08:25)
--- NOTE | 2018-11-07 09:11 | Pulmonology Progress Note ---
Assessment/Plan Assessment/Plan IMPRESSION: This is a 68-year-old male with underlyin. Psychiatric disorder. 2. History of colon CA. 3. Prostate CA. 4. S/p prostatectomy, open, with resection of rectum and repositioning of bladder/ureter DISCUSSION: Seen by renal S/p bilateral perc nephrostomies Perc nephrostomy replacement R sided Will follow Discussed with urology Lab results noted Subjective Interval Events: None new Constitutional: Reports: no symptoms HEENT: Repors: no symptoms Respiratory: Reports: no symptoms Cardiovascular: Reports: no symptoms Gastrointestinal/Abdominal: Reports: no symptoms Allergies: Coded Allergies: No Known Allergies (Unverified , 10/28/18) Objective Last 24 Hour Vital Signs Date Time Temp Pulse Resp B/P (MAP) Pulse Ox O2 Delivery O2 Flow Rate FiO2 11/07/18 08:00 98.4 73 18 131/83 (99) 98 11/07/18 04:00 98.8 99 18 145/88 (107) 99 11/07/18 00:00 98.2 103 18 126/84 (98) 97 11/06/18 21:00 Room Air 11/06/18 20:00 99.0 99 18 137/85 (102) 97 11/06/18 16:00 99.0 102 18 128/85 (99) 97 11/06/18 12:00 98.0 98 20 154/95 (114) 99 Intake and Output 11/06/18 11/07/18 18:59 06:59 Intake Total 400 ml 540 ml Output Total 1130 ml 1490 ml Balance -730 ml -950 ml Intake Oral 400 ml 540 ml Output Urine Total 300 ml 750 ml Drainage Total 830 ml 740 ml General Appearance: WD/WN HEENT: normocephalic Respiratory/Chest: chest wall non-tender, lungs clear Cardiovascular: normal peripheral pulses, normal rate Laboratory Tests 11/06/18 16:10: Body Fluid Creatinine [Pending] 11/07/18 05:20: White Blood Count 9.8, Red Blood Count 2.79L, Hemoglobin 8.6L, Hematocrit 26.5L , Mean Corpuscular Volume 95, Mean Corpuscular Hemoglobin 30.9, Mean Corpuscular Hemoglobin Concent 32.5, Red Cell Distribution Width 13.0, Platelet Count 324, Mean Platelet Volume 7.5, Neutrophils (%) (Auto) 66.9, Lymphocytes (% ) (Auto) 18.1L, Monocytes (%) (Auto) 9.2, Eosinophils (%) (Auto) 4.0H, Basophils (%) (Auto) 1.8, Sodium Level 142, Potassium Level 4.4, Chloride Level 106, Carbon Dioxide Level 29, Anion Gap 8, Blood Urea Nitrogen 12, Creatinine 1.0, Estimat Glomerular Filtration Rate > 60, Glucose Level 87, Calcium Level 9.1 Current Medications Medications (Trade) Dose Ordered Sig/Juliano Route PRN Reason Start Time Stop Time Status Last Admin Dose Admin Acetaminophen (Tylenol) 650 mg Q4H PRN ORAL T>100.5 10/29/18 15:15 11/28/18 15:14 Bupropion HCl (Wellbutrin XL) 300 mg DAILY ORAL 10/29/18 09:00 11/28/18 08:59 11/07/18 08:24 Hydromorphone HCl (Dilaudid) 1 mg Q3H PRN IVP Severe Pain (Pain Scale 7-10) 11/05/18 15:00 11/12/18 14:59 11/07/18 08:25 Mirtazapine (Remeron) 30 mg QHS ORAL 10/28/18 21:00 11/27/18 20:59 11/06/18 21:56 Ondansetron HCl (Zofran) 4 mg Q6H PRN IVP Nausea & Vomiting 10/29/18 15:30 11/28/18 15:29 Pantoprazole (Protonix) 40 mg DAILY ORAL 11/05/18 09:00 12/05/18 08:59 11/07/18 08:25 Potassium Chloride (K-Dur) 20 meq DAILY ORAL 11/04/18 09:00 12/04/18 08:59 11/07/18 08:25 Vitamin B Complex/ Vit C/Folic Acid (Nephrovite) 1 tab DAILY ORAL 11/05/18 09:00 12/05/18 08:59 11/07/18 08:25 Mt Peralta MD Nov 07, 2018 09:11
[2018-11-07 12:00] VITALS: BP 143/80
--- NOTE | 2018-11-07 12:42 | NUR ---
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 98.4 HR 73 RR 18 B/P 131/83 IS: K-DUR PO WELLBUTRIN PO REMERON PO MED/SURG STATUS
[2018-11-07 16:00] VITALS: BP 129/78
--- NOTE | 2018-11-07 16:55 | Surgery Progress Note ---
Surgery Progress Note Subjective Symptoms: improved, tolerating diet, voiding well, passing flatus, BM, pain decreased Objective Last 24 Hour Vital Signs Date Time Temp Pulse Resp B/P (MAP) Pulse Ox O2 Delivery O2 Flow Rate FiO2 11/07/18 16:00 98.6 102 20 129/78 (95) 96 11/07/18 12:00 98.0 68 16 143/80 (101) 95 11/07/18 09:00 Room Air 11/07/18 08:00 98.4 73 18 131/83 (99) 98 11/07/18 04:00 98.8 99 18 145/88 (107) 99 11/07/18 00:00 98.2 103 18 126/84 (98) 97 11/06/18 21:00 Room Air 11/06/18 20:00 99.0 99 18 137/85 (102) 97 I&O Intake and Output 11/06/18 11/07/18 19:00 07:00 Intake Total 400 ml 540 ml Output Total 1130 ml 1490 ml Balance -730 ml -950 ml Intake Oral 400 ml 540 ml Output Urine Total 300 ml 750 ml Drainage Total 830 ml 740 ml Dressing: dry Wound: clean Drains: other Cardiovascular: RSR Respiratory: clear Abdomen: soft, non-tender, present bowel sounds, non-distended Extremities: no edema, no tenderness, no cyanosis Laboratory Tests Test 11/07/18 05:20 White Blood Count 9.8 K/UL (4.8-10.8) Red Blood Count 2.79 M/UL (4.70-6.10) L Hemoglobin 8.6 G/DL (14.2-18.0) L Hematocrit 26.5 % (42.0-52.0) L Mean Corpuscular Volume 95 FL (80-99) Mean Corpuscular Hemoglobin 30.9 PG (27.0-31.0) Mean Corpuscular Hemoglobin Concent 32.5 G/DL (32.0-36.0) Red Cell Distribution Width 13.0 % (11.6-14.8) Platelet Count 324 K/UL (150-450) Mean Platelet Volume 7.5 FL (6.5-10.1) Neutrophils (%) (Auto) 66.9 % (45.0-75.0) Lymphocytes (%) (Auto) 18.1 % (20.0-45.0) L Monocytes (%) (Auto) 9.2 % (1.0-10.0) Eosinophils (%) (Auto) 4.0 % (0.0-3.0) H Basophils (%) (Auto) 1.8 % (0.0-2.0) Sodium Level 142 MMOL/L (136-145) Potassium Level 4.4 MMOL/L (3.5-5.1) Chloride Level 106 MMOL/L (98-107) Carbon Dioxide Level 29 MMOL/L (21-32) Anion Gap 8 mmol/L (5-15) Blood Urea Nitrogen 12 mg/dL (7-18) Creatinine 1.0 MG/DL (0.55-1.30) Estimat Glomerular Filtration Rate > 60 mL/min (>60) Glucose Level 87 MG/DL (74-106) Calcium Level 9.1 MG/DL (8.5-10.1) Plan Problems: (1) Abdominal pain Assessment & Plan: 68M s/p recovering abd pain labs noted exam as above -BILATERAL NEPHROSTOMY TUBES PLACED LT: LOCKING 8FT PIGTAIL CATHETER RT: NON LOCKING 8FT PIGTAIL CATHETER KUB identified potential malpositioning of the right nephrostomy tube with plans for replacement with advancement by radiology. -will monitor abd exam -diet as tolerated -iv fluids -dressings -drain care -nephrostomy tube care and reposition done -abx -will follow with exam and recs thank you for allowing me to participate in patients care. (2) Prostate CA Giacomo Berrios Nov 07, 2018 16:55
--- NOTE | 2018-11-07 19:32 | NUR ---
HAND-OFF: Report given to HOLLY Murdock. Pt is stable.
--- NOTE | 2018-11-07 19:33 | NUR ---
NURSE NOTES: Received report & pt from HOLLY Valadez. Pt lying in bed, a&ox3, in room air. No s/s of acute distress & c/o 9/10 pain. Will give PRN pain med when due & pt verbalized understanding. Mesa cath intact & draining to gravity. LIDIA drain to bulb suction. Nephrostomy tube x 2 intact with dressing C/D/I. surgical dressing with patricia C/D/I & open to air. IV site intact & S/L'd. Bed in lowest position, call light within reach. Will continue to monitor.
[2018-11-07 20:00] VITALS: BP 130/85
[2018-11-08] VITALS: BP 134/87
--- NOTE | 2018-11-08 07:22 | NUR ---
HAND-OFF: Report given to HOLLY James. Pt in stable condition. Rounds done.
--- NOTE | 2018-11-08 07:30 | NUR ---
NURSE NOTES: Pt lying in bed w/bed in lowest position and call light within reach. Pt A&Ox3-4, VSS, and in no apparent distress at this time. IV site intact/asymptomatic & H/L'd; patricia YUMIKO; and drains intact/patent. Will continue to monitor.
[2018-11-08 08:00] VITALS: BP 120/74
[2018-11-08] MEDS: Nephrovite tab (Rena-Vite) ORAL SCH (09:26)
[2018-11-08] MEDS: BuPROPion XL 150mg tab ORAL SCH (09:27)
[2018-11-08] MEDS: HYDROmorphone 1mg/ml Carpuject IVP PRN ×3 (09:27→21:37)
--- NOTE | 2018-11-08 10:03 | Pulmonology Progress Note ---
Assessment/Plan Assessment/Plan IMPRESSION: This is a 68-year-old male with underlyin. Psychiatric disorder. 2. History of colon CA. 3. Prostate CA. 4. S/p prostatectomy, open, with resection of rectum and repositioning of bladder/ureter DISCUSSION: Seen by renal S/p bilateral perc nephrostomies Perc nephrostomy replacement R sided Will follow Discussed with urology DC planning per urology and surgery Lab results noted Subjective Interval Events: Feeling well Constitutional: Reports: no symptoms HEENT: Repors: no symptoms Respiratory: Reports: no symptoms Cardiovascular: Reports: no symptoms Gastrointestinal/Abdominal: Reports: no symptoms Allergies: Coded Allergies: No Known Allergies (Unverified , 10/28/18) Objective Last 24 Hour Vital Signs Date Time Temp Pulse Resp B/P (MAP) Pulse Ox O2 Delivery O2 Flow Rate FiO2 11/08/18 08:00 99.4 101 18 120/74 (89) 95 11/08/18 00:00 99.5 93 18 134/87 (103) 94 11/07/18 21:00 Room Air 11/07/18 20:00 99.0 103 17 130/85 (100) 96 11/07/18 16:00 98.6 102 20 129/78 (95) 96 11/07/18 12:00 98.0 68 16 143/80 (101) 95 Intake and Output 11/07/18 11/08/18 18:59 06:59 Intake Total 400 ml 360 ml Output Total 1495 ml 1511 ml Balance -1095 ml -1151 ml Intake Oral 400 ml 360 ml Output Urine Total 600 ml 600 ml Drainage Total 895 ml 911 ml # Bowel Movements 1 General Appearance: no acute distress HEENT: normocephalic Respiratory/Chest: chest wall non-tender, lungs clear Cardiovascular: normal peripheral pulses, normal rate Current Medications Medications (Trade) Dose Ordered Sig/Juliano Route PRN Reason Start Time Stop Time Status Last Admin Dose Admin Acetaminophen (Tylenol) 650 mg Q4H PRN ORAL T>100.5 10/29/18 15:15 11/28/18 15:14 Bupropion HCl (Wellbutrin XL) 300 mg DAILY ORAL 10/29/18 09:00 11/28/18 08:59 11/08/18 09:27 Hydromorphone HCl (Dilaudid) 1 mg Q3H PRN IVP Severe Pain (Pain Scale 7-10) 11/05/18 15:00 11/12/18 14:59 11/08/18 09:27 Mirtazapine (Remeron) 30 mg QHS ORAL 10/28/18 21:00 11/27/18 20:59 11/07/18 21:22 Ondansetron HCl (Zofran) 4 mg Q6H PRN IVP Nausea & Vomiting 10/29/18 15:30 11/28/18 15:29 Pantoprazole (Protonix) 40 mg DAILY ORAL 11/05/18 09:00 12/05/18 08:59 11/08/18 09:26 Potassium Chloride (K-Dur) 20 meq DAILY ORAL 11/04/18 09:00 12/04/18 08:59 11/08/18 09:26 Vitamin B Complex/ Vit C/Folic Acid (Nephrovite) 1 tab DAILY ORAL 11/05/18 09:00 12/05/18 08:59 11/08/18 09:26 Mt Peralta MD Nov 08, 2018 10:03
[2018-11-08 11:31] VITALS: BP 113/75
--- NOTE | 2018-11-08 12:34 | Surgery Progress Note ---
Surgery Progress Note Subjective Symptoms: improved, tolerating diet, voiding well, passing flatus, BM, pain decreased Objective Last 24 Hour Vital Signs Date Time Temp Pulse Resp B/P (MAP) Pulse Ox O2 Delivery O2 Flow Rate FiO2 11/08/18 11:31 98.1 101 18 113/75 (88) 95 11/08/18 09:00 Room Air 11/08/18 08:00 99.4 101 18 120/74 (89) 95 11/08/18 00:00 99.5 93 18 134/87 (103) 94 11/07/18 21:00 Room Air 11/07/18 20:00 99.0 103 17 130/85 (100) 96 11/07/18 16:00 98.6 102 20 129/78 (95) 96 I&O Intake and Output 11/07/18 11/08/18 18:59 06:59 Intake Total 400 ml 360 ml Output Total 1495 ml 1511 ml Balance -1095 ml -1151 ml Intake Oral 400 ml 360 ml Output Urine Total 600 ml 600 ml Drainage Total 895 ml 911 ml # Bowel Movements 1 Dressing: dry Wound: clean Drains: other Cardiovascular: RSR Respiratory: clear Abdomen: soft, flat, non-tender, present bowel sounds, non-distended Extremities: no edema, no tenderness, no cyanosis Plan Problems: (1) Abdominal pain Assessment & Plan: 68M s/p recovering abd pain labs noted exam as above -BILATERAL NEPHROSTOMY TUBES PLACED LT: LOCKING 8FT PIGTAIL CATHETER RT: NON LOCKING 8FT PIGTAIL CATHETER KUB identified potential malpositioning of the right nephrostomy tube with plans for replacement with advancement by radiology. alvino drain output improved nephro tube working well abd exam benign and much improved pending alvino drain Cr level. -will monitor abd exam -diet as tolerated -iv fluids -dressings -drain care -nephrostomy tube care and reposition done -abx -will follow with exam and recs thank you for allowing me to participate in patients care. (2) Prostate CA Giacomo Berrios Nov 08, 2018 12:34
[2018-11-08 15:47] VITALS: BP 114/79
--- NOTE | 2018-11-08 19:30 | NUR ---
NURSE NOTES: Received report from AM RNErika. Patient is in bed and requesting laxatives. Spoke to patient and explained that he is having regular bowel movements and that his feelings of fullness are normal per Dr. Peralta. Patient says he "doesn't want to talk to (RN) anymore". Both left and right nephrostomy tubes draining serosanguineous liquid to gravity. LIDIA drain is draining serosanguineous liquid. Mesa catheter draining clear yellow urine to gravity. IV site is c/d/i with no c/o of pain. No c/o SOB on room air. Call light is in reach.
--- NOTE | 2018-11-08 19:30 | NUR ---
HAND-OFF: Report given to HOLLY Mac.
--- NOTE | 2018-11-08 19:34 | NUR ---
NURSE NOTES: Pt c/o of feeling like he didn't completely empty his bowels; per Dr. Peralta, that is normal and would not like to order any PRN med at this time. Endorsed to slot shift supervisor RN.
[2018-11-08 20:00] VITALS: BP 119/75
[2018-11-09] VITALS: BP 127/77
[2018-11-09 04:00] VITALS: BP 123/76
[2018-11-09 06:03] LABS: BASOPHILS % (AUTO) 0.8 % (0.0-2.0); EOSINOPHILS % (AUTO) 3.8 % (0.0-3.0); HEMATOCRIT 31.7 % (42.0-52.0); HEMOGLOBIN 10.4 G/DL (14.2-18.0); LYMPHOCYTES % (AUTO) 16.3 % (20.0-45.0); MEAN CORPUSCULAR VOLUME 95 FL (80-99); NEUTROPHILS % (AUTO) 72.1 % (45.0-75.0); PLATELET COUNT 457 K/UL (150-450); RED BLOOD COUNT 3.33 M/UL (4.70-6.10); RED CELL DISTRIBUTION WIDTH 13.4 % (11.6-14.8); WHITE BLOOD COUNT 11.4 K/UL (4.8-10.8)
[2018-11-09 06:08] LABS: ANION GAP 8 mmol/L (5-15); BLOOD UREA NITROGEN 21 mg/dL (7-18); CALCIUM 9.7 MG/DL (8.5-10.1); CARBON DIOXIDE 28 MMOL/L (21-32); CHLORIDE 106 MMOL/L (98-107); CREATININE 1.2 MG/DL (0.55-1.30); POTASSIUM 5.4 MMOL/L (3.5-5.1); SODIUM 142 MMOL/L (136-145)
[2018-11-09] MEDS: HYDROmorphone 1mg/ml Carpuject IVP PRN ×3 (06:20→20:18)
--- NOTE | 2018-11-09 07:30 | NUR ---
NURSE NOTES: Pt lying in bed w/bed in lowest position and call light within reach. Pt A&Ox3, VSS, and in no apparent distress at this time. IV site intact/asymptomatic & H/L'd and surgical patricia C/D/I & YUMIKO; F/C patent/draining well; LIDIA drain to bulb suction; and b/l nephrostomy tubes intact/draining. Pt has no concerns or complaints at this time. Will continue to monitor.
--- NOTE | 2018-11-09 07:37 | NUR ---
HAND-OFF: Report given to Erika. Dr. Peralta contacted in regard to patient's elevated potassium level of 5.4. MD state he "will be in soon and take care of it". Patient in stable condition at this time.
[2018-11-09 08:00] VITALS: BP 124/74
[2018-11-09] MEDS: Nephrovite tab (Rena-Vite) ORAL SCH (08:12)
[2018-11-09] MEDS: BuPROPion XL 150mg tab ORAL SCH (08:13)
--- NOTE | 2018-11-09 08:40 | Pulmonology Progress Note ---
Assessment/Plan Assessment/Plan IMPRESSION: This is a 68-year-old male with underlyin. Psychiatric disorder. 2. History of colon CA. 3. Prostate CA. 4. S/p prostatectomy, open, with resection of rectum and repositioning of bladder/ureter DISCUSSION: Seen by renal S/p bilateral perc nephrostomies Perc nephrostomy replacement R sided Will follow Discussed with urology DC planning per urology and surgery Lab results noted; will dc PO KCL Subjective Interval Events: Had BM yesterday with some discomfort Constitutional: Reports: no symptoms HEENT: Repors: no symptoms Respiratory: Reports: no symptoms Cardiovascular: Reports: no symptoms Gastrointestinal/Abdominal: Reports: no symptoms Allergies: Coded Allergies: No Known Allergies (Unverified , 10/28/18) Objective Last 24 Hour Vital Signs Date Time Temp Pulse Resp B/P (MAP) Pulse Ox O2 Delivery O2 Flow Rate FiO2 11/09/18 08:00 98.2 96 18 124/74 (91) 98 11/09/18 04:00 99.2 105 18 123/76 (92) 95 11/09/18 00:00 99.6 106 16 127/77 (94) 95 11/08/18 21:00 Room Air 11/08/18 20:00 98.5 107 18 119/75 (90) 96 11/08/18 15:47 99.6 109 18 114/79 (91) 96 11/08/18 11:31 98.1 101 18 113/75 (88) 95 11/08/18 09:00 Room Air Intake and Output 11/08/18 11/09/18 19:00 07:00 Intake Total 500 ml 480 ml Output Total 736 ml 760 ml Balance -236 ml -280 ml Intake Oral 500 ml 480 ml Output Urine Total 325 ml Drainage Total 411 ml 760 ml # Bowel Movements 1 General Appearance: no acute distress HEENT: normocephalic Respiratory/Chest: chest wall non-tender, lungs clear Cardiovascular: normal peripheral pulses, normal rate Abdomen: normal bowel sounds Laboratory Tests 11/09/18 05:20: White Blood Count 11.4H, Red Blood Count 3.33L, Hemoglobin 10.4L, Hematocrit 31.7L, Mean Corpuscular Volume 95, Mean Corpuscular Hemoglobin 31.2H, Mean Corpuscular Hemoglobin Concent 32.8, Red Cell Distribution Width 13.4, Platelet Count 457H, Mean Platelet Volume 7.5, Neutrophils (%) (Auto) 72.1, Lymphocytes ( %) (Auto) 16.3L, Monocytes (%) (Auto) 7.0, Eosinophils (%) (Auto) 3.8H, Basophils (%) (Auto) 0.8, Sodium Level 142, Potassium Level 5.4H, Chloride Level 106, Carbon Dioxide Level 28, Anion Gap 8, Blood Urea Nitrogen 21H, Creatinine 1.2, Estimat Glomerular Filtration Rate > 60, Glucose Level 102, Calcium Level 9.7 Current Medications Medications (Trade) Dose Ordered Sig/Juliano Route PRN Reason Start Time Stop Time Status Last Admin Dose Admin Acetaminophen (Tylenol) 650 mg Q4H PRN ORAL T>100.5 10/29/18 15:15 11/28/18 15:14 Bupropion HCl (Wellbutrin XL) 300 mg DAILY ORAL 10/29/18 09:00 11/28/18 08:59 11/09/18 08:13 Hydromorphone HCl (Dilaudid) 1 mg Q3H PRN IVP Severe Pain (Pain Scale 7-10) 11/05/18 15:00 11/12/18 14:59 11/09/18 06:20 Mirtazapine (Remeron) 30 mg QHS ORAL 10/28/18 21:00 11/27/18 20:59 11/08/18 21:35 Ondansetron HCl (Zofran) 4 mg Q6H PRN IVP Nausea & Vomiting 10/29/18 15:30 11/28/18 15:29 Pantoprazole (Protonix) 40 mg DAILY ORAL 11/05/18 09:00 12/05/18 08:59 11/09/18 08:12 Potassium Chloride (K-Dur) 20 meq DAILY ORAL 11/04/18 09:00 12/04/18 08:59 11/08/18 09:26 Vitamin B Complex/ Vit C/Folic Acid (Nephrovite) 1 tab DAILY ORAL 11/05/18 09:00 12/05/18 08:59 11/09/18 08:12 Mt Peralta MD Nov 09, 2018 08:40
[2018-11-09 12:00] VITALS: BP 116/73
--- NOTE | 2018-11-09 15:45 | Surgery Progress Note ---
Surgery Progress Note Subjective Additional Comments No acute events. States pain is getting better. Comfortable. Wants his Mesa out soon. Labs noted. Leukocytosis 11,000. Pending drain creatinine Objective Last 24 Hour Vital Signs Date Time Temp Pulse Resp B/P (MAP) Pulse Ox O2 Delivery O2 Flow Rate FiO2 11/09/18 12:00 98.0 103 18 116/73 (87) 98 11/09/18 09:00 Room Air 11/09/18 08:00 98.2 96 18 124/74 (91) 98 11/09/18 04:00 99.2 105 18 123/76 (92) 95 11/09/18 00:00 99.6 106 16 127/77 (94) 95 11/08/18 21:00 Room Air 11/08/18 20:00 98.5 107 18 119/75 (90) 96 11/08/18 15:47 99.6 109 18 114/79 (91) 96 I&O Intake and Output 11/08/18 11/09/18 19:00 07:00 Intake Total 500 ml 480 ml Output Total 736 ml 760 ml Balance -236 ml -280 ml Intake Oral 500 ml 480 ml Output Urine Total 325 ml Drainage Total 411 ml 760 ml # Bowel Movements 1 Dressing: dry Wound: clean Drains: other Cardiovascular: RSR Respiratory: clear Abdomen: soft, flat, non-tender, present bowel sounds, non-distended Extremities: no edema, no tenderness, no cyanosis Laboratory Tests Test 11/09/18 05:20 White Blood Count 11.4 K/UL (4.8-10.8) H Red Blood Count 3.33 M/UL (4.70-6.10) L Hemoglobin 10.4 G/DL (14.2-18.0) L Hematocrit 31.7 % (42.0-52.0) L Mean Corpuscular Volume 95 FL (80-99) Mean Corpuscular Hemoglobin 31.2 PG (27.0-31.0) H Mean Corpuscular Hemoglobin Concent 32.8 G/DL (32.0-36.0) Red Cell Distribution Width 13.4 % (11.6-14.8) Platelet Count 457 K/UL (150-450) H Mean Platelet Volume 7.5 FL (6.5-10.1) Neutrophils (%) (Auto) 72.1 % (45.0-75.0) Lymphocytes (%) (Auto) 16.3 % (20.0-45.0) L Monocytes (%) (Auto) 7.0 % (1.0-10.0) Eosinophils (%) (Auto) 3.8 % (0.0-3.0) H Basophils (%) (Auto) 0.8 % (0.0-2.0) Sodium Level 142 MMOL/L (136-145) Potassium Level 5.4 MMOL/L (3.5-5.1) H Chloride Level 106 MMOL/L (98-107) Carbon Dioxide Level 28 MMOL/L (21-32) Anion Gap 8 mmol/L (5-15) Blood Urea Nitrogen 21 mg/dL (7-18) H Creatinine 1.2 MG/DL (0.55-1.30) Estimat Glomerular Filtration Rate > 60 mL/min (>60) Glucose Level 102 MG/DL (74-106) Calcium Level 9.7 MG/DL (8.5-10.1) Plan Problems: (1) Abdominal pain Assessment & Plan: 68M s/p recovering abd pain labs noted exam as above -BILATERAL NEPHROSTOMY TUBES PLACED LT: LOCKING 8FT PIGTAIL CATHETER RT: NON LOCKING 8FT PIGTAIL CATHETER KUB identified potential malpositioning of the right nephrostomy tube with plans for replacement with advancement by radiology. alvino drain output improved nephro tube working well abd exam benign and much improved pending alvino drain Cr level. A.m. labs -will monitor abd exam -diet as tolerated -iv fluids -dressings -drain care -nephrostomy tube care and reposition done -abx -will follow with exam and recs thank you for allowing me to participate in patients care. (2) Prostate CA Giacomo Berrios Nov 09, 2018 15:45
[2018-11-09 16:00] VITALS: BP 114/80
--- NOTE | 2018-11-09 19:01 | NUR ---
HAND-OFF: Report given to HOLLY Mac.
--- NOTE | 2018-11-09 19:38 | NUR ---
NURSE NOTES: Received report from HOLLY James. Patient is resting comfortably in bed. No c/o of pain or SOB at this time. L and R nephrostomy tubes draining serosanguineous fluid to uresil bags. LIDIA drain intact and draining to gravity. Mesa catheter draining to gravity. Bed in low and locked position with call light within reach.
[2018-11-09 20:00] VITALS: BP 114/80
[2018-11-10] VITALS: BP 114/68
[2018-11-10] MEDS: HYDROmorphone 1mg/ml Carpuject IVP PRN ×6 (02:24→21:25)
[2018-11-10 04:00] VITALS: BP 129/81
[2018-11-10 06:35] LABS: BASOPHILS % (AUTO) 1.8 % (0.0-2.0); EOSINOPHILS % (AUTO) 4.2 % (0.0-3.0); HEMATOCRIT 32.1 % (42.0-52.0); HEMOGLOBIN 10.6 G/DL (14.2-18.0); LYMPHOCYTES % (AUTO) 16.8 % (20.0-45.0); MEAN CORPUSCULAR VOLUME 95 FL (80-99); MONOCYTES % (AUTO) 6.3 % (1.0-10.0); PLATELET COUNT 460 K/UL (150-450); RED BLOOD COUNT 3.36 M/UL (4.70-6.10); WHITE BLOOD COUNT 10.2 K/UL (4.8-10.8)
[2018-11-10 06:47] LABS: ALANINE AMINOTRANSFERASE 33 U/L (12-78); ALBUMIN 3.1 G/DL (3.4-5.0); ALBUMIN/GLOBULIN RATIO 0.7 (1.0-2.7); ALKALINE PHOSPHATASE 76 U/L (46-116); ANION GAP 6 mmol/L (5-15); ASPARTATE AMINO TRANSFERASE 23 U/L (15-37); BILIRUBIN,TOTAL 0.2 MG/DL (0.2-1.0); BLOOD UREA NITROGEN 25 mg/dL (7-18); CALCIUM 10.2 MG/DL (8.5-10.1); CARBON DIOXIDE 31 MMOL/L (21-32); CHLORIDE 105 MMOL/L (98-107); CREATININE 1.3 MG/DL (0.55-1.30); SODIUM 142 MMOL/L (136-145)
--- NOTE | 2018-11-10 07:42 | NUR ---
HAND-OFF: Report given to Matt Jimenez RN. Patient in stable condition.
--- NOTE | 2018-11-10 07:45 | NUR ---
NURSE NOTES: Received report from HOLLY Queen. Rounding done with outgoing nurse. Pt a/o x 3, in bed, having breakfast. 2 of nephrostomy bag is in placed. Surgical dressing site is C/D/I. LIDIA drain is in placed. Mesa catheter is patent, yellowish color noted. C/O abdominal pain as 7/10 and pain medicine will be given as MD ordered. Bed in lowest position, call light within reach. Will continue to monitor.
[2018-11-10 08:00] VITALS: BP 137/88
[2018-11-10] MEDS: Nephrovite tab (Rena-Vite) ORAL SCH (08:31)
[2018-11-10] MEDS: BuPROPion XL 150mg tab ORAL SCH (08:32)
--- NOTE | 2018-11-10 09:25 | Pulmonology Progress Note ---
Assessment/Plan Assessment/Plan IMPRESSION: This is a 68-year-old male with underlyin. Psychiatric disorder. 2. History of colon CA. 3. Prostate CA. 4. S/p prostatectomy, open, with resection of rectum and repositioning of bladder/ureter DISCUSSION: Seen by renal S/p bilateral perc nephrostomies Perc nephrostomy replacement R sided Will follow Discussed with urology DC planning per urology and surgery Await LIDIA drain cr level Subjective Interval Events: None new; awiting LIDIA drain creatinine level Constitutional: Reports: no symptoms HEENT: Repors: no symptoms Respiratory: Reports: no symptoms Cardiovascular: Reports: no symptoms Gastrointestinal/Abdominal: Reports: no symptoms Allergies: Coded Allergies: No Known Allergies (Unverified , 10/28/18) Objective Last 24 Hour Vital Signs Date Time Temp Pulse Resp B/P (MAP) Pulse Ox O2 Delivery O2 Flow Rate FiO2 11/10/18 08:00 97.6 111 16 137/88 (104) 97 11/10/18 04:00 99.0 106 16 129/81 (97) 96 11/10/18 00:00 99.1 99 16 114/68 (83) 100 11/09/18 21:00 Room Air 11/09/18 20:00 99.0 113 18 114/80 (91) 100 11/09/18 16:00 98.4 112 18 114/80 (91) 98 11/09/18 12:00 98.0 103 18 116/73 (87) 98 Intake and Output 11/09/18 11/10/18 19:00 07:00 Intake Total 480 ml 480 ml Output Total 941 ml 959 ml Balance -461 ml -479 ml Intake Oral 480 ml 480 ml Output Urine Total 400 ml 550 ml Drainage Total 541 ml 409 ml # Bowel Movements 2 2 General Appearance: no acute distress HEENT: normocephalic Respiratory/Chest: chest wall non-tender, lungs clear Cardiovascular: normal peripheral pulses, normal rate Abdomen: normal bowel sounds Laboratory Tests 11/10/18 05:25: White Blood Count 10.2, Red Blood Count 3.36L, Hemoglobin 10.6L, Hematocrit 32.1L, Mean Corpuscular Volume 95, Mean Corpuscular Hemoglobin 31.4H, Mean Corpuscular Hemoglobin Concent 32.9, Red Cell Distribution Width 13.0, Platelet Count 460H, Mean Platelet Volume 7.5, Neutrophils (%) (Auto) 71.0, Lymphocytes ( %) (Auto) 16.8L, Monocytes (%) (Auto) 6.3, Eosinophils (%) (Auto) 4.2H, Basophils (%) (Auto) 1.8 11/10/18 05:35: Sodium Level 142, Potassium Level 5.0, Chloride Level 105, Carbon Dioxide Level 31, Anion Gap 6, Blood Urea Nitrogen 25H, Creatinine 1.3, Estimat Glomerular Filtration Rate > 60, Glucose Level 100, Calcium Level 10.2H, Total Bilirubin 0.2, Aspartate Amino Transf (AST/SGOT) 23, Alanine Aminotransferase (ALT/SGPT) 33, Alkaline Phosphatase 76, Total Protein 7.5, Albumin 3.1L, Globulin 4.4, Albumin/Globulin Ratio 0.7L Current Medications Medications (Trade) Dose Ordered Sig/Juliano Route PRN Reason Start Time Stop Time Status Last Admin Dose Admin Acetaminophen (Tylenol) 650 mg Q4H PRN ORAL T>100.5 10/29/18 15:15 11/28/18 15:14 Bupropion HCl (Wellbutrin XL) 300 mg DAILY ORAL 10/29/18 09:00 11/28/18 08:59 11/10/18 08:32 Hydromorphone HCl (Dilaudid) 1 mg Q3H PRN IVP Severe Pain (Pain Scale 7-10) 11/05/18 15:00 11/12/18 14:59 11/10/18 05:57 Mirtazapine (Remeron) 30 mg QHS ORAL 10/28/18 21:00 11/27/18 20:59 11/09/18 20:18 Ondansetron HCl (Zofran) 4 mg Q6H PRN IVP Nausea & Vomiting 10/29/18 15:30 11/28/18 15:29 Pantoprazole (Protonix) 40 mg DAILY ORAL 11/05/18 09:00 12/05/18 08:59 11/10/18 08:31 Vitamin B Complex/ Vit C/Folic Acid (Nephrovite) 1 tab DAILY ORAL 11/05/18 09:00 12/05/18 08:59 11/10/18 08:31 Mt Peralta MD Nov 10, 2018 09:25
[2018-11-10 12:00] VITALS: BP 119/74
--- NOTE | 2018-11-10 12:53 | NUR ---
RD ASSESSMENT & RECOMMENDATIONS SEE CARE ACTIVITY FOR COMPLETE ASSESSMENT DAILY ESTIMATED NEEDS: Needs based on Surgery, 64kg 25-30 kcals/kg 8776-2974 total kcals 1-2 g protein/kg 64-128 g total protein 25-30 mL/kg 9940-2619 total fluid mLs NUTRITION DIAGNOSIS: Increased kcal/prot intake needs R/T surgery as evidenced by h/o prostate CA, s/p prostatectomy, open, with resection of rectum and repositioning of bladder/ureter, now on regular diet. CURRENT DIET: REGULAR PO DIET RECOMMENDATIONS: Diet per surgeon -> REGULAR + SNACKS BID ADDITIONAL RECOMMENDATIONS: * Standing wt as able for accurate CBW * ENSURE 1 bottle BID in b/w meals * Monitor PO intake closely once diet initiates -> intake improving (mostly >50% intake) * Monitor K, need for low K diet
[2018-11-10 16:00] VITALS: BP 123/72
--- NOTE | 2018-11-10 16:35 | Surgery Progress Note ---
Surgery Progress Note Subjective Symptoms: improved, tolerating diet, voiding well, passing flatus, BM, pain decreased Objective Last 24 Hour Vital Signs Date Time Temp Pulse Resp B/P (MAP) Pulse Ox O2 Delivery O2 Flow Rate FiO2 11/10/18 12:00 98.0 102 16 119/74 (89) 98 11/10/18 09:00 Room Air 11/10/18 08:00 97.6 111 16 137/88 (104) 97 11/10/18 04:00 99.0 106 16 129/81 (97) 96 11/10/18 00:00 99.1 99 16 114/68 (83) 100 11/09/18 21:00 Room Air 11/09/18 20:00 99.0 113 18 114/80 (91) 100 I&O Intake and Output 11/09/18 11/10/18 19:00 07:00 Intake Total 480 ml 480 ml Output Total 941 ml 959 ml Balance -461 ml -479 ml Intake Oral 480 ml 480 ml Output Urine Total 400 ml 550 ml Drainage Total 541 ml 409 ml # Bowel Movements 2 2 Dressing: dry Wound: clean Drains: other Cardiovascular: RSR Respiratory: clear Abdomen: soft, flat, non-tender, present bowel sounds, non-distended Extremities: no edema, no tenderness, no cyanosis Laboratory Tests Test 11/10/18 05:25 11/10/18 05:35 White Blood Count 10.2 K/UL (4.8-10.8) Red Blood Count 3.36 M/UL (4.70-6.10) L Hemoglobin 10.6 G/DL (14.2-18.0) L Hematocrit 32.1 % (42.0-52.0) L Mean Corpuscular Volume 95 FL (80-99) Mean Corpuscular Hemoglobin 31.4 PG (27.0-31.0) H Mean Corpuscular Hemoglobin Concent 32.9 G/DL (32.0-36.0) Red Cell Distribution Width 13.0 % (11.6-14.8) Platelet Count 460 K/UL (150-450) H Mean Platelet Volume 7.5 FL (6.5-10.1) Neutrophils (%) (Auto) 71.0 % (45.0-75.0) Lymphocytes (%) (Auto) 16.8 % (20.0-45.0) L Monocytes (%) (Auto) 6.3 % (1.0-10.0) Eosinophils (%) (Auto) 4.2 % (0.0-3.0) H Basophils (%) (Auto) 1.8 % (0.0-2.0) Sodium Level 142 MMOL/L (136-145) Potassium Level 5.0 MMOL/L (3.5-5.1) Chloride Level 105 MMOL/L (98-107) Carbon Dioxide Level 31 MMOL/L (21-32) Anion Gap 6 mmol/L (5-15) Blood Urea Nitrogen 25 mg/dL (7-18) H Creatinine 1.3 MG/DL (0.55-1.30) Estimat Glomerular Filtration Rate > 60 mL/min (>60) Glucose Level 100 MG/DL (74-106) Calcium Level 10.2 MG/DL (8.5-10.1) H Total Bilirubin 0.2 MG/DL (0.2-1.0) Aspartate Amino Transf (AST/SGOT) 23 U/L (15-37) Alanine Aminotransferase (ALT/SGPT) 33 U/L (12-78) Alkaline Phosphatase 76 U/L (46-116) Total Protein 7.5 G/DL (6.4-8.2) Albumin 3.1 G/DL (3.4-5.0) L Globulin 4.4 g/dL Albumin/Globulin Ratio 0.7 (1.0-2.7) L Plan Problems: (1) Abdominal pain Assessment & Plan: 68M s/p recovering abd pain labs noted exam as above -BILATERAL NEPHROSTOMY TUBES PLACED LT: LOCKING 8FT PIGTAIL CATHETER RT: NON LOCKING 8FT PIGTAIL CATHETER KUB identified potential malpositioning of the right nephrostomy tube with plans for replacement with advancement by radiology. alvino drain output improved nephro tube working well abd exam benign and much improved pending alvino drain Cr level. d/c planning will plan to leave duong and nephrostomy tubes in place for a bit longer. will need cysto later and consideration of clamping nephrostomy tubes prior to removal but not ready yet A.m. labs -will monitor abd exam -diet as tolerated -iv fluids -dressings -drain care -nephrostomy tube care and reposition done -abx -will follow with exam and recs thank you for allowing me to participate in patients care. (2) Prostate CA Giacomo Berrios Nov 10, 2018 16:35
--- NOTE | 2018-11-10 17:50 | NUR ---
CASE MANAGEMENT: REVIEW 11/10/2018 SI:MALIGNANT NEOPLASM OF THE PROSTATE. T 98.6 HR 111 RR 16 B/P 123/72 SATS 97% ON RA BUN 25 CA 10.2 IS:WELLBUTRIN PO QD MED/SURG STATUS
--- NOTE | 2018-11-10 19:33 | NUR ---
HAND-OFF: Report given to HOLLY Murdock. Pt is stable.
--- NOTE | 2018-11-10 19:34 | NUR ---
NURSE NOTES: Received report & pt from HOLLY Valadez. Pt lying in bed, a&ox3, in room air. No s/s of acute distress & c/o 08/20 pain. Will give PRN pain med when due & pt verbalized understanding. Mesa cath intact & draining to gravity. LIDIA drain to bulb suction. Nephrostomy tube x 2 intact with dressing C/D/I. surgical dressing with patricia C/D/I & open to air. IV site intact & S/L'd. Bed in lowest position, call light within reach. Will continue to monitor.
[2018-11-10 20:00] VITALS: BP 111/71
[2018-11-11] MEDS: HYDROmorphone 1mg/ml Carpuject IVP PRN ×6 (03:50→21:06)
[2018-11-11 04:00] VITALS: BP 121/83
[2018-11-11 05:33] LABS: BASOPHILS % (AUTO) 1.2 % (0.0-2.0); HEMATOCRIT 33.9 % (42.0-52.0); HEMOGLOBIN 11.1 G/DL (14.2-18.0); LYMPHOCYTES % (AUTO) 12.5 % (20.0-45.0); MEAN CORPUSCULAR VOLUME 94 FL (80-99); NEUTROPHILS % (AUTO) 78.4 % (45.0-75.0); PLATELET COUNT 469 K/UL (150-450); RED BLOOD COUNT 3.61 M/UL (4.70-6.10); RED CELL DISTRIBUTION WIDTH 13.1 % (11.6-14.8); WHITE BLOOD COUNT 14.1 K/UL (4.8-10.8)
[2018-11-11 05:41] LABS: ALANINE AMINOTRANSFERASE 33 U/L (12-78); ALBUMIN 3.1 G/DL (3.4-5.0); ALBUMIN/GLOBULIN RATIO 0.7 (1.0-2.7); ALKALINE PHOSPHATASE 82 U/L (46-116); ANION GAP 6 mmol/L (5-15); ASPARTATE AMINO TRANSFERASE 17 U/L (15-37); BILIRUBIN,TOTAL 0.2 MG/DL (0.2-1.0); BLOOD UREA NITROGEN 31 mg/dL (7-18); CALCIUM 10.2 MG/DL (8.5-10.1); CARBON DIOXIDE 32 MMOL/L (21-32); CHLORIDE 103 MMOL/L (98-107); CREATININE 1.2 MG/DL (0.55-1.30); SODIUM 141 MMOL/L (136-145)
--- NOTE | 2018-11-11 06:54 | NUR ---
NURSE NOTES: Dr. Berrios informed of today's lab result WBC 14.1 (pt afebrile) & BUN 31. Will endorse to next shift.
--- NOTE | 2018-11-11 07:26 | NUR ---
HAND-OFF: Report given to HOLLY James. Rounds done.
--- NOTE | 2018-11-11 07:30 | NUR ---
NURSE NOTES: Pt lying in bed w/bed in lowest position and call light within reach. Pt A&Ox3, VSS, and in no apparent distress at this time. IV site intact/asymptomatic & H/L'd and surgical patricia C/D/I & YUMIKO; F/C patent/draining well; LIDIA drain to bulb suction; and b/l nephrostomy tubes intact/draining. Pt c/o penile pain; will administer pain medication. Will continue to monitor.
[2018-11-11 08:00] VITALS: BP 120/81
--- NOTE | 2018-11-11 09:48 | Pulmonology Progress Note ---
Assessment/Plan Assessment/Plan IMPRESSION: This is a 68-year-old male with underlyin. Psychiatric disorder. 2. History of colon CA. 3. Prostate CA. 4. S/p prostatectomy, open, with resection of rectum and repositioning of bladder/ureter DISCUSSION: Seen by renal S/p bilateral perc nephrostomies Perc nephrostomy replacement R sided Will follow Discussed with urology DC planning per urology and surgery Await LIDIA drain cr level Subjective Interval Events: WBC high; discussed with Dr Berrios Constitutional: Reports: no symptoms HEENT: Repors: no symptoms Respiratory: Reports: no symptoms Cardiovascular: Reports: no symptoms Gastrointestinal/Abdominal: Reports: no symptoms Genitourinary: Reports: no symptoms Allergies: Coded Allergies: No Known Allergies (Unverified , 10/28/18) Objective Last 24 Hour Vital Signs Date Time Temp Pulse Resp B/P (MAP) Pulse Ox O2 Delivery O2 Flow Rate FiO2 11/11/18 08:00 98.4 128 22 120/81 (94) 98 11/11/18 04:00 98.7 114 17 121/83 (96) 98 11/10/18 21:00 Room Air 11/10/18 20:00 98.4 109 18 111/71 (84) 99 11/10/18 16:00 98.6 111 16 123/72 (89) 97 11/10/18 12:00 98.0 102 16 119/74 (89) 98 Intake and Output 11/10/18 11/11/18 19:00 07:00 Intake Total 850 ml 480 ml Output Total 1112 ml 1064 ml Balance -262 ml -584 ml Intake Oral 850 ml 480 ml Output Urine Total 480 ml 300 ml Drainage Total 632 ml 764 ml # Bowel Movements 1 General Appearance: no acute distress HEENT: normocephalic Respiratory/Chest: chest wall non-tender, lungs clear Cardiovascular: normal peripheral pulses Abdomen: normal bowel sounds Laboratory Tests 11/11/18 04:50: White Blood Count 14.1H, Red Blood Count 3.61L, Hemoglobin 11.1L, Hematocrit 33.9L, Mean Corpuscular Volume 94, Mean Corpuscular Hemoglobin 30.7, Mean Corpuscular Hemoglobin Concent 32.7, Red Cell Distribution Width 13.1, Platelet Count 469H, Mean Platelet Volume 7.6, Neutrophils (%) (Auto) 78.4H, Lymphocytes (%) (Auto) 12.5L, Monocytes (%) (Auto) 5.0, Eosinophils (%) (Auto) 3.0, Basophils (%) (Auto) 1.2, Sodium Level 141, Potassium Level 5.0, Chloride Level 103, Carbon Dioxide Level 32, Anion Gap 6, Blood Urea Nitrogen 31H, Creatinine 1.2, Estimat Glomerular Filtration Rate > 60, Glucose Level 110H, Calcium Level 10.2H, Total Bilirubin 0.2, Aspartate Amino Transf (AST/SGOT) 17, Alanine Aminotransferase (ALT/SGPT) 33, Alkaline Phosphatase 82, Total Protein 7.6, Albumin 3.1L, Globulin 4.5, Albumin/Globulin Ratio 0.7L Current Medications Medications (Trade) Dose Ordered Sig/Juliano Route PRN Reason Start Time Stop Time Status Last Admin Dose Admin Acetaminophen (Tylenol) 650 mg Q4H PRN ORAL T>100.5 10/29/18 15:15 11/28/18 15:14 Bupropion HCl (Wellbutrin XL) 300 mg DAILY ORAL 10/29/18 09:00 11/28/18 08:59 11/10/18 08:32 Hydromorphone HCl (Dilaudid) 1 mg Q3H PRN IVP Severe Pain (Pain Scale 7-10) 11/05/18 15:00 11/12/18 14:59 11/11/18 06:46 Mirtazapine (Remeron) 30 mg QHS ORAL 10/28/18 21:00 11/27/18 20:59 11/10/18 20:31 Ondansetron HCl (Zofran) 4 mg Q6H PRN IVP Nausea & Vomiting 10/29/18 15:30 11/28/18 15:29 Pantoprazole (Protonix) 40 mg DAILY ORAL 11/05/18 09:00 12/05/18 08:59 11/10/18 08:31 Vitamin B Complex/ Vit C/Folic Acid (Nephrovite) 1 tab DAILY ORAL 11/05/18 09:00 12/05/18 08:59 11/10/18 08:31 Mt Peralta MD Nov 11, 2018 09:48
[2018-11-11] MEDS: Nephrovite tab (Rena-Vite) ORAL SCH (09:49)
[2018-11-11] MEDS: BuPROPion XL 150mg tab ORAL SCH (09:50)
[2018-11-11] MEDS ORDERED: Omnipaque-300 100ml vial INJ PRN (10:00)
--- NOTE | 2018-11-11 10:51 | Surgery Progress Note ---
Surgery Progress Note Subjective Additional Comments leukocytosis BUN elevated otherwise stable CT ordered hydrate Objective Last 24 Hour Vital Signs Date Time Temp Pulse Resp B/P (MAP) Pulse Ox O2 Delivery O2 Flow Rate FiO2 11/11/18 09:00 Room Air 11/11/18 08:00 98.4 128 22 120/81 (94) 98 11/11/18 04:00 98.7 114 17 121/83 (96) 98 11/10/18 21:00 Room Air 11/10/18 20:00 98.4 109 18 111/71 (84) 99 11/10/18 16:00 98.6 111 16 123/72 (89) 97 11/10/18 12:00 98.0 102 16 119/74 (89) 98 I&O Intake and Output 11/10/18 11/11/18 19:00 07:00 Intake Total 850 ml 480 ml Output Total 1112 ml 1064 ml Balance -262 ml -584 ml Intake Oral 850 ml 480 ml Output Urine Total 480 ml 300 ml Drainage Total 632 ml 764 ml # Bowel Movements 1 Dressing: dry Wound: clean Drains: other Cardiovascular: RSR Respiratory: clear Abdomen: soft, flat, non-tender, present bowel sounds Extremities: no edema, no tenderness, no cyanosis Laboratory Tests Test 11/11/18 04:50 White Blood Count 14.1 K/UL (4.8-10.8) H Red Blood Count 3.61 M/UL (4.70-6.10) L Hemoglobin 11.1 G/DL (14.2-18.0) L Hematocrit 33.9 % (42.0-52.0) L Mean Corpuscular Volume 94 FL (80-99) Mean Corpuscular Hemoglobin 30.7 PG (27.0-31.0) Mean Corpuscular Hemoglobin Concent 32.7 G/DL (32.0-36.0) Red Cell Distribution Width 13.1 % (11.6-14.8) Platelet Count 469 K/UL (150-450) H Mean Platelet Volume 7.6 FL (6.5-10.1) Neutrophils (%) (Auto) 78.4 % (45.0-75.0) H Lymphocytes (%) (Auto) 12.5 % (20.0-45.0) L Monocytes (%) (Auto) 5.0 % (1.0-10.0) Eosinophils (%) (Auto) 3.0 % (0.0-3.0) Basophils (%) (Auto) 1.2 % (0.0-2.0) Sodium Level 141 MMOL/L (136-145) Potassium Level 5.0 MMOL/L (3.5-5.1) Chloride Level 103 MMOL/L (98-107) Carbon Dioxide Level 32 MMOL/L (21-32) Anion Gap 6 mmol/L (5-15) Blood Urea Nitrogen 31 mg/dL (7-18) H Creatinine 1.2 MG/DL (0.55-1.30) Estimat Glomerular Filtration Rate > 60 mL/min (>60) Glucose Level 110 MG/DL (74-106) H Calcium Level 10.2 MG/DL (8.5-10.1) H Total Bilirubin 0.2 MG/DL (0.2-1.0) Aspartate Amino Transf (AST/SGOT) 17 U/L (15-37) Alanine Aminotransferase (ALT/SGPT) 33 U/L (12-78) Alkaline Phosphatase 82 U/L (46-116) Total Protein 7.6 G/DL (6.4-8.2) Albumin 3.1 G/DL (3.4-5.0) L Globulin 4.5 g/dL Albumin/Globulin Ratio 0.7 (1.0-2.7) L Plan Problems: (1) Abdominal pain Assessment & Plan: 68M s/p recovering abd pain labs noted exam as above -BILATERAL NEPHROSTOMY TUBES PLACED LT: LOCKING 8FT PIGTAIL CATHETER RT: NON LOCKING 8FT PIGTAIL CATHETER KUB identified potential malpositioning of the right nephrostomy tube with plans for replacement with advancement by radiology. alvino drain output improved nephro tube working well abd exam benign and much improved pending alvino drain Cr level. will plan to leave duong and nephrostomy tubes in place for a bit longer. will need cysto later and consideration of clamping nephrostomy tubes prior to removal but not ready yet CT A/P ordered A.m. labs -will monitor abd exam -diet as tolerated -iv fluids -dressings -drain care -nephrostomy tube care and reposition done -abx -will follow with exam and recs thank you for allowing me to participate in patients care. (2) Prostate CA Benyamini,Giacomo Nov 11, 2018 10:51
--- NOTE | 2018-11-11 11:49 | NUR ---
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 98.4 HR 128 RR 22 B/P 120/81 RA 98% WBC 14.1 PLT 469 BUN 31 FLUID CREATININE PENDING IS: IVF NS@100ML/HR WELLBUTRIN PO PROTONIX PO MED/SURG STATUS
[2018-11-11 12:00] VITALS: BP 128/85
[2018-11-11 16:00] VITALS: BP 143/79
--- NOTE | 2018-11-11 18:40 | NUR ---
NURSE NOTES: Contacted Dr. Peralta regarding pt's tachycardia and odorous, cloudy urine; MD ordered NS bolus 500 ml x 1 and urine culture. Will continue to monitor.
--- NOTE | 2018-11-11 19:03 | NUR ---
HAND-OFF: Report given to HOLLY Murdock. Endorsed to please collect urine culture specimen.
--- NOTE | 2018-11-11 19:30 | NUR ---
NURSE NOTES: Received report & pt from HOLLY James. Pt lying in bed, a&ox3, in room air. No s/s of acute distress & c/o 10/10 pain. Will give PRN pain med when due & pt verbalized understanding. Mesa cath intact & draining to gravity. LIDIA drain to bulb suction. Nephrostomy tube x 2 intact with dressing C/D/I. surgical dressing with patricia C/D/I & open to air. IV site intact with IVF running as ordered. Urine specimen to be collected through f/c. Bed in lowest position, call light within reach. Will continue to monitor.
[2018-11-11 20:00] VITALS: BP 122/76
--- NOTE | 2018-11-11 23:01 | NUR ---
NURSE NOTES: Urine specimen collected & sent down to lab.
[2018-11-12] VITALS: BP 115/75
[2018-11-12 04:00] VITALS: BP 122/71
[2018-11-12] MEDS: HYDROmorphone 1mg/ml Carpuject IVP PRN ×3 (04:13→20:43)
[2018-11-12 05:30] LABS: BASOPHILS % (AUTO) 1.6 % (0.0-2.0); EOSINOPHILS % (AUTO) 1.3 % (0.0-3.0); HEMATOCRIT 28.4 % (42.0-52.0); HEMOGLOBIN 9.2 G/DL (14.2-18.0); LYMPHOCYTES % (AUTO) 11.2 % (20.0-45.0); MEAN CORPUSCULAR VOLUME 94 FL (80-99); NEUTROPHILS % (AUTO) 78.8 % (45.0-75.0); PLATELET COUNT 385 K/UL (150-450); RED BLOOD COUNT 3.02 M/UL (4.70-6.10); RED CELL DISTRIBUTION WIDTH 12.6 % (11.6-14.8); WHITE BLOOD COUNT 15.6 K/UL (4.8-10.8)
[2018-11-12 05:59] LABS: ALANINE AMINOTRANSFERASE 25 U/L (12-78); ALBUMIN 2.8 G/DL (3.4-5.0); ALBUMIN/GLOBULIN RATIO 0.7 (1.0-2.7); ALKALINE PHOSPHATASE 74 U/L (46-116); ANION GAP 6 mmol/L (5-15); ASPARTATE AMINO TRANSFERASE 15 U/L (15-37); BILIRUBIN,TOTAL 0.4 MG/DL (0.2-1.0); BLOOD UREA NITROGEN 21 mg/dL (7-18); CALCIUM 9.2 MG/DL (8.5-10.1); CARBON DIOXIDE 29 MMOL/L (21-32); CHLORIDE 105 MMOL/L (98-107); CREATININE 1.1 MG/DL (0.55-1.30); POTASSIUM 4.9 MMOL/L (3.5-5.1); SODIUM 139 MMOL/L (136-145)
--- NOTE | 2018-11-12 06:48 | NUR ---
NURSE NOTES: Informed Dr. Berrios of WBC result 15.6
--- NOTE | 2018-11-12 07:15 | NUR ---
HAND-OFF: Report given to HOLLY Roger. Pt in stable condition.
--- NOTE | 2018-11-12 07:30 | NUR ---
NURSE NOTES: Pt lying in bed w/bed in lowest position and call light within reach. Pt A&Ox3; VSS but pt still tachy; and pt complains of severe penile pain -- will administer pain medication. IV site intact/asymptomatic w/IVF infusing; F/C & nephrostomy tubes intact/draining; LIDIA to bulb suction; and surgical patricia C/D/I & YUMIKO. Will continue to monitor.
[2018-11-12 08:00] VITALS: BP 127/79
[2018-11-12] MEDS: Nephrovite tab (Rena-Vite) ORAL SCH (08:08)
[2018-11-12] MEDS: BuPROPion XL 150mg tab ORAL SCH (08:08)
--- NOTE | 2018-11-12 08:47 | Nephrology Progress Note ---
Assessment/Plan Assessment/Plan: A/P 1. S/p prostatectomy, open, with resection of rectum and repositioning of bladder/ureter - per Urology/surg. Improved 2. Hyperkalemia- corrected post PCNTs. Draining well and Cr 1.1 3. Acute kidney injury secondary to multifactorial ATN- obstruction/contrast- induced nephropathy/NSAIDS Cr 1.1 Subjective Date patient seen: Nov 12, 2018 Time patient seen: 08:46 ROS Limited/Unobtainable: No Allergies: Coded Allergies: No Known Allergies (Unverified , 10/28/18) Subjective Patient in no distress and feeling better Objective Last 24 Hour Vital Signs Date Time Temp Pulse Resp B/P (MAP) Pulse Ox O2 Delivery O2 Flow Rate FiO2 11/12/18 08:00 99.6 106 20 127/79 (95) 98 11/12/18 04:00 98.9 101 20 122/71 (88) 98 11/12/18 00:00 99.9 108 20 115/75 (88) 98 11/11/18 21:00 Room Air 11/11/18 20:00 99.4 117 20 122/76 (91) 97 11/11/18 16:00 98.4 121 21 143/79 (100) 98 11/11/18 12:21 114 20 11/11/18 12:00 98.7 136 22 128/85 (99) 98 11/11/18 09:00 Room Air Intake and Output 11/11/18 11/12/18 18:59 06:59 Intake Total 700 ml 2560 ml Output Total 1513 ml Balance 700 ml 1047 ml Intake Oral 1460 ml IV Total 700 ml 1100 ml Output Urine Total 700 ml Drainage Total 813 ml # Bowel Movements 1 Laboratory Tests 11/12/18 04:45: White Blood Count 15.6H, Red Blood Count 3.02L, Hemoglobin 9.2L, Hematocrit 28.4L, Mean Corpuscular Volume 94, Mean Corpuscular Hemoglobin 30.6, Mean Corpuscular Hemoglobin Concent 32.5, Red Cell Distribution Width 12.6, Platelet Count 385, Mean Platelet Volume 7.5, Neutrophils (%) (Auto) 78.8H, Lymphocytes ( %) (Auto) 11.2L, Monocytes (%) (Auto) 7.0, Eosinophils (%) (Auto) 1.3, Basophils (%) (Auto) 1.6, Erythrocyte Sedimentation Rate 122H, Sodium Level 139 , Potassium Level 4.9, Chloride Level 105, Carbon Dioxide Level 29, Anion Gap 6 , Blood Urea Nitrogen 21H, Creatinine 1.1, Estimat Glomerular Filtration Rate > 60, Glucose Level 111H, Calcium Level 9.2, Total Bilirubin 0.4, Aspartate Amino Transf (AST/SGOT) 15, Alanine Aminotransferase (ALT/SGPT) 25, Alkaline Phosphatase 74, C-Reactive Protein, Quantitative 17.9H, Total Protein 6.9, Albumin 2.8L, Globulin 4.1, Albumin/Globulin Ratio 0.7L Height (Feet): 5 Height (Inches): 5.00 Weight (Pounds): 143 General Appearance: no apparent distress EENT: normal ENT inspection Neck: normal alignment, supple Cardiovascular: normal rate, regular rhythm Respiratory/Chest: lungs clear, normal breath sounds Abdomen: non tender, soft Edema: no edema noted Arm (L), no edema noted Arm (R), no edema noted Leg (L), no edema noted Leg (R), no edema noted Pedal (L), no edema noted Pedal (R), no edema noted Generalized Sarath Briceño MD Nov 12, 2018 08:47
--- NOTE | 2018-11-12 08:56 | Pulmonology Progress Note ---
Assessment/Plan Assessment/Plan IMPRESSION: This is a 68-year-old male with underlyin. Psychiatric disorder. 2. History of colon CA. 3. Prostate CA. 4. S/p prostatectomy, open, with resection of rectum and repositioning of bladder/ureter DISCUSSION: Seen by renal S/p bilateral perc nephrostomies Perc nephrostomy replacement R sided Will follow Discussed with urology DC planning per urology and surgery Await LIDIA drain cr level Antibiotics started Will consult ID Await CT abdomen Subjective Interval Events: Low grade fever noted; has leucocytosis Constitutional: Reports: no symptoms HEENT: Repors: no symptoms Respiratory: Reports: no symptoms Cardiovascular: Reports: no symptoms Gastrointestinal/Abdominal: Reports: no symptoms Allergies: Coded Allergies: No Known Allergies (Unverified , 10/28/18) Objective Last 24 Hour Vital Signs Date Time Temp Pulse Resp B/P (MAP) Pulse Ox O2 Delivery O2 Flow Rate FiO2 11/12/18 08:00 99.6 106 20 127/79 (95) 98 11/12/18 04:00 98.9 101 20 122/71 (88) 98 11/12/18 00:00 99.9 108 20 115/75 (88) 98 11/11/18 21:00 Room Air 11/11/18 20:00 99.4 117 20 122/76 (91) 97 11/11/18 16:00 98.4 121 21 143/79 (100) 98 11/11/18 12:21 114 20 11/11/18 12:00 98.7 136 22 128/85 (99) 98 11/11/18 09:00 Room Air Intake and Output 11/11/18 11/12/18 18:59 06:59 Intake Total 700 ml 2560 ml Output Total 1513 ml Balance 700 ml 1047 ml Intake Oral 1460 ml IV Total 700 ml 1100 ml Output Urine Total 700 ml Drainage Total 813 ml # Bowel Movements 1 General Appearance: no acute distress HEENT: normocephalic Respiratory/Chest: chest wall non-tender, lungs clear Cardiovascular: normal peripheral pulses, normal rate Abdomen: normal bowel sounds Laboratory Tests 11/12/18 04:45: White Blood Count 15.6H, Red Blood Count 3.02L, Hemoglobin 9.2L, Hematocrit 28.4L, Mean Corpuscular Volume 94, Mean Corpuscular Hemoglobin 30.6, Mean Corpuscular Hemoglobin Concent 32.5, Red Cell Distribution Width 12.6, Platelet Count 385, Mean Platelet Volume 7.5, Neutrophils (%) (Auto) 78.8H, Lymphocytes ( %) (Auto) 11.2L, Monocytes (%) (Auto) 7.0, Eosinophils (%) (Auto) 1.3, Basophils (%) (Auto) 1.6, Erythrocyte Sedimentation Rate 122H, Sodium Level 139 , Potassium Level 4.9, Chloride Level 105, Carbon Dioxide Level 29, Anion Gap 6 , Blood Urea Nitrogen 21H, Creatinine 1.1, Estimat Glomerular Filtration Rate > 60, Glucose Level 111H, Calcium Level 9.2, Total Bilirubin 0.4, Aspartate Amino Transf (AST/SGOT) 15, Alanine Aminotransferase (ALT/SGPT) 25, Alkaline Phosphatase 74, C-Reactive Protein, Quantitative 17.9H, Total Protein 6.9, Albumin 2.8L, Globulin 4.1, Albumin/Globulin Ratio 0.7L Current Medications Medications (Trade) Dose Ordered Sig/Juliano Route PRN Reason Start Time Stop Time Status Last Admin Dose Admin Acetaminophen (Tylenol) 650 mg Q4H PRN ORAL Mild Pain/Temp > 100.5 11/11/18 11:15 11/28/18 15:14 Barium Sulfate (Readi-Cat 2) 450 ml NOW PRN ORAL Radiology Procedure 11/11/18 10:00 11/13/18 09:46 Bupropion HCl (Wellbutrin XL) 300 mg DAILY ORAL 10/29/18 09:00 11/28/18 08:59 11/12/18 08:08 Hydromorphone HCl (Dilaudid) 1 mg Q3H PRN IVP Severe Pain (Pain Scale 7-10) 11/05/18 15:00 11/12/18 14:59 11/12/18 08:09 Iohexol (OMNIPAQUE-300 100ml) 100 ml NOW PRN INJ Radiology Procedure 11/11/18 10:00 11/13/18 09:46 Mirtazapine (Remeron) 30 mg QHS ORAL 10/28/18 21:00 11/27/18 20:59 11/11/18 22:11 Ondansetron HCl (Zofran) 4 mg Q6H PRN IVP Nausea & Vomiting 10/29/18 15:30 11/28/18 15:29 Pantoprazole (Protonix) 40 mg DAILY ORAL 11/05/18 09:00 12/05/18 08:59 11/12/18 08:09 Sodium Chloride 1,000 ml @ 100 mls/hr Q10H IV 11/11/18 11:00 12/11/18 10:59 11/12/18 06:30 Vitamin B Complex/ Vit C/Folic Acid (Nephrovite) 1 tab DAILY ORAL 11/05/18 09:00 12/05/18 08:59 11/12/18 08:08 [place] Peralta MD Nov 12, 2018 08:56
[2018-11-12 12:00] VITALS: BP 110/69
[2018-11-12] MEDS: Piperacillin/Tazobactam 3.375 GM in NS 110 ML IVPB SCH ×2 (13:58→21:57)
[2018-11-12 16:00] VITALS: BP 113/20
--- NOTE | 2018-11-12 16:45 | Infectious Diseases Prog Note ---
Assessment/Plan Assessment/Plan Ful consult dictated: A) 1) possible sepsis, leukocytosis, fevers, sirs, high risk for uti 2) pmh noted 3) allergies - nkda P) 1) zoysn 2) check cultures 3) monitor labs 4) thank you Subjective Allergies: Coded Allergies: No Known Allergies (Unverified , 10/28/18) Objective Vital Signs Last 24 Hour Vital Signs Date Time Temp Pulse Resp B/P (MAP) Pulse Ox O2 Delivery O2 Flow Rate FiO2 11/12/18 16:00 99.2 107 20 113/20 (51) 94 11/12/18 12:00 99.7 104 20 110/69 (83) 99 11/12/18 09:00 Room Air 11/12/18 08:00 99.6 106 20 127/79 (95) 98 11/12/18 04:00 98.9 101 20 122/71 (88) 98 11/12/18 00:00 99.9 108 20 115/75 (88) 98 11/11/18 21:00 Room Air 11/11/18 20:00 99.4 117 20 122/76 (91) 97 Height (Feet): 5 Height (Inches): 5.00 Weight (Pounds): 143 Laboratory Tests Test 11/12/18 04:45 White Blood Count 15.6 K/UL (4.8-10.8) H Red Blood Count 3.02 M/UL (4.70-6.10) L Hemoglobin 9.2 G/DL (14.2-18.0) L Hematocrit 28.4 % (42.0-52.0) L Mean Corpuscular Volume 94 FL (80-99) Mean Corpuscular Hemoglobin 30.6 PG (27.0-31.0) Mean Corpuscular Hemoglobin Concent 32.5 G/DL (32.0-36.0) Red Cell Distribution Width 12.6 % (11.6-14.8) Platelet Count 385 K/UL (150-450) Mean Platelet Volume 7.5 FL (6.5-10.1) Neutrophils (%) (Auto) 78.8 % (45.0-75.0) H Lymphocytes (%) (Auto) 11.2 % (20.0-45.0) L Monocytes (%) (Auto) 7.0 % (1.0-10.0) Eosinophils (%) (Auto) 1.3 % (0.0-3.0) Basophils (%) (Auto) 1.6 % (0.0-2.0) Erythrocyte Sedimentation Rate 122 MM/HR (0-20) H Sodium Level 139 MMOL/L (136-145) Potassium Level 4.9 MMOL/L (3.5-5.1) Chloride Level 105 MMOL/L (98-107) Carbon Dioxide Level 29 MMOL/L (21-32) Anion Gap 6 mmol/L (5-15) Blood Urea Nitrogen 21 mg/dL (7-18) H Creatinine 1.1 MG/DL (0.55-1.30) Estimat Glomerular Filtration Rate > 60 mL/min (>60) Glucose Level 111 MG/DL (74-106) H Calcium Level 9.2 MG/DL (8.5-10.1) Total Bilirubin 0.4 MG/DL (0.2-1.0) Aspartate Amino Transf (AST/SGOT) 15 U/L (15-37) Alanine Aminotransferase (ALT/SGPT) 25 U/L (12-78) Alkaline Phosphatase 74 U/L (46-116) C-Reactive Protein, Quantitative 17.9 mg/dL (0.00-0.90) H Total Protein 6.9 G/DL (6.4-8.2) Albumin 2.8 G/DL (3.4-5.0) L Globulin 4.1 g/dL Albumin/Globulin Ratio 0.7 (1.0-2.7) L Current Medications Medications (Trade) Dose Ordered Sig/Juliano Route PRN Reason Start Time Stop Time Status Last Admin Dose Admin Acetaminophen (Tylenol) 650 mg Q4H PRN ORAL Mild Pain/Temp > 100.5 11/11/18 11:15 11/28/18 15:14 Barium Sulfate (Readi-Cat 2) 450 ml NOW PRN ORAL Radiology Procedure 11/11/18 10:00 11/13/18 09:46 Bupropion HCl (Wellbutrin XL) 300 mg DAILY ORAL 10/29/18 09:00 11/28/18 08:59 11/12/18 08:08 Iohexol (OMNIPAQUE-300 100ml) 100 ml NOW PRN INJ Radiology Procedure 11/11/18 10:00 11/13/18 09:46 Mirtazapine (Remeron) 30 mg QHS ORAL 10/28/18 21:00 11/27/18 20:59 11/11/18 22:11 Ondansetron HCl (Zofran) 4 mg Q6H PRN IVP Nausea & Vomiting 10/29/18 15:30 11/28/18 15:29 Pantoprazole (Protonix) 40 mg DAILY ORAL 11/05/18 09:00 12/05/18 08:59 11/12/18 08:09 Piperacillin Sod/ Tazobactam Sod 3.375 gm/Sodium Chloride 110 ml @ 27.5 mls/hr EVERY 8 HOURS IVPB 11/12/18 14:00 11/17/18 13:59 11/12/18 13:58 Sodium Chloride 1,000 ml @ 100 mls/hr Q10H IV 11/11/18 11:00 12/11/18 10:59 11/12/18 06:30 Vitamin B Complex/ Vit C/Folic Acid (Nephrovite) 1 tab DAILY ORAL 11/05/18 09:00 12/05/18 08:59 11/12/18 08:08 Cayla Augustin MD Nov 12, 2018 16:45
--- NOTE | 2018-11-12 17:22 | Diagnostic Imaging Report ---
Indication: Status post radical prostatectomy. Bilateral nephrostomies Technique: Continuous helical transaxial imaging of the abdomen and pelvis was obtained from the lung bases to the pubic symphysis during intravenous contrast administration. Precontrast scan performed. Postcontrast arterial, venous, delayed and excretory phases obtained. Coronal 2-D reformats were also obtained. Study obtained in a Siemens sensation [address] Automatic Exposure Control was utilized. Total Dose length Product (DLP): [address] Dose Index Volume (CTDIvol): 94.4 mGy Comparison: None Findings: There is a collection of fluid and air posterior to the Mesa catheter /posterior urethra measuring about 3 x 4 x 5 cm. (AP, transverse, craniocaudal dimensions respectively). This is in the operative bed of the prostatectomy, posterior to the bladder and anterior to the rectum. On delayed excretory phase images, there is dense contrast entering this collection at the bladder urethral anastomosis (image #[id number], series 22) indicative of an anastomotic leak. There are bilateral percutaneous nephrostomy catheters which appear in good position. There is a double-J right ureteral stent which is in good position with the proximal end in the renal pelvis and the distal end in the urinary bladder. There is no hydronephrosis. Early images show appropriate symmetric bilateral nephrograms. There is symmetric bilateral excretion of contrast into the collecting systems. There is near complete opacification of the ureters bilaterally. The distal segment of the left ureter is not opacified by contrast material however the ureter is seen and appears to enter the inferior posterior base of the urinary bladder. The right ureter enters the lateral aspect of the right bladder wall. There is moderate thickening of the urinary bladder wall. There is a Mesa catheter present which appears to be in good position within the bladder lumen. The bladder is relatively nondistended. Anterior skin patricia are noted. There is a surgical drain in the anterior part of the lower pelvis just above the bladder lumen. Bowel gas pattern is nonobstructive. The liver and spleen, pancreas and gallbladder, adrenal glands appear unremarkable. Penile prosthesis noted. IMPRESSION: 3 x 4 x 5 cm collection containing excreted contrast material posterior to the posterior urethra/Mesa catheter consistent with a urinoma or anastomotic leak. Status post recent prostatectomy. Bilateral percutaneous nephrostomy is in good position. Right double-J ureteral stent in good position. No hydronephrosis or obstruction. Salient aspects of this report were left on voicemail to Dr. Mickey Obando, Urology at 5:15pm, 11/12/[address] scanner at [facility] is accredited by the [employer] and the scans are performed using dose optimization techniques as appropriate to a performed exam including Automatic Exposure control.
[2018-11-12 17:39] LABS: APPEARANCE,URINE CLOUDY; BILIRUBIN, URINE NEGATIVE (NEGATIVE); COLOR,URINE PALE YELLOW; GLUCOSE, URINE (UA) NEGATIVE (NEGATIVE); KETONES,URINE NEGATIVE (NEGATIVE); LEUKOCYTE ESTERASE ,URINE 3+ (NEGATIVE); NITRITE,URINE NEGATIVE (NEGATIVE); PH,URINE 6 (4.5-8.0); PROTEIN,URINE 3+ (NEGATIVE); UROBILINOGEN,URINE NORMAL MG/DL (0.0-1.0)
--- NOTE | 2018-11-12 19:20 | NUR ---
NURSE NOTES: Report taken from HOLLY James. Patient is awake and in bed, A&Ox4. No signs of distress on room air. Having complaints of constant pain, primarily at surgical incision sites, 10/21. Skin intact, nephro tube surgical sites c/d/i, patricia on abdomen open to air. IV site patent, running NS at 100mls/hr. Bilateral pigtail catheters in place, patent, draining yellow urine. Duong c/d/i, draining to gravity. LIDIA drain c/d/i. Patient able to ambulate with assistance. Bed in lowest position, call light within reach. Addendum: 11/12/18 at 2126 by Gumaro Hylton RN Urine in duong collection bag is cloudy, UA sent previously during day shift
--- NOTE | 2018-11-12 19:23 | NUR ---
HAND-OFF: Report given to HOLLY Naik.
--- NOTE | 2018-11-12 19:49 | Surgery Progress Note ---
Surgery Progress Note Subjective Additional Comments low grade fevers leukocytosis CT with leak Objective Last 24 Hour Vital Signs Date Time Temp Pulse Resp B/P (MAP) Pulse Ox O2 Delivery O2 Flow Rate FiO2 11/12/18 16:00 99.2 107 20 113/20 (51) 94 11/12/18 12:00 99.7 104 20 110/69 (83) 99 11/12/18 09:00 Room Air 11/12/18 08:00 99.6 106 20 127/79 (95) 98 11/12/18 04:00 98.9 101 20 122/71 (88) 98 11/12/18 00:00 99.9 108 20 115/75 (88) 98 11/11/18 21:00 Room Air 11/11/18 20:00 99.4 117 20 122/76 (91) 97 I&O Intake and Output 11/11/18 11/12/18 19:00 07:00 Intake Total 700 ml 2610 ml Output Total 1513 ml Balance 700 ml 1097 ml Intake Oral 1460 ml IV Total 700 ml 1150 ml Output Urine Total 700 ml Drainage Total 813 ml # Bowel Movements 1 Dressing: dry Wound: clean Drains: other Cardiovascular: RSR Respiratory: clear Abdomen: soft, non-tender, present bowel sounds, non-distended Extremities: no tenderness, no cyanosis Laboratory Tests Test 11/12/18 04:45 11/12/18 17:15 11/12/18 18:15 White Blood Count 15.6 K/UL (4.8-10.8) H Red Blood Count 3.02 M/UL (4.70-6.10) L Hemoglobin 9.2 G/DL (14.2-18.0) L Hematocrit 28.4 % (42.0-52.0) L Mean Corpuscular Volume 94 FL (80-99) Mean Corpuscular Hemoglobin 30.6 PG (27.0-31.0) Mean Corpuscular Hemoglobin Concent 32.5 G/DL (32.0-36.0) Red Cell Distribution Width 12.6 % (11.6-14.8) Platelet Count 385 K/UL (150-450) Mean Platelet Volume 7.5 FL (6.5-10.1) Neutrophils (%) (Auto) 78.8 % (45.0-75.0) H Lymphocytes (%) (Auto) 11.2 % (20.0-45.0) L Monocytes (%) (Auto) 7.0 % (1.0-10.0) Eosinophils (%) (Auto) 1.3 % (0.0-3.0) Basophils (%) (Auto) 1.6 % (0.0-2.0) Erythrocyte Sedimentation Rate 122 MM/HR (0-20) H Sodium Level 139 MMOL/L (136-145) Potassium Level 4.9 MMOL/L (3.5-5.1) Chloride Level 105 MMOL/L (98-107) Carbon Dioxide Level 29 MMOL/L (21-32) Anion Gap 6 mmol/L (5-15) Blood Urea Nitrogen 21 mg/dL (7-18) H Creatinine 1.1 MG/DL (0.55-1.30) Estimat Glomerular Filtration Rate > 60 mL/min (>60) Glucose Level 111 MG/DL (74-106) H Calcium Level 9.2 MG/DL (8.5-10.1) Total Bilirubin 0.4 MG/DL (0.2-1.0) Aspartate Amino Transf (AST/SGOT) 15 U/L (15-37) Alanine Aminotransferase (ALT/SGPT) 25 U/L (12-78) Alkaline Phosphatase 74 U/L (46-116) C-Reactive Protein, Quantitative 17.9 mg/dL (0.00-0.90) H Total Protein 6.9 G/DL (6.4-8.2) Albumin 2.8 G/DL (3.4-5.0) L Globulin 4.1 g/dL Albumin/Globulin Ratio 0.7 (1.0-2.7) L Urine Color Pale yellow Urine Appearance Cloudy Urine pH 6 (4.5-8.0) Urine Specific [place] 1.010 (1.005-1.035) Urine Protein 3+ (NEGATIVE) H Urine Glucose (UA) Negative (NEGATIVE) Urine Ketones Negative (NEGATIVE) Urine Blood 5+ (NEGATIVE) H Urine Nitrite Negative (NEGATIVE) Urine Bilirubin Negative (NEGATIVE) Urine Urobilinogen Normal MG/DL (0.0-1.0) Urine Leukocyte Esterase 3+ (NEGATIVE) H Urine RBC Tntc /HPF (0 - 0) H Urine WBC Tntc /HPF (0 - 0) H Urine Squamous Epithelial Cells None /LPF (NONE/OCC) Urine Bacteria Many /HPF (NONE) H Lactic Acid Level 1.30 mmol/L (0.4-2.0) Plan Problems: (1) Abdominal pain Assessment & Plan: 68M s/p recovering abd pain labs noted exam as above -BILATERAL NEPHROSTOMY TUBES PLACED LT: LOCKING 8FT PIGTAIL CATHETER RT: NON LOCKING 8FT PIGTAIL CATHETER KUB identified potential malpositioning of the right nephrostomy tube with plans for replacement with advancement by radiology. alvino drain output improved nephro tube working well abd exam benign and much improved 3 x 4 x 5 cm collection containing excreted contrast material posterior to the posterior urethra/Mesa catheter consistent with a urinoma or anastomotic leak. Status post recent prostatectomy. Bilateral percutaneous nephrostomy is in good position. Right double-J ureteral stent in good position. No hydronephrosis or obstruction. -hold on drain removal -Appreciate ID input for Abx -will monitor abd exam -diet as tolerated -iv fluids -dressings -drain care -nephrostomy tube care and reposition done -abx -will follow with exam and recs thank you for allowing me to participate in patients care. (2) Prostate CA Giacomo Berrios Nov 12, 2018 19:49
[2018-11-12 20:00] VITALS: BP 119/72
--- NOTE | 2018-11-12 20:30 | Consultation ---
DATE OF CONSULTATION: 11/12/2018 INFECTIOUS DISEASES CONSULTATION CONSULTING PHYSICIAN: Cayla Augustin M.D. ATTENDING PHYSICIAN: Mickey Obando M.D. REFERRING PHYSICIAN: Mt Peralta M.D. REASON FOR CONSULTATION: Possible sepsis, leukocytosis, fevers, SIRS criteria. CHIEF COMPLAINT: The patient's chief complaint coming to the hospital is prostate cancer and prostatectomy. HISTORY OF PRESENT ILLNESS: The patient is a very pleasant 68-year-old male who comes into [facility] for history of prostate cancer, requiring prostatectomy. The patient on October 29, 2018 had a radical retropubic prostatectomy with stent placement in the right kidney. The patient now was noted to have white count of 15.6 and has fevers. He has a Mesa catheter. The patient is at risk for urinary tract infection. Infectious Disease consultation requested for antibiotic management. The patient with possible sepsis, elevated white count, fevers, and SIRS criteria. The patient was empirically started on Zosyn which I agree with. MAR was noted. Orders were noted. Notes were reviewed. REVIEW OF SYSTEMS: CONSTITUTIONAL: The patient has generalized fatigue, but no new focal weakness. He is responsive and alert. He does have fevers. He has had consistent low-grade fevers of 99.9 and 99.7. He is tachycardic. HEAD AND NECK: No head pain or neck pain. CARDIAC: No chest pain. No palpitations. GASTROINTESTINAL: No nausea, vomiting, abdominal pain, diarrhea. GENITOURINARY: He has a Mesa. No CVA tenderness. PULMONARY: No congestion or shortness of breath. Mild secretions. SKIN: No rashes or itching. EXTREMITIES: No extremity pain. NEUROLOGIC: No seizures. No weight loss, night sweats, dysphagia, thrush, change in vision, headache mentioned. PAST MEDICAL HISTORY: The patient's past medical history includes the following. The patient has a past medical history of colon carcinoma, psychiatric disorder, prostate cancer status post prostatectomy on 10/29/2018. The patient also has renal failure and anemia, history of acute kidney injury, history of nephrostomy tubes. No history of diabetes or hypertension mentioned. ALLERGIES: No known drug allergies. No antibiotic allergies. SOCIAL HISTORY: Negative for smoking, alcohol, or drug use. FAMILY HISTORY: Noncontributory. Negative for tuberculosis or cancer. MEDICATIONS: Upon reviewing the MAR, the patient is on following medications. The patient is Zosyn, acetaminophen. The patient on barium sulfate. The patient is on , pantoprazole, Zofran, bupropion, mirtazapine. Outside medications were noted and reconciliated. Antibiotics, he is on Zosyn. PHYSICAL EXAMINATION: VITAL SIGNS: Temperature 99.9, pulse rate is as high as 108, respiratory rate 20, blood pressure 113/51, and saturation 94% on room air. GENERAL: Alert and responsive, no distress. No shortness of breath noted. HEAD AND NECK: Oral exam, no thrush. Eye exam, no icterus. Normocephalic. Neck is supple. No JVD. HEART: Regular. No gallop or murmur. No friction rub. Tachycardic. ABDOMEN: Soft. Positive bowel sounds. Nontender. LUNGS: Fairly clear bilaterally. No rhonchi or rales. SKIN: No rash. MUSCULOSKELETAL: No effusions. Legs are cellulitis. No septic arthritis. PERIPHERAL VASCULAR: No gangrene. GENITOURINARY: He has a Mesa catheter. Urine is cloudy. LINE SITES: Without phlebitis. NEUROLOGIC: Generalized weakness, alert, responsive, nonfocal. SKIN: No other rash. LABORATORY AND DIAGNOSTIC DATA: Laboratory data as follows. Cultures have been ordered and pending. MRSA screen is negative. BUN is 21, creatinine 1.1. Creatinine was high as 2.4 and now is 1.1. Currently, white count 15.6, hemoglobin 9.2. Cultures are pending. UA has been ordered. Imaging studies, CT scan of the abdomen and pelvis was noted. I will order chest x-ray. ASSESSMENT AND PLAN: 1. The patient has elevated white count, fevers, tachycardia, possible sepsis. High risk for urinary tract infection with Mesa catheter. The patient is status post prostatectomy for prostate cancer. At this time, I agree with empiric Zosyn for gram-negative and gram-positive coverage. Continue Zosyn for possible sepsis. Check cultures, labs, and chest x-ray. Check CT scan of the abdomen and pelvis. Zosyn also will cover urinary tract infection if that is the case. 2. Sepsis, SIRS criteria. We will check lactic acid level. Continue Zosyn for now. 3. The patient has history of prostate cancer status post prostatectomy. 4. History of colon cancer, history of chemotherapy. 5. Psychiatric disease, unclear which type. 6. Anemia. 7. Acute kidney injury. 8. Elevated sedimentation rate noted 122. 9. No history of diabetes or hypertension. 10. The patient has history of chemotherapy for colon cancer. 11. No known drug allergies. 12. Social history is negative. 13. Family history is noncontributory. 14. MAR was noted. 15. Case discussed with RN. 16. Case discussed with the patient. 17. Continue treatment per primary consultants. Cayla Augustin M.D. DR: Ren JOB#: [id number] CC:
[2018-11-12] MEDS: Vancomycin 1gm/D5W 275ml IVPB SCH ×2 (21:57)
[2018-11-13 00:30] VITALS: BP 127/80
[2018-11-13] MEDS: HYDROmorphone 1mg/ml Carpuject IVP PRN ×4 (02:43→20:49)
[2018-11-13 04:36] VITALS: BP 120/89
[2018-11-13] MEDS: Piperacillin/Tazobactam 3.375 GM in NS 110 ML IVPB SCH ×3 (05:47→22:10)
[2018-11-13 06:45] LABS: BASOPHILS % (AUTO) 1.3 % (0.0-2.0); EOSINOPHILS % (AUTO) 2.4 % (0.0-3.0); HEMOGLOBIN 8.8 G/DL (14.2-18.0); LYMPHOCYTES % (AUTO) 16.7 % (20.0-45.0); MEAN CORPUSCULAR VOLUME 94 FL (80-99); MONOCYTES % (AUTO) 5.2 % (1.0-10.0); NEUTROPHILS % (AUTO) 74.4 % (45.0-75.0); PLATELET COUNT 353 K/UL (150-450); RED BLOOD COUNT 2.87 M/UL (4.70-6.10); RED CELL DISTRIBUTION WIDTH 12.7 % (11.6-14.8); WHITE BLOOD COUNT 10.3 K/UL (4.8-10.8)
[2018-11-13 06:47] LABS: ALANINE AMINOTRANSFERASE 17 U/L (12-78); ALBUMIN 2.5 G/DL (3.4-5.0); ALBUMIN/GLOBULIN RATIO 0.6 (1.0-2.7); ALKALINE PHOSPHATASE 74 U/L (46-116); ANION GAP 11 mmol/L (5-15); ASPARTATE AMINO TRANSFERASE 12 U/L (15-37); BILIRUBIN,TOTAL 0.3 MG/DL (0.2-1.0); BLOOD UREA NITROGEN 13 mg/dL (7-18); CALCIUM 9.2 MG/DL (8.5-10.1); CARBON DIOXIDE 26 MMOL/L (21-32); CHLORIDE 104 MMOL/L (98-107); POTASSIUM 4.3 MMOL/L (3.5-5.1); SODIUM 141 MMOL/L (136-145)
--- NOTE | 2018-11-13 07:17 | NUR ---
Nurses notes Report given to ALVIN
--- NOTE | 2018-11-13 07:20 | NUR ---
NURSE NOTES: Received report from HOLLY Mueller. Rounding done with outgoing nurse. Pt a/o x 3, having breakfast. No respiratory distress noted. c/o pain as 10/10. Pain medicine will be given as MD ordered. LIDIA is in placed. Bilateral nephrostomy is in placed. Mesa catheter is patent. Rt FA IV access is patent. Bed in lowest position, call light within reach. Will continue to monitor.
[2018-11-13 08:00] VITALS: BP 117/66
[2018-11-13] MEDS: Nephrovite tab (Rena-Vite) ORAL SCH (08:45)
[2018-11-13] MEDS: BuPROPion XL 150mg tab ORAL SCH (08:45)
--- NOTE | 2018-11-13 08:54 | NUR ---
RADIOLOGY DEPT., CHEST X-RAY DONE.-P.DYE
--- NOTE | 2018-11-13 09:30 | Pulmonology Progress Note ---
Assessment/Plan Assessment/Plan IMPRESSION: This is a 68-year-old male with underlyin. Psychiatric disorder. 2. History of colon CA. 3. Prostate CA. 4. S/p prostatectomy, open, with resection of rectum and repositioning of bladder/ureter DISCUSSION: Seen by renal S/p bilateral perc nephrostomies Perc nephrostomy replacement R sided Will follow Discussed with urology DC planning per urology and surgery Await LIDIA drain cr level Antibiotics started Seen by ID Will review CT abdomen Subjective Interval Events: None new Constitutional: Reports: no symptoms HEENT: Repors: no symptoms Respiratory: Reports: no symptoms Cardiovascular: Reports: no symptoms Gastrointestinal/Abdominal: Reports: no symptoms Genitourinary: Reports: no symptoms Allergies: Coded Allergies: No Known Allergies (Unverified , 10/28/18) Objective Last 24 Hour Vital Signs Date Time Temp Pulse Resp B/P (MAP) Pulse Ox O2 Delivery O2 Flow Rate FiO2 11/13/18 08:00 99.2 103 117/66 (83) 11/13/18 04:36 98.9 96 120/89 (99) 11/13/18 00:30 98.9 100 19 127/80 (96) 11/12/18 21:00 Room Air 11/12/18 20:00 97.0 106 119/72 (88) 11/12/18 16:00 99.2 107 20 113/20 (51) 94 11/12/18 12:00 99.7 104 20 110/69 (83) 99 Intake and Output 11/12/18 11/13/18 19:00 07:00 Intake Total 1322.5 ml Output Total 1465 ml 1530 ml Balance -142.5 ml -1530 ml Intake Oral 240 ml IV Total 1082.5 ml Output Urine Total 680 ml 800 ml Drainage Total 785 ml 730 ml General Appearance: no acute distress HEENT: normocephalic Respiratory/Chest: chest wall non-tender, lungs clear Cardiovascular: normal peripheral pulses, normal rate Abdomen: normal bowel sounds Microbiology Date/Time Source Procedure Growth Status 11/11/18 23:00 Indwelling Cath Urine Culture - Preliminary Gram Negative Ismael Resulted Laboratory Tests 11/12/18 17:15: Urine Color Pale yellow, Urine Appearance Cloudy, Urine pH 6, Urine Specific [place] 1.010, Urine Protein 3+H, Urine Glucose (UA) Negative, Urine Ketones Negative, Urine Blood 5+H, Urine Nitrite Negative, Urine Bilirubin Negative, Urine Urobilinogen Normal, Urine Leukocyte Esterase 3+H, Urine RBC TntcH, Urine WBC TntcH, Urine Squamous Epithelial Cells None, Urine Bacteria ManyH 11/12/18 18:15: Lactic Acid Level 1.30 11/13/18 05:10: White Blood Count 10.3, Red Blood Count 2.87L, Hemoglobin 8.8L, Hematocrit 27.0L , Mean Corpuscular Volume 94, Mean Corpuscular Hemoglobin 30.6, Mean Corpuscular Hemoglobin Concent 32.6, Red Cell Distribution Width 12.7, Platelet Count 353, Mean Platelet Volume 8.2, Neutrophils (%) (Auto) 74.4, Lymphocytes (% ) (Auto) 16.7L, Monocytes (%) (Auto) 5.2, Eosinophils (%) (Auto) 2.4, Basophils (%) (Auto) 1.3, Sodium Level 141, Potassium Level 4.3, Chloride Level 104, Carbon Dioxide Level 26, Anion Gap 11, Blood Urea Nitrogen 13, Creatinine 1.0, Estimat Glomerular Filtration Rate > 60, Glucose Level 92, Calcium Level 9.2, Total Bilirubin 0.3, Aspartate Amino Transf (AST/SGOT) 12L, Alanine Aminotransferase (ALT/SGPT) 17, Alkaline Phosphatase 74, Total Protein 6.8, Albumin 2.5L, Globulin 4.3, Albumin/Globulin Ratio 0.6L Current Medications Medications (Trade) Dose Ordered Sig/Juliano Route PRN Reason Start Time Stop Time Status Last Admin Dose Admin Acetaminophen (Tylenol) 650 mg Q4H PRN ORAL Mild Pain/Temp > 100.5 11/11/18 11:15 11/28/18 15:14 Barium Sulfate (Readi-Cat 2) 450 ml NOW PRN ORAL Radiology Procedure 11/11/18 10:00 11/13/18 09:46 Bupropion HCl (Wellbutrin XL) 300 mg DAILY ORAL 10/29/18 09:00 11/28/18 08:59 11/13/18 08:45 Hydromorphone HCl (Dilaudid) 1 mg Q3H PRN IVP Severe Pain (Pain Scale 7-10) 11/12/18 20:30 11/19/18 20:29 11/13/18 07:44 Iohexol (OMNIPAQUE-300 100ml) 100 ml NOW PRN INJ Radiology Procedure 11/11/18 10:00 11/13/18 09:46 Mirtazapine (Remeron) 30 mg QHS ORAL 10/28/18 21:00 11/27/18 20:59 11/12/18 20:46 Ondansetron HCl (Zofran) 4 mg Q6H PRN IVP Nausea & Vomiting 10/29/18 15:30 11/28/18 15:29 Pantoprazole (Protonix) 40 mg DAILY ORAL 11/05/18 09:00 12/05/18 08:59 11/13/18 08:45 Piperacillin Sod/ Tazobactam Sod 3.375 gm/Sodium Chloride 110 ml @ 27.5 mls/hr EVERY 8 HOURS IVPB 11/12/18 14:00 11/17/18 13:59 11/13/18 05:47 Sodium Chloride 1,000 ml @ 100 mls/hr Q10H IV 11/11/18 11:00 12/11/18 10:59 11/13/18 03:11 Vancomycin HCl (Vanco rx to dose) 1 ea DAILY PRN MISC Per rx protocol 11/12/18 20:00 12/12/18 19:59 Vancomycin HCl 1 gm/Dextrose 275 ml @ 183.708 mls/hr Q12HR@1000,2200 IVPB 11/12/18 22:00 11/17/18 21:59 11/12/18 21:57 Vitamin B Complex/ Vit C/Folic Acid (Nephrovite) 1 tab DAILY ORAL 11/05/18 09:00 12/05/18 08:59 11/13/18 08:45 Mt Peralta MD Nov 13, 2018 09:30
[2018-11-13] MEDS: Vancomycin 1gm/D5W 275ml IVPB SCH ×4 (10:08→22:10)
--- NOTE | 2018-11-13 11:26 | Diagnostic Imaging Report ---
Indication: Dyspnea Comparison: 10/28/2018 A single view chest radiograph was obtained. Findings: There is slightly increased density of the right suprahilar region but this was seen previously as well. Heart size is normal. There is no infiltrate or significant change appreciated. There is evidence of an old right distal clavicle fracture. Bilateral nephrostomies noted. IMPRESSION: No acute disease or significant change
[2018-11-13 12:00] VITALS: BP 119/78
--- NOTE | 2018-11-13 15:11 | NUR ---
P.T WEEKLY PROGRESS NOTES: PATIENT RESPONDED WELL AND HAS MADE SIGNIFICANT PROGRESS DURING THE COURSE OF THERAPY SESSIONS. PATIENT IS CURRENTLY INDEPENDENT IN BED MOBILITY AND TRANSFERS. PATIENT IF LESS OR NOT IN PAIN IS ABLE TO AMBULATE SAFELY AND INDEPENDENTLY 100-300 FEET W/O AN AD DEVICES NEEDED. PATIENT IS ALSO INDEPENDENT IN PERFORMING HEP INSTRUCTED WITH EMPHASIS ON TRUNK EXTENSIONS/SCAPULAR PRO/RETRACTION TO INCREASE POSTURAL ALIGNMENT AND AWARENESS. PATIENT HAS MET ESTABLISHED GOALS TOWARDS FUNCTIONAL INDEPENDENCE. SKILLED P.T SERVICES NO LONGER NEEDED AT THIS TIME. INSTRUCTED NURSING TO ENCOURAGE PATIENT FOR DAILY OOB ACTIVITIES I.E AMBULATION AND UP IN CHAIR TOLERATED. DC P.T SERVICES.
[2018-11-13 16:00] VITALS: BP 111/70
--- NOTE | 2018-11-13 19:15 | NUR ---
NURSE NOTES: Report taken from HOLLY Bruno. Patient is in bed, asleep. Arousable by name and light touch, A&Ox4. No signs of distress on room air. Having pain central to tube insertion sites, and surgical site, 07/21. Mesa draining to gravity, cloudy/light cody urine. Nephro tubes intact to uracil bags, patent, continue to monitor output. IV site c/d/i, running NS @ 100mls/hr. Skin intact, encourage patient to get out of bed. Bed in lowest position, call light within reach.
--- NOTE | 2018-11-13 19:23 | Surgery Progress Note ---
Surgery Progress Note Subjective Additional Comments on abx leukocytosis resolved labs noted exam stable comfortable tolerating diet Objective Last 24 Hour Vital Signs Date Time Temp Pulse Resp B/P (MAP) Pulse Ox O2 Delivery O2 Flow Rate FiO2 11/13/18 12:00 98.8 101 19 119/78 (92) 98 11/13/18 09:00 Room Air 11/13/18 08:00 99.2 103 117/66 (83) 11/13/18 04:36 98.9 96 120/89 (99) 11/13/18 00:30 98.9 100 19 127/80 (96) 11/12/18 21:00 Room Air 11/12/18 20:00 97.0 106 119/72 (88) I&O Intake and Output 11/12/18 11/13/18 19:00 07:00 Intake Total 1322.5 ml Output Total 1465 ml 1530 ml Balance -142.5 ml -1530 ml Intake Oral 240 ml IV Total 1082.5 ml Output Urine Total 680 ml 800 ml Drainage Total 785 ml 730 ml Dressing: dry Wound: clean Drains: other Cardiovascular: RSR Respiratory: clear Abdomen: soft, flat, non-tender, present bowel sounds Extremities: no tenderness, no cyanosis Laboratory Tests Test 11/13/18 05:10 White Blood Count 10.3 K/UL (4.8-10.8) Red Blood Count 2.87 M/UL (4.70-6.10) L Hemoglobin 8.8 G/DL (14.2-18.0) L Hematocrit 27.0 % (42.0-52.0) L Mean Corpuscular Volume 94 FL (80-99) Mean Corpuscular Hemoglobin 30.6 PG (27.0-31.0) Mean Corpuscular Hemoglobin Concent 32.6 G/DL (32.0-36.0) Red Cell Distribution Width 12.7 % (11.6-14.8) Platelet Count 353 K/UL (150-450) Mean Platelet Volume 8.2 FL (6.5-10.1) Neutrophils (%) (Auto) 74.4 % (45.0-75.0) Lymphocytes (%) (Auto) 16.7 % (20.0-45.0) L Monocytes (%) (Auto) 5.2 % (1.0-10.0) Eosinophils (%) (Auto) 2.4 % (0.0-3.0) Basophils (%) (Auto) 1.3 % (0.0-2.0) Sodium Level 141 MMOL/L (136-145) Potassium Level 4.3 MMOL/L (3.5-5.1) Chloride Level 104 MMOL/L (98-107) Carbon Dioxide Level 26 MMOL/L (21-32) Anion Gap 11 mmol/L (5-15) Blood Urea Nitrogen 13 mg/dL (7-18) Creatinine 1.0 MG/DL (0.55-1.30) Estimat Glomerular Filtration Rate > 60 mL/min (>60) Glucose Level 92 MG/DL (74-106) Calcium Level 9.2 MG/DL (8.5-10.1) Total Bilirubin 0.3 MG/DL (0.2-1.0) Aspartate Amino Transf (AST/SGOT) 12 U/L (15-37) L Alanine Aminotransferase (ALT/SGPT) 17 U/L (12-78) Alkaline Phosphatase 74 U/L (46-116) Total Protein 6.8 G/DL (6.4-8.2) Albumin 2.5 G/DL (3.4-5.0) L Globulin 4.3 g/dL Albumin/Globulin Ratio 0.6 (1.0-2.7) L Plan Problems: (1) Abdominal pain Assessment & Plan: 68M s/p recovering abd pain labs noted exam as above -BILATERAL NEPHROSTOMY TUBES PLACED LT: LOCKING 8FT PIGTAIL CATHETER RT: NON LOCKING 8FT PIGTAIL CATHETER KUB identified potential malpositioning of the right nephrostomy tube with plans for replacement with advancement by radiology. alvino drain output improved nephro tube working well abd exam benign and much improved 3 x 4 x 5 cm collection containing excreted contrast material posterior to the posterior urethra/Mesa catheter consistent with a urinoma or anastomotic leak. Status post recent prostatectomy. Bilateral percutaneous nephrostomy is in good position. Right double-J ureteral stent in good position. No hydronephrosis or obstruction. -hold on drain removal -Appreciate ID input for Abx -will monitor abd exam -diet as tolerated -iv fluids -dressings -drain care -nephrostomy tube care and reposition done -abx -will follow with exam and recs thank you for allowing me to participate in patients care. (2) Prostate CA Giacomo Berrios Nov 13, 2018 19:23
--- NOTE | 2018-11-13 19:42 | NUR ---
HAND-OFF: Report given to HOLLY Peraza. Pt is stable.
[2018-11-13 20:00] VITALS: BP 114/72
--- NOTE | 2018-11-13 23:16 | NUR ---
HAND-OFF: Report given to HOLLY Salgado. Patient is aslee, VS stable.
--- NOTE | 2018-11-13 23:20 | NUR ---
NURSE NOTES: Received pt from HOLLY Salgado to continue care. AAO x 4, on room air. Pt c/o pain 10/10 on abd. LIDIA intact. Bilateral Nephrostomy intact. Mesa intact. Two IV sites intact and patent. Bed lowest position, locked, alarm on, call light within reach. Will continue to monitor.
[2018-11-14] VITALS: BP 144/85
[2018-11-14] MEDS: HYDROmorphone 1mg/ml Carpuject IVP PRN ×5 (00:56→23:20)
[2018-11-14 04:00] VITALS: BP 140/93
[2018-11-14] MEDS: Piperacillin/Tazobactam 3.375 GM in NS 110 ML IVPB SCH ×2 (05:16→14:30)
--- NOTE | 2018-11-14 07:14 | NUR ---
NURSE NOTES: Received report from HOLLY Dutton. Rounding done with outgoing nurse. Pt a/o x 3, in bed. Denies any pain at this time. Nephrostomy bag is patent, yellowish color. LIDIA drain is is placed, serous. Mesa catheter is patent, yellowish color. Will continue to monitor.
--- NOTE | 2018-11-14 07:15 | NUR ---
HAND-OFF: Report given to HOLLY Bruno.
[2018-11-14 08:00] VITALS: BP 125/76
--- NOTE | 2018-11-14 08:19 | Pulmonology Progress Note ---
Assessment/Plan Assessment/Plan IMPRESSION: This is a 68-year-old male with underlyin. Psychiatric disorder. 2. History of colon CA. 3. Prostate CA. 4. S/p prostatectomy, open, with resection of rectum and repositioning of bladder/ureter DISCUSSION: Seen by renal S/p bilateral perc nephrostomies Perc nephrostomy replacement R sided Will follow Discussed with urology DC planning per urology and surgery CT reviewed; fluid collection noted Fever and leucocytosis; on abx per ID Subjective Interval Events: None new reported Constitutional: Reports: no symptoms HEENT: Repors: no symptoms Respiratory: Reports: no symptoms Cardiovascular: Reports: no symptoms Gastrointestinal/Abdominal: Reports: no symptoms Allergies: Coded Allergies: No Known Allergies (Unverified , 10/28/18) Objective Last 24 Hour Vital Signs Date Time Temp Pulse Resp B/P (MAP) Pulse Ox O2 Delivery O2 Flow Rate FiO2 11/14/18 04:00 99.3 110 18 140/93 (109) 97 11/14/18 00:00 99.0 109 20 144/85 (104) 98 11/13/18 21:00 Room Air 11/13/18 20:00 99.0 104 20 114/72 (86) 97 11/13/18 16:00 99.2 106 19 111/70 (84) 98 11/13/18 12:00 98.8 101 19 119/78 (92) 98 11/13/18 09:00 Room Air Intake and Output 11/13/18 11/14/18 19:00 07:00 Intake Total 2160.0 ml 727.5 ml Output Total 1465 ml 1805 ml Balance 695.0 ml -1077.5 ml Intake Oral 950 ml IV Total 1210.0 ml 727.5 ml Output Urine Total 550 ml 800 ml Drainage Total 915 ml 1005 ml General Appearance: no acute distress HEENT: normocephalic Respiratory/Chest: chest wall non-tender, lungs clear Cardiovascular: normal peripheral pulses, normal rate Abdomen: normal bowel sounds Extremities: no cyanosis Microbiology Date/Time Source Procedure Growth Status 11/12/18 18:30 Blood Blood Culture - Preliminary NO GROWTH AFTER 24 HOURS Resulted 11/12/18 18:15 Blood Blood Culture - Preliminary NO GROWTH AFTER 24 HOURS Resulted 11/12/18 17:15 Urine,Clean Catch Urine Culture - Preliminary Gram Negative Ismael Resulted 11/11/18 23:00 Indwelling Cath Urine Culture - Final Escherichia Coli Complete Current Medications Medications (Trade) Dose Ordered Sig/Juliano Route PRN Reason Start Time Stop Time Status Last Admin Dose Admin Acetaminophen (Tylenol) 650 mg Q6H PRN ORAL Mild Pain/Temp > 100.5 11/13/18 20:45 12/13/18 20:44 Bupropion HCl (Wellbutrin XL) 300 mg DAILY ORAL 10/29/18 09:00 11/28/18 08:59 11/13/18 08:45 Hydromorphone HCl (Dilaudid) 1 mg Q3H PRN IVP Severe Pain (Pain Scale 7-10) 11/12/18 20:30 11/19/18 20:29 11/14/18 04:30 Mirtazapine (Remeron) 30 mg QHS ORAL 10/28/18 21:00 11/27/18 20:59 11/13/18 20:50 Ondansetron HCl (Zofran) 4 mg Q6H PRN IVP Nausea & Vomiting 10/29/18 15:30 11/28/18 15:29 Pantoprazole (Protonix) 40 mg DAILY ORAL 11/05/18 09:00 12/05/18 08:59 11/13/18 08:45 Piperacillin Sod/ Tazobactam Sod 3.375 gm/Sodium Chloride 110 ml @ 27.5 mls/hr EVERY 8 HOURS IVPB 11/12/18 14:00 11/17/18 13:59 11/14/18 05:16 Sodium Chloride 1,000 ml @ 100 mls/hr Q10H IV 11/11/18 11:00 12/11/18 10:59 11/13/18 23:17 Vancomycin HCl (Vanco rx to dose) 1 ea DAILY PRN MISC Per rx protocol 11/12/18 20:00 12/12/18 19:59 Vancomycin HCl 1 gm/Dextrose 275 ml @ 183.708 mls/hr Q12HR@1000,2200 IVPB 11/12/18 22:00 11/17/18 21:59 11/13/18 22:10 Vitamin B Complex/ Vit C/Folic Acid (Nephrovite) 1 tab DAILY ORAL 11/05/18 09:00 12/05/18 08:59 11/13/18 08:45 Mt Peralta MD Nov 14, 2018 08:19
[2018-11-14] MEDS: BuPROPion XL 150mg tab ORAL SCH (09:43)
[2018-11-14] MEDS: Nephrovite tab (Rena-Vite) ORAL SCH (09:43)
[2018-11-14] MEDS: Vancomycin 1gm/D5W 275ml IVPB SCH ×2 (09:44)
[2018-11-14 12:00] VITALS: BP 115/75
--- NOTE | 2018-11-14 12:55 | Surgery Progress Note ---
Surgery Progress Note Subjective Additional Comments no acute events comfortable tolerating diet no complaints drains in place Objective Last 24 Hour Vital Signs Date Time Temp Pulse Resp B/P (MAP) Pulse Ox O2 Delivery O2 Flow Rate FiO2 11/14/18 09:00 Room Air 11/14/18 08:00 98.3 108 18 125/76 (92) 97 11/14/18 04:00 99.3 110 18 140/93 (109) 97 11/14/18 00:00 99.0 109 20 144/85 (104) 98 11/13/18 21:00 Room Air 11/13/18 20:00 99.0 104 20 114/72 (86) 97 11/13/18 16:00 99.2 106 19 111/70 (84) 98 I&O Intake and Output 11/13/18 11/14/18 18:59 06:59 Intake Total 2160.0 ml 727.5 ml Output Total 1465 ml 1805 ml Balance 695.0 ml -1077.5 ml Intake Oral 950 ml IV Total 1210.0 ml 727.5 ml Output Urine Total 550 ml 800 ml Drainage Total 915 ml 1005 ml Dressing: dry Wound: clean Drains: other Cardiovascular: RSR Respiratory: clear Abdomen: soft, flat, non-tender, present bowel sounds Extremities: no tenderness, no cyanosis Laboratory Tests Test 11/14/18 08:50 Vancomycin Level Trough 8.8 ug/mL (5.0-12.0) Plan Problems: (1) Abdominal pain Assessment & Plan: 68M s/p recovering abd pain labs noted exam as above -BILATERAL NEPHROSTOMY TUBES PLACED LT: LOCKING 8FT PIGTAIL CATHETER RT: NON LOCKING 8FT PIGTAIL CATHETER KUB identified potential malpositioning of the right nephrostomy tube with plans for replacement with advancement by radiology. alvino drain output improved nephro tube working well abd exam benign and much improved 3 x 4 x 5 cm collection containing excreted contrast material posterior to the posterior urethra/Mesa catheter consistent with a urinoma or anastomotic leak. Status post recent prostatectomy. Bilateral percutaneous nephrostomy is in good position. Right double-J ureteral stent in good position. No hydronephrosis or obstruction. -hold on drain removal -Appreciate ID input for Abx -will monitor abd exam -diet as tolerated -iv fluids -dressings -drain care -nephrostomy tube care and reposition done -abx -will follow with exam and recs thank you for allowing me to participate in patients care. (2) Prostate CA Giacomo Berrios Nov 14, 2018 12:55
--- NOTE | 2018-11-14 13:37 | NUR ---
RD ASSESSMENT & RECOMMENDATIONS SEE CARE ACTIVITY FOR COMPLETE ASSESSMENT DAILY ESTIMATED NEEDS: Needs based on Surgery, 64kg 25-30 kcals/kg [id number] total kcals 1-2 g protein/kg 64-128 g total protein 25-30 mL/kg [id number] total fluid mLs NUTRITION DIAGNOSIS: Increased kcal/prot intake needs R/T surgery as evidenced by h/o prostate CA, s/p prostatectomy, open, with resection of rectum and repositioning of bladder/ureter, now on regular diet. CURRENT DIET: REGULAR PO DIET RECOMMENDATIONS: Diet per surgeon -> REGULAR + SNACKS BID ADDITIONAL RECOMMENDATIONS: * Standing wt as able for accurate CBW * ENSURE 1 bottle BID in b/w meals * Monitor PO intake closely once diet initiates -> intake improving (Good po intake) * Monitor K, need for low K diet (K 4.3)
[2018-11-14 16:00] VITALS: BP 136/80
[2018-11-14] MEDS ORDERED: Vancomycin 1gm/D5W 275ml IVPB SCH ×2 (18:00)
--- NOTE | 2018-11-14 19:33 | Infectious Diseases Prog Note ---
Assessment/Plan Assessment/Plan ASSESSMENT AND PLAN: 1. e.coli uti, sepsis, leukocytosis, fevers, CT abdomen and pelvis noted - change abx to ceftriaxone - day # 3 abx - leukocytosis and fevers improved - monitor labs and 2. Sepsis, SIRS criteria - sepsis better, on ceftriaxone Zosyn for now. 3. The patient has history of prostate cancer status post prostatectomy. 4. History of colon cancer, history of chemotherapy. 5. Psychiatric disease, unclear which type. 6. Anemia. 7. Acute kidney injury. 8. Elevated sedimentation rate noted 122. 9. No history of diabetes or hypertension. 10. The patient has history of chemotherapy for colon cancer. 11. No known drug allergies. 12. Social history is negative. 13. Family history is noncontributory. 14. MAR was noted. 15. Case discussed with RN. 16. Case discussed with the patient. 17. Continue treatment per primary consultants. Subjective Constitutional: Denies: fever HEENT: Denies: congestion Respiratory: Denies: shortness of breath Cardiovascular: Denies: chest pain Gastrointestinal/Abdominal: Reports: other - no abdominal pain ; Denies: nausea , vomiting, diarrhea Genitourinary: Reports: other - + duong, no cva pain Neurologic: Denies: headache Psychiatric: Denies: depression Skin: Denies: rash Hematologic: Denies: bleeding Musculoskeletal: Denies: pain Allergies: Coded Allergies: No Known Allergies (Unverified , 10/28/18) Objective Vital Signs Last 24 Hour Vital Signs Date Time Temp Pulse Resp B/P (MAP) Pulse Ox O2 Delivery O2 Flow Rate FiO2 11/14/18 16:00 98.1 109 18 136/80 (98) 100 11/14/18 12:00 98.5 98 18 115/75 (88) 97 11/14/18 09:00 Room Air 11/14/18 08:00 98.3 108 18 125/76 (92) 97 11/14/18 04:00 99.3 110 18 140/93 (109) 97 11/14/18 00:00 99.0 109 20 144/85 (104) 98 11/13/18 21:00 Room Air 11/13/18 20:00 99.0 104 20 114/72 (86) 97 Height (Feet): 5 Height (Inches): 5.00 Weight (Pounds): 143 General Appearance: no acute distress HEENT: normocephalic, atraumatic, anicteric, mucous membranes moist Respiratory/Chest: lungs clear, normal breath sounds, no respiratory distress, no accessory muscle use Cardiovascular: normal rate, regular rhythm, no gallop/murmur, no JVD Abdomen: normal bowel sounds, soft, non tender, no organomegaly, non distended Genitourinary: other - + duong - urine cloudy Extremities: no cyanosis Skin: no rash Neurologic/Psychiatric: surgery assistant II-XII grossly normal, alert, oriented x 3, responsive Lymphatic: no neck adenopathy Musculoskeletal: no effusion Objective CT abdomen and pelvis: IMPRESSION: 3 x 4 x 5 cm collection containing excreted contrast material posterior to the posterior urethra/Duong catheter consistent with a urinoma or anastomotic leak. Status post recent prostatectomy. Bilateral percutaneous nephrostomy is in good position. Right double-J ureteral stent in good position. No hydronephrosis or obstruction. Salient aspects of this report were left on voicemail to Dr. Mickey Obando, Urology at 5:15pm, 11/12/2018 Chest x-ray - Findings: There is slightly increased density of the right suprahilar region but this was seen previously as well. Heart size is normal. There is no infiltrate or significant change appreciated. There is evidence of an old right distal clavicle fracture. Bilateral nephrostomies noted. IMPRESSION: No acute disease or significant change Microbiology Date/Time Source Procedure Growth Status 11/12/18 18:30 Blood Blood Culture - Preliminary NO GROWTH AFTER 24 HOURS Resulted 11/12/18 18:15 Blood Blood Culture - Preliminary NO GROWTH AFTER 24 HOURS Resulted 11/12/18 17:15 Urine,Clean Catch Urine Culture - Preliminary Gram Negative Ismael Resulted 11/11/18 23:00 Indwelling Cath Urine Culture - Final Escherichia Coli Complete Labs Test 11/12/18 04:45 11/12/18 17:15 11/12/18 18:15 11/13/18 05:10 White Blood Count 15.6 K/UL (4.8-10.8) 10.3 K/UL (4.8-10.8) Red Blood Count 3.02 M/UL (4.70-6.10) 2.87 M/UL (4.70-6.10) Hemoglobin 9.2 G/DL (14.2-18.0) 8.8 G/DL (14.2-18.0) Hematocrit 28.4 % (42.0-52.0) 27.0 % (42.0-52.0) Mean Corpuscular Volume 94 FL (80-99) 94 FL (80-99) Mean Corpuscular Hemoglobin 30.6 PG (27.0-31.0) 30.6 PG (27.0-31.0) Mean Corpuscular Hemoglobin Concent 32.5 G/DL (32.0-36.0) 32.6 G/DL (32.0-36.0) Red Cell Distribution Width 12.6 % (11.6-14.8) 12.7 % (11.6-14.8) Platelet Count 385 K/UL (150-450) 353 K/UL (150-450) Mean Platelet Volume 7.5 FL (6.5-10.1) 8.2 FL (6.5-10.1) Neutrophils (%) (Auto) 78.8 % (45.0-75.0) 74.4 % (45.0-75.0) Lymphocytes (%) (Auto) 11.2 % (20.0-45.0) 16.7 % (20.0-45.0) Monocytes (%) (Auto) 7.0 % (1.0-10.0) 5.2 % (1.0-10.0) Eosinophils (%) (Auto) 1.3 % (0.0-3.0) 2.4 % (0.0-3.0) Basophils (%) (Auto) 1.6 % (0.0-2.0) 1.3 % (0.0-2.0) Erythrocyte Sedimentation Rate 122 MM/HR (0-20) Sodium Level 139 MMOL/L (136-145) 141 MMOL/L (136-145) Potassium Level 4.9 MMOL/L (3.5-5.1) 4.3 MMOL/L (3.5-5.1) Chloride Level 105 MMOL/L (98-107) 104 MMOL/L (98-107) Carbon Dioxide Level 29 MMOL/L (21-32) 26 MMOL/L (21-32) Anion Gap 6 mmol/L (5-15) 11 mmol/L (5-15) Blood Urea Nitrogen 21 mg/dL (7-18) 13 mg/dL (7-18) Creatinine 1.1 MG/DL (0.55-1.30) 1.0 MG/DL (0.55-1.30) Estimat Glomerular Filtration Rate > 60 mL/min (>60) > 60 mL/min (>60) Glucose Level 111 MG/DL (74-106) 92 MG/DL (74-106) Calcium Level 9.2 MG/DL (8.5-10.1) 9.2 MG/DL (8.5-10.1) Total Bilirubin 0.4 MG/DL (0.2-1.0) 0.3 MG/DL (0.2-1.0) Aspartate Amino Transf (AST/SGOT) 15 U/L (15-37) 12 U/L (15-37) Alanine Aminotransferase (ALT/SGPT) 25 U/L (12-78) 17 U/L (12-78) Alkaline Phosphatase 74 U/L (46-116) 74 U/L (46-116) C-Reactive Protein, Quantitative 17.9 mg/dL (0.00-0.90) Total Protein 6.9 G/DL (6.4-8.2) 6.8 G/DL (6.4-8.2) Albumin 2.8 G/DL (3.4-5.0) 2.5 G/DL (3.4-5.0) Globulin 4.1 g/dL 4.3 g/dL Albumin/Globulin Ratio 0.7 (1.0-2.7) 0.6 (1.0-2.7) Urine Color Pale yellow Urine Appearance Cloudy Urine pH 6 (4.5-8.0) Urine Specific [place] 1.010 (1.005-1.035) Urine Protein 3+ (NEGATIVE) Urine Glucose (UA) Negative (NEGATIVE) Urine Ketones Negative (NEGATIVE) Urine Blood 5+ (NEGATIVE) Urine Nitrite Negative (NEGATIVE) Urine Bilirubin Negative (NEGATIVE) Urine Urobilinogen Normal MG/DL (0.0-1.0) Urine Leukocyte Esterase 3+ (NEGATIVE) Urine RBC Tntc /HPF (0 - 0) Urine WBC Tntc /HPF (0 - 0) Urine Squamous Epithelial Cells None /LPF (NONE/OCC) Urine Bacteria Many /HPF (NONE) Lactic Acid Level 1.30 mmol/L (0.4-2.0) Test 11/14/18 08:50 Vancomycin Level Trough 8.8 ug/mL (5.0-12.0) Laboratory Tests Test 11/14/18 08:50 Vancomycin Level Trough 8.8 ug/mL (5.0-12.0) Current Medications Medications (Trade) Dose Ordered Sig/Juliano Route PRN Reason Start Time Stop Time Status Last Admin Dose Admin Acetaminophen (Tylenol) 650 mg Q6H PRN ORAL Mild Pain/Temp > 100.5 11/13/18 20:45 12/13/18 20:44 Bupropion HCl (Wellbutrin XL) 300 mg DAILY ORAL 10/29/18 09:00 11/28/18 08:59 11/14/18 09:43 Hydromorphone HCl (Dilaudid) 1 mg Q3H PRN IVP Severe Pain (Pain Scale 7-10) 11/12/18 20:30 11/19/18 20:29 11/14/18 09:44 Mirtazapine (Remeron) 30 mg QHS ORAL 10/28/18 21:00 11/27/18 20:59 11/13/18 20:50 Ondansetron HCl (Zofran) 4 mg Q6H PRN IVP Nausea & Vomiting 10/29/18 15:30 11/28/18 15:29 Pantoprazole (Protonix) 40 mg DAILY ORAL 11/05/18 09:00 12/05/18 08:59 11/14/18 09:43 Piperacillin Sod/ Tazobactam Sod 3.375 gm/Sodium Chloride 110 ml @ 27.5 mls/hr EVERY 8 HOURS IVPB 11/12/18 14:00 11/17/18 13:59 11/14/18 14:30 Sodium Chloride 1,000 ml @ 100 mls/hr Q10H IV 11/11/18 11:00 12/11/18 10:59 11/14/18 12:21 Vancomycin HCl (Vanco rx to dose) 1 ea DAILY PRN MISC Per rx protocol 11/12/18 20:00 12/12/18 19:59 Vancomycin HCl 1 gm/Dextrose 275 ml @ 183.708 mls/hr Q8H IVPB 11/14/18 18:00 11/19/18 17:59 11/14/18 18:41 Vitamin B Complex/ Vit C/Folic Acid (Nephrovite) 1 tab DAILY ORAL 11/05/18 09:00 12/05/18 08:59 11/14/18 09:43 Cayla Augustin MD Nov 14, 2018 19:33
--- NOTE | 2018-11-14 19:34 | NUR ---
HAND-OFF: Report given to HOLLY Salgado. Pt is stable.
[2018-11-14 20:00] VITALS: BP 125/68
--- NOTE | 2018-11-14 20:04 | NUR ---
CASE MANAGEMENT: REVIEW SI: PROSTATE CA OPEN PROSTATECTOMY 10/29 T 99.3 HR 110 RR 20 BP 144/85 SAT 144/85 SAT 97% ROOM AIR IS: CEFTRIAXONE IV Q24HR DILAUDID 1MG Q3HR NS IV F @100ML/HR MED/SURG STATUS DCP: PATIENT IS FROM HOME
[2018-11-14] MEDS: cefTRIAXone 1 GM in D5W 50 ML IVPB SCH (21:42)
--- NOTE | 2018-11-14 22:43 | NUR ---
NURSE NOTE: Pt is A/Ox4. HR is 103 but has decreased from previous set of VS. Orders reviewed and physical assessment is completed. No evidence of pressure injuries. Call drew is within reach. Will continue to monitor.
[2018-11-15 00:38] VITALS: BP 121/65
[2018-11-15] MEDS: HYDROmorphone 1mg/ml Carpuject IVP PRN ×5 (03:50→22:18)
[2018-11-15 03:57] VITALS: BP 135/81
[2018-11-15 06:58] LABS: ALANINE AMINOTRANSFERASE 21 U/L (12-78); ALBUMIN 2.5 G/DL (3.4-5.0); ALBUMIN/GLOBULIN RATIO 0.6 (1.0-2.7); ALKALINE PHOSPHATASE 72 U/L (46-116); ANION GAP 9 mmol/L (5-15); ASPARTATE AMINO TRANSFERASE 13 U/L (15-37); BILIRUBIN,TOTAL 0.2 MG/DL (0.2-1.0); BLOOD UREA NITROGEN 9 mg/dL (7-18); CALCIUM 9.2 MG/DL (8.5-10.1); CARBON DIOXIDE 27 MMOL/L (21-32); CHLORIDE 109 MMOL/L (98-107); POTASSIUM 4.2 MMOL/L (3.5-5.1); SODIUM 145 MMOL/L (136-145)
[2018-11-15 07:13] LABS: BASOPHILS % (AUTO) 1.6 % (0.0-2.0); EOSINOPHILS % (AUTO) 4.5 % (0.0-3.0); HEMATOCRIT 26.4 % (42.0-52.0); HEMOGLOBIN 8.6 G/DL (14.2-18.0); LYMPHOCYTES % (AUTO) 18.1 % (20.0-45.0); MEAN CORPUSCULAR VOLUME 93 FL (80-99); MONOCYTES % (AUTO) 9.9 % (1.0-10.0); NEUTROPHILS % (AUTO) 65.8 % (45.0-75.0); PLATELET COUNT 360 K/UL (150-450); RED BLOOD COUNT 2.84 M/UL (4.70-6.10); RED CELL DISTRIBUTION WIDTH 12.4 % (11.6-14.8); WHITE BLOOD COUNT 8.4 K/UL (4.8-10.8)
[2018-11-15 08:00] VITALS: BP 120/69
--- NOTE | 2018-11-15 08:00 | NUR ---
NURSE NOTES: Received report from Naomi BARRERA, pt in a/a/o x4 laying in bed with no signs of distress or other issues at this time. Bilateral nephrostomy tubes draining to gravity. Mesa cath in place draining well with yellow urine. surgical site open to air. pt able to ambulate with steady gait. call light within reach, bed in lowest position, side rales up x2. I will f/u as needed.
--- NOTE | 2018-11-15 08:55 | Nephrology Progress Note ---
Assessment/Plan Assessment/Plan: A/P 1. S/p prostatectomy, open, with resection of rectum and repositioning of bladder/ureter - 3 x 4 x 5 cm collection containing excreted contrast material posterior to the posterior urethra/Mesa catheter consistent with a urinoma or anastomotic leak. Status post recent prostatectomy. Defer to Gen Surgery and Urology 2. Hyperkalemia- corrected 3. Acute kidney injury secondary to multifactorial ATN- obstruction/contrast- induced nephropathy/NSAIDS Resolved Subjective Date patient seen: Nov 15, 2018 Time patient seen: 08:53 ROS Limited/Unobtainable: No Allergies: Coded Allergies: No Known Allergies (Unverified , 10/28/18) Subjective Patient says eating better. Abd pain improved Objective Last 24 Hour Vital Signs Date Time Temp Pulse Resp B/P (MAP) Pulse Ox O2 Delivery O2 Flow Rate FiO2 11/15/18 08:00 99.6 110 18 120/69 (86) 93 11/15/18 03:57 99.5 103 18 135/81 (99) 93 11/15/18 00:38 99.0 97 18 121/65 (83) 98 11/14/18 21:00 Room Air 11/14/18 20:00 99.5 103 17 125/68 (87) 99 11/14/18 16:00 98.1 109 18 136/80 (98) 100 11/14/18 12:00 98.5 98 18 115/75 (88) 97 11/14/18 09:00 Room Air Intake and Output 11/14/18 11/15/18 19:00 07:00 Intake Total 1810.0 ml 820 ml Output Total 1820 ml 2520 ml Balance -10.0 ml -1700 ml Intake Oral 800 ml 120 ml IV Total 1010.0 ml 700 ml Output Urine Total 900 ml 950 ml Drainage Total 920 ml 1570 ml # Bowel Movements 2 Laboratory Tests 11/15/18 04:40: White Blood Count 8.4, Red Blood Count 2.84L, Hemoglobin 8.6L, Hematocrit 26.4L , Mean Corpuscular Volume 93, Mean Corpuscular Hemoglobin 30.4, Mean Corpuscular Hemoglobin Concent 32.8, Red Cell Distribution Width 12.4, Platelet Count 360, Mean Platelet Volume 7.5, Neutrophils (%) (Auto) 65.8, Lymphocytes (% ) (Auto) 18.1L, Monocytes (%) (Auto) 9.9, Eosinophils (%) (Auto) 4.5H, Basophils (%) (Auto) 1.6, Sodium Level 145, Potassium Level 4.2, Chloride Level 109H, Carbon Dioxide Level 27, Anion Gap 9, Blood Urea Nitrogen 9, Creatinine 1.0, Estimat Glomerular Filtration Rate > 60, Glucose Level 89, Calcium Level 9.2, Total Bilirubin 0.2, Aspartate Amino Transf (AST/SGOT) 13L, Alanine Aminotransferase (ALT/SGPT) 21, Alkaline Phosphatase 72, Total Protein 6.8, Albumin 2.5L, Globulin 4.3, Albumin/Globulin Ratio 0.6L Height (Feet): 5 Height (Inches): 5.00 Weight (Pounds): 143 General Appearance: no apparent distress, lethargic EENT: normal ENT inspection Neck: normal alignment, supple Cardiovascular: normal rate, regular rhythm Respiratory/Chest: lungs clear, normal breath sounds Abdomen: non tender, soft Edema: no edema noted Arm (L), no edema noted Arm (R), no edema noted Leg (L), no edema noted Leg (R), no edema noted Pedal (L), no edema noted Pedal (R), no edema noted Generalized Sarath Briceño MD Nov 15, 2018 08:55
[2018-11-15] MEDS: Nephrovite tab (Rena-Vite) ORAL SCH (09:32)
[2018-11-15] MEDS: BuPROPion XL 150mg tab ORAL SCH (09:32)
[2018-11-15 12:00] VITALS: BP 121/73
--- NOTE | 2018-11-15 13:27 | Surgery Progress Note ---
Surgery Progress Note Subjective Additional Comments No acute events. Doing well. Labs improved. Mesa with output. Drains functional. Objective Last 24 Hour Vital Signs Date Time Temp Pulse Resp B/P (MAP) Pulse Ox O2 Delivery O2 Flow Rate FiO2 11/15/18 12:00 98.5 102 18 121/73 (89) 96 11/15/18 11:07 99.6 11/15/18 09:00 Room Air 11/15/18 08:00 99.6 110 18 120/69 (86) 93 11/15/18 03:57 99.5 103 18 135/81 (99) 93 11/15/18 00:38 99.0 97 18 121/65 (83) 98 11/14/18 21:00 Room Air 11/14/18 20:00 99.5 103 17 125/68 (87) 99 11/14/18 16:00 98.1 109 18 136/80 (98) 100 I&O Intake and Output 11/14/18 11/15/18 18:59 06:59 Intake Total 1810.0 ml 820 ml Output Total 1820 ml 2520 ml Balance -10.0 ml -1700 ml Intake Oral 800 ml 120 ml IV Total 1010.0 ml 700 ml Output Urine Total 900 ml 950 ml Drainage Total 920 ml 1570 ml # Bowel Movements 2 Dressing: dry Wound: clean Drains: other Cardiovascular: RSR Respiratory: clear Abdomen: soft, flat, non-tender, present bowel sounds Extremities: no edema, no tenderness, no cyanosis Laboratory Tests Test 11/15/18 04:40 White Blood Count 8.4 K/UL (4.8-10.8) Red Blood Count 2.84 M/UL (4.70-6.10) L Hemoglobin 8.6 G/DL (14.2-18.0) L Hematocrit 26.4 % (42.0-52.0) L Mean Corpuscular Volume 93 FL (80-99) Mean Corpuscular Hemoglobin 30.4 PG (27.0-31.0) Mean Corpuscular Hemoglobin Concent 32.8 G/DL (32.0-36.0) Red Cell Distribution Width 12.4 % (11.6-14.8) Platelet Count 360 K/UL (150-450) Mean Platelet Volume 7.5 FL (6.5-10.1) Neutrophils (%) (Auto) 65.8 % (45.0-75.0) Lymphocytes (%) (Auto) 18.1 % (20.0-45.0) L Monocytes (%) (Auto) 9.9 % (1.0-10.0) Eosinophils (%) (Auto) 4.5 % (0.0-3.0) H Basophils (%) (Auto) 1.6 % (0.0-2.0) Sodium Level 145 MMOL/L (136-145) Potassium Level 4.2 MMOL/L (3.5-5.1) Chloride Level 109 MMOL/L (98-107) H Carbon Dioxide Level 27 MMOL/L (21-32) Anion Gap 9 mmol/L (5-15) Blood Urea Nitrogen 9 mg/dL (7-18) Creatinine 1.0 MG/DL (0.55-1.30) Estimat Glomerular Filtration Rate > 60 mL/min (>60) Glucose Level 89 MG/DL (74-106) Calcium Level 9.2 MG/DL (8.5-10.1) Total Bilirubin 0.2 MG/DL (0.2-1.0) Aspartate Amino Transf (AST/SGOT) 13 U/L (15-37) L Alanine Aminotransferase (ALT/SGPT) 21 U/L (12-78) Alkaline Phosphatase 72 U/L (46-116) Total Protein 6.8 G/DL (6.4-8.2) Albumin 2.5 G/DL (3.4-5.0) L Globulin 4.3 g/dL Albumin/Globulin Ratio 0.6 (1.0-2.7) L Plan Problems: (1) Abdominal pain Assessment & Plan: 68M s/p recovering abd pain labs noted exam as above -BILATERAL NEPHROSTOMY TUBES PLACED LT: LOCKING 8FT PIGTAIL CATHETER RT: NON LOCKING 8FT PIGTAIL CATHETER KUB identified potential malpositioning of the right nephrostomy tube with plans for replacement with advancement by radiology. alvino drain output improved nephro tube working well abd exam benign and much improved 3 x 4 x 5 cm collection containing excreted contrast material posterior to the posterior urethra/Mesa catheter consistent with a urinoma or anastomotic leak. Status post recent prostatectomy. Bilateral percutaneous nephrostomy is in good position. Right double-J ureteral stent in good position. No hydronephrosis or obstruction. -hold on drain removal -Appreciate ID input for Abx -will monitor abd exam -diet as tolerated -iv fluids -dressings -drain care -nephrostomy tube care and reposition done -abx -will follow with exam and recs thank you for allowing me to participate in patients care. (2) Prostate CA Giacomo Berrios Nov 15, 2018 13:26
[2018-11-15] MEDS ORDERED: Tubing IV Secondary IV ONE (15:38)
[2018-11-15 16:00] VITALS: BP 118/71
--- NOTE | 2018-11-15 19:20 | NUR ---
HAND-OFF: Report given to Brett Fernandez pt in stable condition. I&O's LIDIA#1: 10ml Nephrostomy #1 (right): 75ml #2 (left): 575ml Mesa cath: 600ml
--- NOTE | 2018-11-15 19:55 | NUR ---
NURSE NOTES: Patient in bed awake and oriented. VSS. No SOB noted. Mesa catheter in place and draining well. No signs of distress noted. Call light within reach. Bed is locked and in low position. In stable condition.
[2018-11-15] MEDS: cefTRIAXone 1 GM in D5W 50 ML IVPB SCH (20:33)
[2018-11-15 20:44] VITALS: BP 119/81
[2018-11-16] VITALS: BP 122/82
[2018-11-16] MEDS: HYDROmorphone 1mg/ml Carpuject IVP PRN ×5 (03:29→21:43)
[2018-11-16 04:00] VITALS: BP 124/84
--- NOTE | 2018-11-16 07:48 | Nephrology Progress Note ---
Assessment/Plan Assessment/Plan: A/P 1. S/p prostatectomy, open, with resection of rectum and repositioning of bladder/ureter - urinoma or anastomotic leak. Status post recent prostatectomy. - Per Gen Surgery and Urology 2. Hyperkalemia- corrected 3. Acute kidney injury secondary to multifactorial ATN- obstruction/contrast- induced nephropathy/NSAIDS Resolved Repeat labs ordered for am Subjective Date patient seen: Nov 16, 2018 Time patient seen: 07:46 ROS Limited/Unobtainable: No Allergies: Coded Allergies: No Known Allergies (Unverified , 10/28/18) Subjective Patient ate 100% breakfast. No abdominal pain Objective Last 24 Hour Vital Signs Date Time Temp Pulse Resp B/P (MAP) Pulse Ox O2 Delivery O2 Flow Rate FiO2 11/16/18 04:00 98.5 106 20 124/84 (97) 100 11/16/18 00:00 98.1 101 18 122/82 (95) 99 11/15/18 21:00 Room Air 11/15/18 20:44 98.3 102 18 119/81 (94) 97 11/15/18 16:00 98.5 96 18 118/71 (87) 96 11/15/18 12:00 98.5 102 18 121/73 (89) 96 11/15/18 11:07 99.6 11/15/18 09:00 Room Air 11/15/18 08:00 99.6 110 18 120/69 (86) 93 Intake and Output 11/15/18 11/16/18 19:00 07:00 Intake Total 600 ml 500 ml Output Total 1260 ml 1060 ml Balance -660 ml -560 ml Intake Oral 600 ml 500 ml Output Urine Total 600 ml 500 ml Drainage Total 660 ml 560 ml Height (Feet): 5 Height (Inches): 5.00 Weight (Pounds): 143 General Appearance: no apparent distress, alert EENT: normal ENT inspection Neck: normal alignment, supple Cardiovascular: normal rate, regular rhythm Respiratory/Chest: lungs clear, normal breath sounds Abdomen: non tender, soft Edema: no edema noted Arm (L), no edema noted Arm (R), no edema noted Leg (L), no edema noted Leg (R), no edema noted Pedal (L), no edema noted Pedal (R), no edema noted Generalized Sarath Briceño MD Nov 16, 2018 07:48
--- NOTE | 2018-11-16 07:51 | NUR ---
NURSE NOTES: Received report from Brett Fernandez pt a/a/o x4 laying in bed with no signs of distress or other issues at this time. Mesa cath in place draining to gravity total out put:500ml. bilateral nephrostomy tubes in place draining well during shift commander out put: #1: 50ml, #2:500ml , LIDIA drain#1: 50ml. call light within in reach. bed in lowest position, side rales up x2. I will f/u as needed.
[2018-11-16 08:00] VITALS: BP 128/87
[2018-11-16] MEDS: BuPROPion XL 150mg tab ORAL SCH (08:37)
[2018-11-16] MEDS: Nephrovite tab (Rena-Vite) ORAL SCH (08:37)
[2018-11-16 12:00] VITALS: BP 120/80
[2018-11-16 16:00] VITALS: BP 12/78
--- NOTE | 2018-11-16 16:04 | Surgery Progress Note ---
Surgery Progress Note Subjective Symptoms: improved, tolerating diet, passing flatus, BM Objective Last 24 Hour Vital Signs Date Time Temp Pulse Resp B/P (MAP) Pulse Ox O2 Delivery O2 Flow Rate FiO2 11/16/18 12:36 98.5 11/16/18 12:00 98.8 103 18 120/80 (93) 98 11/16/18 09:00 Room Air 11/16/18 08:00 98.5 104 18 128/87 (101) 97 11/16/18 04:00 98.5 106 20 124/84 (97) 100 11/16/18 00:00 98.1 101 18 122/82 (95) 99 11/15/18 21:00 Room Air 11/15/18 20:44 98.3 102 18 119/81 (94) 97 I&O Intake and Output 11/15/18 11/16/18 19:00 07:00 Intake Total 600 ml 500 ml Output Total 1260 ml 1060 ml Balance -660 ml -560 ml Intake Oral 600 ml 500 ml Output Urine Total 600 ml 500 ml Drainage Total 660 ml 560 ml Dressing: saturated Wound: clean Cardiovascular: RSR Respiratory: clear Abdomen: soft, non-tender, present bowel sounds Extremities: no edema, no tenderness Plan Problems: (1) Abdominal pain Assessment & Plan: 68M s/p recovering abd pain labs noted exam as above -BILATERAL NEPHROSTOMY TUBES PLACED LT: LOCKING 8FT PIGTAIL CATHETER RT: NON LOCKING 8FT PIGTAIL CATHETER KUB identified potential malpositioning of the right nephrostomy tube with plans for replacement with advancement by radiology. alvino drain output improved nephro tube working well abd exam benign and much improved 3 x 4 x 5 cm collection containing excreted contrast material posterior to the posterior urethra/Mesa catheter consistent with a urinoma or anastomotic leak. Status post recent prostatectomy. Bilateral percutaneous nephrostomy is in good position. Right double-J ureteral stent in good position. No hydronephrosis or obstruction. -hold on drain removal -Appreciate ID input for Abx -will monitor abd exam -diet as tolerated -iv fluids -dressings -drain care -nephrostomy tube care and reposition done -abx -will follow with exam and recs thank you for allowing me to participate in patients care. (2) Prostate CA Giacomo Berrios Nov 16, 2018 16:03
--- NOTE | 2018-11-16 16:23 | Infectious Diseases Prog Note ---
Assessment/Plan Assessment/Plan ASSESSMENT AND PLAN: 1. e.coli uti, sepsis, leukocytosis, fevers, CT abdomen and pelvis noted - ceftriaxone - day # 5 abx, plan on 10 abx treatment course, can change to po cipro if needed - leukocytosis and fevers improved - monitor labs and 2. Sepsis, SIRS criteria - sepsis better, on ceftriaxone Zosyn for now. 3. The patient has history of prostate cancer status post prostatectomy. 4. History of colon cancer, history of chemotherapy. 5. Psychiatric disease, unclear which type. 6. Anemia. 7. Acute kidney injury. 8. Elevated sedimentation rate noted 122. 9. No history of diabetes or hypertension. 10. The patient has history of chemotherapy for colon cancer. 11. No known drug allergies. 12. Social history is negative. 13. Family history is noncontributory. 14. MAR was noted. 15. Case discussed with RN. 16. Case discussed with the patient. 17. Continue treatment per primary consultants. Subjective Constitutional: Denies: fever Respiratory: Denies: shortness of breath Cardiovascular: Denies: chest pain Gastrointestinal/Abdominal: Denies: nausea, vomiting, diarrhea Genitourinary: Denies: dysuria Neurologic: Denies: headache Psychiatric: Denies: depression Skin: Denies: rash Hematologic: Denies: bleeding Musculoskeletal: Denies: pain Allergies: Coded Allergies: No Known Allergies (Unverified , 10/28/18) Objective Vital Signs Last 24 Hour Vital Signs Date Time Temp Pulse Resp B/P (MAP) Pulse Ox O2 Delivery O2 Flow Rate FiO2 11/16/18 12:36 98.5 11/16/18 12:00 98.8 103 18 120/80 (93) 98 11/16/18 09:00 Room Air 11/16/18 08:00 98.5 104 18 128/87 (101) 97 11/16/18 04:00 98.5 106 20 124/84 (97) 100 11/16/18 00:00 98.1 101 18 122/82 (95) 99 11/15/18 21:00 Room Air 11/15/18 20:44 98.3 102 18 119/81 (94) 97 Height (Feet): 5 Height (Inches): 5.00 Weight (Pounds): 143 General Appearance: no acute distress HEENT: normocephalic, atraumatic, anicteric, mucous membranes moist Respiratory/Chest: lungs clear, normal breath sounds, no respiratory distress, no accessory muscle use Cardiovascular: normal rate, regular rhythm, no gallop/murmur, no JVD Abdomen: normal bowel sounds, soft, non tender, no organomegaly, non distended Genitourinary: other - no duong Extremities: no cyanosis Skin: no rash 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 Status post recent prostatectomy. Bilateral percutaneous nephrostomy is in good position. Right double-J ureteral stent in good position. No hydronephrosis or obstruction. Salient aspects of this report were left on voicemail to Dr. Mickey Obando, Urology at 5:15pm, 11/12/2018 Chest x-ray - Findings: There is slightly increased density of the right suprahilar region but this was seen previously as well. Heart size is normal. There is no infiltrate or significant change appreciated. There is evidence of an old right distal clavicle fracture. Bilateral nephrostomies noted. IMPRESSION: No acute disease or significant change Microbiology Date/Time Source Procedure Growth Status 11/12/18 18:30 Blood Blood Culture - Preliminary NO GROWTH AFTER 72 HOURS Resulted 10/28/18 15:00 Nasal Nares MRSA Culture - Final NO METHICILLIN RESISTANT STAPH AUREUS... Complete 11/12/18 17:15 Urine,Clean Catch Urine Culture - Final Escherichia Coli Complete Labs Test 11/14/18 08:50 11/15/18 04:40 Vancomycin Level Trough 8.8 ug/mL (5.0-12.0) White Blood Count 8.4 K/UL (4.8-10.8) Red Blood Count 2.84 M/UL (4.70-6.10) Hemoglobin 8.6 G/DL (14.2-18.0) Hematocrit 26.4 % (42.0-52.0) Mean Corpuscular Volume 93 FL (80-99) Mean Corpuscular Hemoglobin 30.4 PG (27.0-31.0) Mean Corpuscular Hemoglobin Concent 32.8 G/DL (32.0-36.0) Red Cell Distribution Width 12.4 % (11.6-14.8) Platelet Count 360 K/UL (150-450) Mean Platelet Volume 7.5 FL (6.5-10.1) Neutrophils (%) (Auto) 65.8 % (45.0-75.0) Lymphocytes (%) (Auto) 18.1 % (20.0-45.0) Monocytes (%) (Auto) 9.9 % (1.0-10.0) Eosinophils (%) (Auto) 4.5 % (0.0-3.0) Basophils (%) (Auto) 1.6 % (0.0-2.0) Sodium Level 145 MMOL/L (136-145) Potassium Level 4.2 MMOL/L (3.5-5.1) Chloride Level 109 MMOL/L (98-107) Carbon Dioxide Level 27 MMOL/L (21-32) Anion Gap 9 mmol/L (5-15) Blood Urea Nitrogen 9 mg/dL (7-18) Creatinine 1.0 MG/DL (0.55-1.30) Estimat Glomerular Filtration Rate > 60 mL/min (>60) Glucose Level 89 MG/DL (74-106) Calcium Level 9.2 MG/DL (8.5-10.1) Total Bilirubin 0.2 MG/DL (0.2-1.0) Aspartate Amino Transf (AST/SGOT) 13 U/L (15-37) Alanine Aminotransferase (ALT/SGPT) 21 U/L (12-78) Alkaline Phosphatase 72 U/L (46-116) Total Protein 6.8 G/DL (6.4-8.2) Albumin 2.5 G/DL (3.4-5.0) Globulin 4.3 g/dL Albumin/Globulin Ratio 0.6 (1.0-2.7) Current Medications Medications (Trade) Dose Ordered Sig/Juliano Route PRN Reason Start Time Stop Time Status Last Admin Dose Admin Acetaminophen (Tylenol) 650 mg Q6H PRN ORAL Mild Pain/Temp > 100.5 11/13/18 20:45 12/13/18 20:44 Bupropion HCl (Wellbutrin XL) 300 mg DAILY ORAL 10/29/18 09:00 11/28/18 08:59 11/16/18 08:37 Ceftriaxone Sodium 1 gm/ Dextrose 50 ml @ 100 mls/hr Q24H IVPB 11/14/18 21:00 11/21/18 20:59 11/15/18 20:33 Hydromorphone HCl (Dilaudid) 1 mg Q3H PRN IVP Severe Pain (Pain Scale 7-10) 11/12/18 20:30 11/19/18 20:29 11/16/18 12:06 Mirtazapine (Remeron) 30 mg QHS ORAL 10/28/18 21:00 11/27/18 20:59 11/15/18 20:33 Ondansetron HCl (Zofran) 4 mg Q6H PRN IVP Nausea & Vomiting 10/29/18 15:30 11/28/18 15:29 Pantoprazole (Protonix) 40 mg DAILY ORAL 11/05/18 09:00 12/05/18 08:59 11/16/18 08:37 Vitamin B Complex/ Vit C/Folic Acid (Nephrovite) 1 tab DAILY ORAL 11/05/18 09:00 12/05/18 08:59 11/16/18 08:37 Cayla Augustin MD Nov 16, 2018 16:23
--- NOTE | 2018-11-16 19:12 | NUR ---
HAND-OFF: Report given to Gumaro BARRERA. pt in stable condition. I&O's LIDIA #1: 10ml Nephrostomy #1: 0ml Nephrostomy #2: 275ml pt is eating at 100%
--- NOTE | 2018-11-16 19:20 | NUR ---
NURSE NOTES: Report taken from HOLLY Holly. Patient is asleep and in bed, arousable to name and light touch. A&Ox4, is very talkative. No signs of distress on room air. Moderate pain through posterior incision sites at tube placement, 07/21. IV site c/d/i and patent, no fluids running per order. Uracil drains intact, continue to monitor. LIDIA drain intact. Mesa draining to gravity, cody urine, sligthly cloudy. Skin intact. Encouraged patient to try to get out of bed x2 during shift with assistance. Bed in lowest position, call light within reach.
[2018-11-16 20:00] VITALS: BP 111/62
[2018-11-16] MEDS: cefTRIAXone 1 GM in D5W 50 ML IVPB SCH (21:00)
[2018-11-17] VITALS: BP 116/64
[2018-11-17] MEDS: HYDROmorphone 1mg/ml Carpuject IVP PRN ×4 (03:07→19:42)
[2018-11-17 04:00] VITALS: BP 119/78
[2018-11-17 06:06] LABS: BASOPHILS % (AUTO) 1.8 % (0.0-2.0); EOSINOPHILS % (AUTO) 5.8 % (0.0-3.0); HEMATOCRIT 30.8 % (42.0-52.0); HEMOGLOBIN 10.1 G/DL (14.2-18.0); LYMPHOCYTES % (AUTO) 16.4 % (20.0-45.0); MEAN CORPUSCULAR VOLUME 92 FL (80-99); MONOCYTES % (AUTO) 10.5 % (1.0-10.0); NEUTROPHILS % (AUTO) 65.5 % (45.0-75.0); PLATELET COUNT 449 K/UL (150-450); RED BLOOD COUNT 3.36 M/UL (4.70-6.10); RED CELL DISTRIBUTION WIDTH 12.8 % (11.6-14.8); WHITE BLOOD COUNT 7.8 K/UL (4.8-10.8)
[2018-11-17 06:14] LABS: ANION GAP 5 mmol/L (5-15); BLOOD UREA NITROGEN 20 mg/dL (7-18); CALCIUM 9.8 MG/DL (8.5-10.1); CARBON DIOXIDE 30 MMOL/L (21-32); CHLORIDE 106 MMOL/L (98-107); CREATININE 1.1 MG/DL (0.55-1.30); POTASSIUM 4.5 MMOL/L (3.5-5.1); SODIUM 141 MMOL/L (136-145)
--- NOTE | 2018-11-17 07:40 | NUR ---
HAND-OFF: Report given to HOLLY Grover. Patient is asleep and VS stable.
[2018-11-17 08:00] VITALS: BP 125/84
--- NOTE | 2018-11-17 08:11 | Nephrology Progress Note ---
Assessment/Plan Assessment/Plan: A/P 1. S/p prostatectomy, open, with resection of rectum and repositioning of bladder/ureter - urinoma or anastomotic leak. Status post recent prostatectomy. - Per Gen Surgery and Urology. Improved 2. Hyperkalemia- corrected 3. Acute kidney injury secondary to multifactorial ATN obstruction/contrast-induced nephropathy/NSAIDS Resolved Will sign off today Subjective Date patient seen: Nov 17, 2018 Time patient seen: 08:10 ROS Limited/Unobtainable: No Allergies: Coded Allergies: No Known Allergies (Unverified , 10/28/18) Subjective Patient improving and in no distress Objective Last 24 Hour Vital Signs Date Time Temp Pulse Resp B/P (MAP) Pulse Ox O2 Delivery O2 Flow Rate FiO2 11/17/18 04:00 98.2 99 19 119/78 (92) 96 11/17/18 00:00 97.9 94 19 116/64 (81) 97 11/16/18 22:13 98.7 11/16/18 21:00 Room Air 11/16/18 20:00 98.7 96 20 111/62 (78) 97 11/16/18 16:00 99.1 103 18 12/78 (56) 94 11/16/18 12:00 98.8 103 18 120/80 (93) 98 11/16/18 09:00 Room Air Intake and Output 11/16/18 11/17/18 19:00 07:00 Intake Total 600 ml 525 ml Output Total 785 ml 660 ml Balance -185 ml -135 ml Intake Oral 600 ml 525 ml Output Urine Total 500 ml 350 ml Drainage Total 285 ml 310 ml Laboratory Tests 11/17/18 05:40: White Blood Count 7.8, Red Blood Count 3.36L, Hemoglobin 10.1L, Hematocrit 30.8L , Mean Corpuscular Volume 92, Mean Corpuscular Hemoglobin 30.1, Mean Corpuscular Hemoglobin Concent 32.9, Red Cell Distribution Width 12.8, Platelet Count 449, Mean Platelet Volume 8.0, Neutrophils (%) (Auto) 65.5, Lymphocytes (% ) (Auto) 16.4L, Monocytes (%) (Auto) 10.5H, Eosinophils (%) (Auto) 5.8H, Basophils (%) (Auto) 1.8, Sodium Level 141, Potassium Level 4.5, Chloride Level 106, Carbon Dioxide Level 30, Anion Gap 5, Blood Urea Nitrogen 20H, Creatinine 1.1, Estimat Glomerular Filtration Rate > 60, Glucose Level 100, Calcium Level 9.8 Height (Feet): 5 Height (Inches): 5.00 Weight (Pounds): 143 General Appearance: no apparent distress, alert EENT: normal ENT inspection Neck: normal alignment, supple Cardiovascular: normal rate, regular rhythm Respiratory/Chest: lungs clear, normal breath sounds Abdomen: non tender, soft Edema: no edema noted Arm (L), no edema noted Arm (R), no edema noted Leg (L), no edema noted Leg (R), no edema noted Pedal (L), no edema noted Pedal (R), no edema noted Generalized Sarath Briceño MD Nov 17, 2018 08:11
--- NOTE | 2018-11-17 08:22 | NUR ---
NURSE NOTES: Pt awake breathing room verbalized pain , pain management , will be implemented into plan of care. Pt breathing room air at this time.
[2018-11-17] MEDS: BuPROPion XL 150mg tab ORAL SCH (08:46)
[2018-11-17] MEDS: Nephrovite tab (Rena-Vite) ORAL SCH (08:46)
--- NOTE | 2018-11-17 09:44 | Pulmonology Progress Note ---
Assessment/Plan Assessment/Plan IMPRESSION: This is a 68-year-old male with underlyin. Psychiatric disorder. 2. History of colon CA. 3. Prostate CA. 4. S/p prostatectomy, open, with resection of rectum and repositioning of bladder/ureter DISCUSSION: Seen by renal S/p bilateral perc nephrostomies Perc nephrostomy replacement R sided Will follow Discussed with urology DC planning per urology and surgery CT reviewed; fluid collection noted Fever and leucocytosis now resolved; on abx per ID May change to PO's Await urology/surgery input re: DC plans Subjective Interval Events: None new Constitutional: Reports: no symptoms HEENT: Repors: no symptoms Respiratory: Reports: no symptoms Cardiovascular: Reports: no symptoms Gastrointestinal/Abdominal: Reports: no symptoms Genitourinary: Reports: no symptoms Allergies: Coded Allergies: No Known Allergies (Unverified , 10/28/18) Objective Last 24 Hour Vital Signs Date Time Temp Pulse Resp B/P (MAP) Pulse Ox O2 Delivery O2 Flow Rate FiO2 11/17/18 04:00 98.2 99 19 119/78 (92) 96 11/17/18 00:00 97.9 94 19 116/64 (81) 97 11/16/18 22:13 98.7 11/16/18 21:00 Room Air 11/16/18 20:00 98.7 96 20 111/62 (78) 97 11/16/18 16:00 99.1 103 18 12/78 (56) 94 11/16/18 12:00 98.8 103 18 120/80 (93) 98 Intake and Output 11/16/18 11/17/18 19:00 07:00 Intake Total 600 ml 525 ml Output Total 785 ml 660 ml Balance -185 ml -135 ml Intake Oral 600 ml 525 ml Output Urine Total 500 ml 350 ml Drainage Total 285 ml 310 ml General Appearance: no acute distress HEENT: normocephalic Respiratory/Chest: chest wall non-tender, lungs clear Cardiovascular: normal peripheral pulses, normal rate Abdomen: normal bowel sounds Laboratory Tests 11/17/18 05:40: White Blood Count 7.8, Red Blood Count 3.36L, Hemoglobin 10.1L, Hematocrit 30.8L , Mean Corpuscular Volume 92, Mean Corpuscular Hemoglobin 30.1, Mean Corpuscular Hemoglobin Concent 32.9, Red Cell Distribution Width 12.8, Platelet Count 449, Mean Platelet Volume 8.0, Neutrophils (%) (Auto) 65.5, Lymphocytes (% ) (Auto) 16.4L, Monocytes (%) (Auto) 10.5H, Eosinophils (%) (Auto) 5.8H, Basophils (%) (Auto) 1.8, Sodium Level 141, Potassium Level 4.5, Chloride Level 106, Carbon Dioxide Level 30, Anion Gap 5, Blood Urea Nitrogen 20H, Creatinine 1.1, Estimat Glomerular Filtration Rate > 60, Glucose Level 100, Calcium Level 9.8 Current Medications Medications (Trade) Dose Ordered Sig/Juliano Route PRN Reason Start Time Stop Time Status Last Admin Dose Admin Acetaminophen (Tylenol) 650 mg Q6H PRN ORAL Mild Pain/Temp > 100.5 11/13/18 20:45 12/13/18 20:44 Bupropion HCl (Wellbutrin XL) 300 mg DAILY ORAL 10/29/18 09:00 11/28/18 08:59 11/17/18 08:46 Ceftriaxone Sodium 1 gm/ Dextrose 50 ml @ 100 mls/hr Q24H IVPB 11/14/18 21:00 11/21/18 20:59 11/16/18 21:00 Hydromorphone HCl (Dilaudid) 1 mg Q3H PRN IVP Severe Pain (Pain Scale 7-10) 11/12/18 20:30 11/19/18 20:29 11/17/18 08:49 Mirtazapine (Remeron) 30 mg QHS ORAL 10/28/18 21:00 11/27/18 20:59 11/16/18 21:41 Ondansetron HCl (Zofran) 4 mg Q6H PRN IVP Nausea & Vomiting 10/29/18 15:30 11/28/18 15:29 Pantoprazole (Protonix) 40 mg DAILY ORAL 11/05/18 09:00 12/05/18 08:59 11/17/18 08:46 Vitamin B Complex/ Vit C/Folic Acid (Nephrovite) 1 tab DAILY ORAL 11/05/18 09:00 12/05/18 08:59 11/17/18 08:46 Mt Peralta MD Nov 17, 2018 09:44
--- NOTE | 2018-11-17 10:51 | Surgery Progress Note ---
Surgery Progress Note Subjective Additional Comments No acute events. Comfortable. Labs improved. Afebrile, hemodynamically stable. No complaints Objective Last 24 Hour Vital Signs Date Time Temp Pulse Resp B/P (MAP) Pulse Ox O2 Delivery O2 Flow Rate FiO2 11/17/18 04:00 98.2 99 19 119/78 (92) 96 11/17/18 00:00 97.9 94 19 116/64 (81) 97 11/16/18 22:13 98.7 11/16/18 21:00 Room Air 11/16/18 20:00 98.7 96 20 111/62 (78) 97 11/16/18 16:00 99.1 103 18 12/78 (56) 94 11/16/18 12:00 98.8 103 18 120/80 (93) 98 I&O Intake and Output 11/16/18 11/17/18 19:00 07:00 Intake Total 600 ml 525 ml Output Total 785 ml 660 ml Balance -185 ml -135 ml Intake Oral 600 ml 525 ml Output Urine Total 500 ml 350 ml Drainage Total 285 ml 310 ml Dressing: dry Wound: clean Drains: other Cardiovascular: RSR Respiratory: clear Abdomen: soft, non-tender, present bowel sounds, non-distended Extremities: no edema, no tenderness, no cyanosis Laboratory Tests Test 11/17/18 05:40 White Blood Count 7.8 K/UL (4.8-10.8) Red Blood Count 3.36 M/UL (4.70-6.10) L Hemoglobin 10.1 G/DL (14.2-18.0) L Hematocrit 30.8 % (42.0-52.0) L Mean Corpuscular Volume 92 FL (80-99) Mean Corpuscular Hemoglobin 30.1 PG (27.0-31.0) Mean Corpuscular Hemoglobin Concent 32.9 G/DL (32.0-36.0) Red Cell Distribution Width 12.8 % (11.6-14.8) Platelet Count 449 K/UL (150-450) Mean Platelet Volume 8.0 FL (6.5-10.1) Neutrophils (%) (Auto) 65.5 % (45.0-75.0) Lymphocytes (%) (Auto) 16.4 % (20.0-45.0) L Monocytes (%) (Auto) 10.5 % (1.0-10.0) H Eosinophils (%) (Auto) 5.8 % (0.0-3.0) H Basophils (%) (Auto) 1.8 % (0.0-2.0) Sodium Level 141 MMOL/L (136-145) Potassium Level 4.5 MMOL/L (3.5-5.1) Chloride Level 106 MMOL/L (98-107) Carbon Dioxide Level 30 MMOL/L (21-32) Anion Gap 5 mmol/L (5-15) Blood Urea Nitrogen 20 mg/dL (7-18) H Creatinine 1.1 MG/DL (0.55-1.30) Estimat Glomerular Filtration Rate > 60 mL/min (>60) Glucose Level 100 MG/DL (74-106) Calcium Level 9.8 MG/DL (8.5-10.1) Plan Problems: (1) Abdominal pain Assessment & Plan: 68M s/p recovering abd pain labs noted exam as above -BILATERAL NEPHROSTOMY TUBES PLACED LT: LOCKING 8FT PIGTAIL CATHETER RT: NON LOCKING 8FT PIGTAIL CATHETER KUB identified potential malpositioning of the right nephrostomy tube with plans for replacement with advancement by radiology. alvino drain output improved nephro tube working well abd exam benign and much improved 3 x 4 x 5 cm collection containing excreted contrast material posterior to the posterior urethra/Mesa catheter consistent with a urinoma or anastomotic leak. Status post recent prostatectomy. Bilateral percutaneous nephrostomy is in good position. Right double-J ureteral stent in good position. No hydronephrosis or obstruction. -hold on drain removal -Appreciate ID input for Abx -will monitor abd exam -diet as tolerated -iv fluids -dressings -drain care -nephrostomy tube care and reposition done -abx -will follow with exam and recs Discharge planning. Patient recommended to go to SNF for recovery until ready for drains to be removed. thank you for allowing me to participate in patients care. (2) Prostate CA Giacomo Berrios Nov 17, 2018 10:51
[2018-11-17 12:00] VITALS: BP 128/80
--- NOTE | 2018-11-17 13:27 | NUR ---
ImagerCompany Manager SI: Prostate Cancer S/P Radical Retropubic Prostatectomy w/ Right Ureteral Reimplant & Bladder Reconstruction BP:128/80 HR:108 RR:20 T:97.6 02 Sat:95% on RA IS: Rocephin IV Nephrovite PO Dilaudid IV M/S Status
[2018-11-17 16:00] VITALS: BP 118/79
--- NOTE | 2018-11-17 18:10 | NUR ---
MATCHER NOTES PT ACCEPTED TO [facility] ROOM [address] BED B. WILL NOTIFY
--- NOTE | 2018-11-17 19:22 | NUR ---
NURSE NOTES: Pt provided with care as needed. Requires encouragement to reposition . Stays in supine position . Pt has poor perception, of time . Breathing room air. Has Discharge orders pending to [facility]. Pt escorted to restroom , to assess with moving his bowels, did not have a BM this shift. Oncoming nurse made aware of pending discharge, output to duong bag, LIDIA drain, #1 and 2 drains urine output 450 LIDIA 10 cc Drain , #1 50cc Drain 2 250cc No noted possible effect noted or reported 2 to antibiotic use.
--- NOTE | 2018-11-17 19:25 | NUR ---
NURSE NOTES: Report taken from HOLLY Grover. patient is asleep, arousable by name and light touch. A&Ox4, does tend to ramble. No signs of distress on room air. Complaining of pain primarily at duong insertion site, radiating to nephro tube sites, 08/20. Bilateral uracil bags intact and draining yellow urine. Duong to gravity, clear cody urine draining. LIDIA drain patent. Skin intact, continue to encourage patient to get out of bed. Placement for patient approved per CM, will notify MD. Bed in lowest position, call light within reach.
--- NOTE | 2018-11-17 19:44 | NUR ---
HAND-OFF: Report given to Albert BARRERA.
[2018-11-17 20:00] VITALS: BP 123/86
[2018-11-17] MEDS: cefTRIAXone 1 GM in D5W 50 ML IVPB SCH (20:48)
[2018-11-18] VITALS: BP 119/86
[2018-11-18] MEDS: HYDROmorphone 1mg/ml Carpuject IVP PRN ×4 (00:03→13:07)
[2018-11-18 04:00] VITALS: BP 121/89
[2018-11-18 06:26] LABS: BASOPHILS % (AUTO) 1.7 % (0.0-2.0); EOSINOPHILS % (AUTO) 4.9 % (0.0-3.0); HEMATOCRIT 32.9 % (42.0-52.0); HEMOGLOBIN 10.7 G/DL (14.2-18.0); MEAN CORPUSCULAR VOLUME 93 FL (80-99); MONOCYTES % (AUTO) 8.4 % (1.0-10.0); PLATELET COUNT 448 K/UL (150-450); RED BLOOD COUNT 3.54 M/UL (4.70-6.10); RED CELL DISTRIBUTION WIDTH 12.9 % (11.6-14.8); WHITE BLOOD COUNT 9.7 K/UL (4.8-10.8)
[2018-11-18 06:47] LABS: ALANINE AMINOTRANSFERASE 26 U/L (12-78); ALBUMIN/GLOBULIN RATIO 0.6 (1.0-2.7); ALKALINE PHOSPHATASE 92 U/L (46-116); ANION GAP 7 mmol/L (5-15); ASPARTATE AMINO TRANSFERASE 16 U/L (15-37); BILIRUBIN,TOTAL 0.2 MG/DL (0.2-1.0); BLOOD UREA NITROGEN 25 mg/dL (7-18); CALCIUM 10.3 MG/DL (8.5-10.1); CARBON DIOXIDE 30 MMOL/L (21-32); CHLORIDE 106 MMOL/L (98-107); CREATININE 1.2 MG/DL (0.55-1.30); POTASSIUM 5.2 MMOL/L (3.5-5.1); SODIUM 143 MMOL/L (136-145)
--- NOTE | 2018-11-18 07:20 | NUR ---
HAND-OFF: Report given to HOLLY Grover. patient is asleep in bed, VS stable.
--- NOTE | 2018-11-18 07:22 | NUR ---
NURSE NOTES: Patients drainage output as follows: Mesa: 350cc LIDIA: 5cc #1 Uracil (R): 25 #2 Uracil (L): 350
--- NOTE | 2018-11-18 07:53 | NUR ---
NURSE NOTES: Pt currently eating breakfast. Per outgoing nurse no acute changes to report. Pt has possible discharge to [facility] after clearance. Plan of care will be followed to include monitoring output from drains, Mesa catheter . Pt is able to verbalize some known needs but does not have clear perception of time, poor short term memory
[2018-11-18 08:00] VITALS: BP 128/70
[2018-11-18] MEDS: Nephrovite tab (Rena-Vite) ORAL SCH (09:22)
[2018-11-18] MEDS: BuPROPion XL 150mg tab ORAL SCH (09:22)
--- NOTE | 2018-11-18 09:45 | Pulmonology Progress Note ---
Assessment/Plan Assessment/Plan IMPRESSION: This is a 68-year-old male with underlyin. Psychiatric disorder. 2. History of colon CA. 3. Prostate CA. 4. S/p prostatectomy, open, with resection of rectum and repositioning of bladder/ureter DISCUSSION: Seen by renal S/p bilateral perc nephrostomies Perc nephrostomy replacement R sided Will follow Discussed with urology DC planning per urology and surgery CT reviewed; fluid collection noted Fever and leucocytosis now resolved; on abx per ID May change to PO's Await urology/surgery input re: DC plans Discussed with nursing OK to dc to SNF Subjective Interval Events: None new reported Constitutional: Reports: no symptoms HEENT: Repors: no symptoms Respiratory: Reports: no symptoms Cardiovascular: Reports: no symptoms Gastrointestinal/Abdominal: Reports: no symptoms Genitourinary: Reports: no symptoms Neurologic: Reports: no symptoms Allergies: Coded Allergies: No Known Allergies (Unverified , 10/28/18) Objective Last 24 Hour Vital Signs Date Time Temp Pulse Resp B/P (MAP) Pulse Ox O2 Delivery O2 Flow Rate FiO2 11/18/18 04:00 98.7 99 18 121/89 (100) 95 11/18/18 00:00 98.0 98 18 119/86 (97) 95 11/17/18 21:00 Room Air 11/17/18 20:12 98.4 11/17/18 20:00 97.7 102 18 123/86 (98) 96 11/17/18 16:00 98.4 109 20 118/79 (92) 11/17/18 12:00 97.6 108 128/80 (96) 95 Intake and Output 11/17/18 11/18/18 19:00 07:00 Intake Total 4253 ml Output Total 1465 ml Balance 2788 ml Intake Oral 4253 ml Output Urine Total 775 ml Drainage Total 690 ml General Appearance: no acute distress HEENT: normocephalic Respiratory/Chest: chest wall non-tender, lungs clear Cardiovascular: normal peripheral pulses, normal rate Abdomen: normal bowel sounds Laboratory Tests 11/18/18 05:20: White Blood Count 9.7, Red Blood Count 3.54L, Hemoglobin 10.7L, Hematocrit 32.9L , Mean Corpuscular Volume 93, Mean Corpuscular Hemoglobin 30.2, Mean Corpuscular Hemoglobin Concent 32.5, Red Cell Distribution Width 12.9, Platelet Count 448, Mean Platelet Volume 8.3, Neutrophils (%) (Auto) 68.0, Lymphocytes (% ) (Auto) 17.0L, Monocytes (%) (Auto) 8.4, Eosinophils (%) (Auto) 4.9H, Basophils (%) (Auto) 1.7, Erythrocyte Sedimentation Rate 56H, Sodium Level 143, Potassium Level 5.2H, Chloride Level 106, Carbon Dioxide Level 30, Anion Gap 7, Blood Urea Nitrogen 25H, Creatinine 1.2, Estimat Glomerular Filtration Rate > 60 , Glucose Level 103, Calcium Level 10.3H, Total Bilirubin 0.2, Aspartate Amino Transf (AST/SGOT) 16, Alanine Aminotransferase (ALT/SGPT) 26, Alkaline Phosphatase 92, C-Reactive Protein, Quantitative 6.5H, Total Protein 8.0, Albumin 3.0L, Globulin 5.0, Albumin/Globulin Ratio 0.6L Current Medications Medications (Trade) Dose Ordered Sig/Juliano Route PRN Reason Start Time Stop Time Status Last Admin Dose Admin Acetaminophen (Tylenol) 650 mg Q6H PRN ORAL Mild Pain/Temp > 100.5 11/13/18 20:45 12/13/18 20:44 Bupropion HCl (Wellbutrin XL) 300 mg DAILY ORAL 10/29/18 09:00 11/28/18 08:59 11/18/18 09:22 Ceftriaxone Sodium 1 gm/ Dextrose 50 ml @ 100 mls/hr Q24H IVPB 11/14/18 21:00 11/21/18 20:59 11/17/18 20:48 Hydromorphone HCl (Dilaudid) 1 mg Q3H PRN IVP Severe Pain (Pain Scale 7-10) 11/12/18 20:30 11/19/18 20:29 11/18/18 09:23 Mirtazapine (Remeron) 30 mg QHS ORAL 10/28/18 21:00 11/27/18 20:59 11/17/18 20:48 Ondansetron HCl (Zofran) 4 mg Q6H PRN IVP Nausea & Vomiting 10/29/18 15:30 11/28/18 15:29 Pantoprazole (Protonix) 40 mg DAILY ORAL 11/05/18 09:00 12/05/18 08:59 11/18/18 09:22 Vitamin B Complex/ Vit C/Folic Acid (Nephrovite) 1 tab DAILY ORAL 11/05/18 09:00 12/05/18 08:59 11/18/18 09:22 Mt Peralta MD Nov 18, 2018 09:44
[2018-11-18] MEDS ORDERED: CIPRO500 MG/51 PO (09:47)
[2018-11-18 12:00] VITALS: BP 122/71
--- NOTE | 2018-11-18 13:04 | NUR ---
DISCHARGE PLANNING DISCHARGE ORDER NOTED Patient has been accepted to; [facility] [address] [place] [address] Bed: 236-B Skilled [phone] for Nurse to Nurse report [facility] ETA for transportation: 15:00
--- NOTE | 2018-11-18 13:30 | NUR ---
Social Service Note SW left a message for patient's [employer]SP rn case manager hospice Weston Augustin [phone] informing her of patient's discharge to [facility]. No return call at this time.
--- NOTE | 2018-11-18 14:48 | Infectious Diseases Prog Note ---
Assessment/Plan Assessment/Plan ASSESSMENT AND PLAN: 1. e.coli uti, sepsis, leukocytosis, fevers, CT abdomen and pelvis noted - ceftriaxone - day # 7 abx, plan on 10 abx treatment course, can change to po cipro if needed - leukocytosis and fevers improved - monitor labs and 2. Sepsis, SIRS criteria - sepsis better, on ceftriaxone Zosyn for now. 3. The patient has history of prostate cancer status post prostatectomy. 4. History of colon cancer, history of chemotherapy. 5. Psychiatric disease, unclear which type. 6. Anemia. 7. Acute kidney injury. 8. Elevated sedimentation rate noted 122. 9. No history of diabetes or hypertension. 10. The patient has history of chemotherapy for colon cancer. 11. No known drug allergies. 12. Social history is negative. 13. Family history is noncontributory. 14. MAR was noted. 15. Case discussed with RN. 16. Case discussed with the patient. 17. Continue treatment per primary consultants. Subjective Constitutional: Denies: fever, fatigue, drenching sweats Respiratory: Denies: shortness of breath Cardiovascular: Denies: chest pain Gastrointestinal/Abdominal: Reports: other - + duong ; Denies: nausea, vomiting , diarrhea Genitourinary: Reports: other - + Neurologic: Denies: headache Psychiatric: Denies: depression Skin: Denies: rash Hematologic: Denies: bleeding Musculoskeletal: Denies: pain Allergies: Coded Allergies: No Known Allergies (Unverified , 10/28/18) Objective Vital Signs Last 24 Hour Vital Signs Date Time Temp Pulse Resp B/P (MAP) Pulse Ox O2 Delivery O2 Flow Rate FiO2 11/18/18 12:00 97.8 98 18 122/71 (88) 98 11/18/18 09:00 Room Air 11/18/18 08:00 98.1 107 18 128/70 (89) 98 11/18/18 04:00 98.7 99 18 121/89 (100) 95 11/18/18 00:00 98.0 98 18 119/86 (97) 95 11/17/18 21:00 Room Air 11/17/18 20:12 98.4 11/17/18 20:00 97.7 102 18 123/86 (98) 96 11/17/18 16:00 98.4 109 20 118/79 (92) Height (Feet): 5 Height (Inches): 5.00 Weight (Pounds): 143 General Appearance: no acute distress HEENT: normocephalic, atraumatic, anicteric, mucous membranes moist Respiratory/Chest: lungs clear, normal breath sounds, no respiratory distress, no accessory muscle use Cardiovascular: normal rate, regular rhythm, no gallop/murmur, no JVD Abdomen: normal bowel sounds, soft, non tender, no organomegaly Genitourinary: other - + duong - urine clear Extremities: no cyanosis Skin: no rash Neurologic/Psychiatric: resort keeper II-XII grossly normal, alert, oriented x 3, responsive Lymphatic: no neck adenopathy Musculoskeletal: no effusion Objective CT abdomen and pelvis: IMPRESSION: 3 x 4 x 5 cm collection containing excreted contrast material posterior to the posterior urethra/Duong catheter consistent with a urinoma or anastomotic leak. Status post recent prostatectomy. Bilateral percutaneous nephrostomy is in good position. Right double-J ureteral stent in good position. No hydronephrosis or obstruction. Salient aspects of this report were left on voicemail to Dr. Mickey Obando, Urology at 5:15pm, 11/12/2018 Chest x-ray - Findings: There is slightly increased density of the right suprahilar region but this was seen previously as well. Heart size is normal. There is no infiltrate or significant change appreciated. There is evidence of an old right distal clavicle fracture. Bilateral nephrostomies noted. IMPRESSION: No acute disease or significant change Microbiology Date/Time Source Procedure Growth Status 11/12/18 18:30 Blood Blood Culture - Final NO GROWTH AFTER 5 DAYS Complete 10/28/18 15:00 Nasal Nares MRSA Culture - Final NO METHICILLIN RESISTANT STAPH AUREUS... Complete 11/12/18 17:15 Urine,Clean Catch Urine Culture - Final Escherichia Coli Complete Laboratory Tests Test 11/18/18 05:20 White Blood Count 9.7 K/UL (4.8-10.8) Red Blood Count 3.54 M/UL (4.70-6.10) L Hemoglobin 10.7 G/DL (14.2-18.0) L Hematocrit 32.9 % (42.0-52.0) L Mean Corpuscular Volume 93 FL (80-99) Mean Corpuscular Hemoglobin 30.2 PG (27.0-31.0) Mean Corpuscular Hemoglobin Concent 32.5 G/DL (32.0-36.0) Red Cell Distribution Width 12.9 % (11.6-14.8) Platelet Count 448 K/UL (150-450) Mean Platelet Volume 8.3 FL (6.5-10.1) Neutrophils (%) (Auto) 68.0 % (45.0-75.0) Lymphocytes (%) (Auto) 17.0 % (20.0-45.0) L Monocytes (%) (Auto) 8.4 % (1.0-10.0) Eosinophils (%) (Auto) 4.9 % (0.0-3.0) H Basophils (%) (Auto) 1.7 % (0.0-2.0) Erythrocyte Sedimentation Rate 56 MM/HR (0-20) H Sodium Level 143 MMOL/L (136-145) Potassium Level 5.2 MMOL/L (3.5-5.1) H Chloride Level 106 MMOL/L (98-107) Carbon Dioxide Level 30 MMOL/L (21-32) Anion Gap 7 mmol/L (5-15) Blood Urea Nitrogen 25 mg/dL (7-18) H Creatinine 1.2 MG/DL (0.55-1.30) Estimat Glomerular Filtration Rate > 60 mL/min (>60) Glucose Level 103 MG/DL (74-106) Calcium Level 10.3 MG/DL (8.5-10.1) H Total Bilirubin 0.2 MG/DL (0.2-1.0) Aspartate Amino Transf (AST/SGOT) 16 U/L (15-37) Alanine Aminotransferase (ALT/SGPT) 26 U/L (12-78) Alkaline Phosphatase 92 U/L (46-116) C-Reactive Protein, Quantitative 6.5 mg/dL (0.00-0.90) H Total Protein 8.0 G/DL (6.4-8.2) Albumin 3.0 G/DL (3.4-5.0) L Globulin 5.0 g/dL Albumin/Globulin Ratio 0.6 (1.0-2.7) L Current Medications Medications (Trade) Dose Ordered Sig/Juliano Route PRN Reason Start Time Stop Time Status Last Admin Dose Admin Acetaminophen (Tylenol) 650 mg Q6H PRN ORAL Mild Pain/Temp > 100.5 11/13/18 20:45 12/13/18 20:44 Bupropion HCl (Wellbutrin XL) 300 mg DAILY ORAL 10/29/18 09:00 11/28/18 08:59 11/18/18 09:22 Ceftriaxone Sodium 1 gm/ Dextrose 50 ml @ 100 mls/hr Q24H IVPB 11/14/18 21:00 11/21/18 20:59 11/17/18 20:48 Hydromorphone HCl (Dilaudid) 1 mg Q3H PRN IVP Severe Pain (Pain Scale 7-10) 11/12/18 20:30 11/19/18 20:29 11/18/18 13:07 Mirtazapine (Remeron) 30 mg QHS ORAL 10/28/18 21:00 11/27/18 20:59 11/17/18 20:48 Ondansetron HCl (Zofran) 4 mg Q6H PRN IVP Nausea & Vomiting 10/29/18 15:30 11/28/18 15:29 Pantoprazole (Protonix) 40 mg DAILY ORAL 11/05/18 09:00 12/05/18 08:59 11/18/18 09:22 Vitamin B Complex/ Vit C/Folic Acid (Nephrovite) 1 tab DAILY ORAL 11/05/18 09:00 12/05/18 08:59 11/18/18 09:22 Cayla Augustin MD Nov 18, 2018 14:48
--- NOTE | 2018-11-18 15:42 | Surgery Progress Note ---
Surgery Progress Note Subjective Additional Comments labs improving exam improved overall much better plan to d/c SNF soon cont duong and drains Objective Last 24 Hour Vital Signs Date Time Temp Pulse Resp B/P (MAP) Pulse Ox O2 Delivery O2 Flow Rate FiO2 11/18/18 12:00 97.8 98 18 122/71 (88) 98 11/18/18 09:00 Room Air 11/18/18 08:00 98.1 107 18 128/70 (89) 98 11/18/18 04:00 98.7 99 18 121/89 (100) 95 11/18/18 00:00 98.0 98 18 119/86 (97) 95 11/17/18 21:00 Room Air 11/17/18 20:12 98.4 11/17/18 20:00 97.7 102 18 123/86 (98) 96 11/17/18 16:00 98.4 109 20 118/79 (92) I&O Intake and Output 11/17/18 11/18/18 18:59 06:59 Intake Total 4253 ml Output Total 1465 ml Balance 2788 ml Intake Oral 4253 ml Output Urine Total 775 ml Drainage Total 690 ml Laboratory Tests Test 11/18/18 05:20 White Blood Count 9.7 K/UL (4.8-10.8) Red Blood Count 3.54 M/UL (4.70-6.10) L Hemoglobin 10.7 G/DL (14.2-18.0) L Hematocrit 32.9 % (42.0-52.0) L Mean Corpuscular Volume 93 FL (80-99) Mean Corpuscular Hemoglobin 30.2 PG (27.0-31.0) Mean Corpuscular Hemoglobin Concent 32.5 G/DL (32.0-36.0) Red Cell Distribution Width 12.9 % (11.6-14.8) Platelet Count 448 K/UL (150-450) Mean Platelet Volume 8.3 FL (6.5-10.1) Neutrophils (%) (Auto) 68.0 % (45.0-75.0) Lymphocytes (%) (Auto) 17.0 % (20.0-45.0) L Monocytes (%) (Auto) 8.4 % (1.0-10.0) Eosinophils (%) (Auto) 4.9 % (0.0-3.0) H Basophils (%) (Auto) 1.7 % (0.0-2.0) Erythrocyte Sedimentation Rate 56 MM/HR (0-20) H Sodium Level 143 MMOL/L (136-145) Potassium Level 5.2 MMOL/L (3.5-5.1) H Chloride Level 106 MMOL/L (98-107) Carbon Dioxide Level 30 MMOL/L (21-32) Anion Gap 7 mmol/L (5-15) Blood Urea Nitrogen 25 mg/dL (7-18) H Creatinine 1.2 MG/DL (0.55-1.30) Estimat Glomerular Filtration Rate > 60 mL/min (>60) Glucose Level 103 MG/DL (74-106) Calcium Level 10.3 MG/DL (8.5-10.1) H Total Bilirubin 0.2 MG/DL (0.2-1.0) Aspartate Amino Transf (AST/SGOT) 16 U/L (15-37) Alanine Aminotransferase (ALT/SGPT) 26 U/L (12-78) Alkaline Phosphatase 92 U/L (46-116) C-Reactive Protein, Quantitative 6.5 mg/dL (0.00-0.90) H Total Protein 8.0 G/DL (6.4-8.2) Albumin 3.0 G/DL (3.4-5.0) L Globulin 5.0 g/dL Albumin/Globulin Ratio 0.6 (1.0-2.7) L Plan Problems: (1) Abdominal pain Assessment & Plan: 68M s/p recovering abd pain labs noted exam as above -BILATERAL NEPHROSTOMY TUBES PLACED LT: LOCKING 8FT PIGTAIL CATHETER RT: NON LOCKING 8FT PIGTAIL CATHETER KUB identified potential malpositioning of the right nephrostomy tube with plans for replacement with advancement by radiology. alvino drain output improved nephro tube working well abd exam benign and much improved 3 x 4 x 5 cm collection containing excreted contrast material posterior to the posterior urethra/Duong catheter consistent with a urinoma or anastomotic leak. Status post recent prostatectomy. Bilateral percutaneous nephrostomy is in good position. Right double-J ureteral stent in good position. No hydronephrosis or obstruction. -hold on drain removal -Appreciate ID input for Abx -will monitor abd exam -diet as tolerated -iv fluids -dressings -drain care -nephrostomy tube care and reposition done -abx -will follow with exam and recs Discharge planning. Patient recommended to go to SNF for recovery until ready for drains to be removed. thank you for allowing me to participate in patients care. (2) Prostate CA Giacomo Berrios Nov 18, 2018 15:42
--- NOTE | 2018-11-18 15:46 | NUR ---
NURSE NOTES: Pt discharged to [facility], with belongings, per order of Dr Peralta all drains tubes , and lines are kept in place. Discharge packet provided. Pt refused to bandages to nephrostomy tubes changed, and or reinforced. Bandages are lifting up around the edges. " I not having you do that , I want all of these out" Pt educated on importance and purpose of drains , Mesa catheter. Pt was attempting to remove anchor from his leg. R/B explained. Pt refused to sign inventory list, and discharge papers " I have nothing to say to you pt yelled" Pt informed that his mental watch caser made arrangements , due to safety and to ensure care of tubes . Charge Nurse made aware, redirected pt. Pt agreed to discharge to [facility] at that time. Pt in stable condition. Report given to Carmina. Voicemail left to Yaya Araiza his brother
--- NOTE | 2018-11-20 12:12 | Discharge Summary ---
Discharge Summary Discharge Summary _ DATE OF ADMISSION: 10/28/2018 DATE OF DISCHARGE: 11/18/2018 DISCHARGED BY: Dr. Peralta REASON FOR ADMISSION: 68 years old male with history of prior colon cancer , s/p chemotherapy, found to have advanced prostate cancer and admitted for surgery. CONSULTANTS: ID specialist bulldogger Dr.De Rivera surgery Dr. Berrios general surgeon Dr. Pace urologist [facility] COURSE: Patient undergone on radical retropubic prostatectomy with right ureteral reimplant and double-J stent placement into the right kidney. LIDIA drain and Mesa catheter were placed. During the dissection the prostate was found to be very densely adherent to the rectal wall. In order to achieve clean margin, the tumor was carefully dissected of the rectal wall by urologist and during dissection it was found that tumor penetrated the rectal wall and involved part of the muscular layer of the rectum. General surgeon /Dr Pace was called to perform the repair of the rectum to avoid infectious complications. Pain management was addressed . Intake and output was closely monitored. Routine postoperative care provided . The next day patient developed acute renal failure with creatinine jumping from prior 1.2 up to 2.4. Patient subsequently undergone successful placement of bilateral nephrostomy tubes, no complication. Patient tolerated procedure well. Offshore Wind Operations Manager closely followed. Renal parameters and electrolytes were closely monitored. Electrolytes corrected as needed, and nephrotoxic's were avoided. The next day after nephrostomy tube placement, creatinine down to 1.2. Per bulldogger , acute kidney injury was secondary to multifactorial acute tubular necrosis precipitated by obstruction, contrast induced nephropathy, and NSAIDS. Electrolytes corrected as needed : hyperkalemia treated. Nephrotoxins were avoided. Renal ultrasound revealed mild left hydronephrosis, no hydronephrosis on the right. Patient noted to have nonfunctioning right percutaneous nephrostomy. Patient subsequently undergone exchange of obstructed right percutaneous nephrostomy catheter for a new 8.5 Nepali catheter.by interventional radiology on 11/04. Catheter was draining well after exchange. IV antibiotics provided as per ID specialist recommendation. Urine culture revealed E. coli . Blood culture were negative. Patient was treated with antibiotic as per ID specialist recommendation. Leukocytosis and fevers resolved. Patient developed leukocytosis on 11/11. Subsequently CT scan of the abdomen and pelvis was done to rule out abscess . It revealed 3 x 4 x 5 cm collection containing excreted contrast material posterior to the posterior urethra/Mesa catheter consistent with a urinoma or anastomotic leak. Status post recent prostatectomy. Bilateral percutaneous nephrostomy in good position. Right double-J ureteral stent in good position. No hydronephrosis or obstruction. ID specialist recommended transition patietn to oral antibiotic to complete the course at the facility. Pain management was addressed. Supportive care provided. General surgeon closely followed. LIDIA drain output closely monitored, and improved. Nephrostomy tube were working well. Abdominal exam remained benign and much improved. CT scan results with fluid collection were consistent with likely anastomotic leak or urinoma. Surgeon recommended SNF placement until ready for LIDIA drain to be discontinued. Leukocytosis and fevers resolved. Patient clinically stabilized. Patient will need to complete ciprofloxacin upon discharge for to complete the course as per ID specialist recommendation. Hemoglobin and hematocrit were closely monitored with goal to keep hemoglobin above 7. Patient undergone transfusion of 2 units of packed red blood cells while in the hospital. Prior to discharge hemoglobin 10.7, hematocrit 32.9. Pain management was addressed. Bowel regimen instituted. Supportive care provided. Placement was found and secured at the residential facility. Patient was stable for discharge FINAL DIAGNOSES: Prostate cancer Status post radical retropubic prostatectomy with a right ureteral reimplant and double-J stent placement into the right 10/29 Status post repair of the rectal injury 10/29 Status post bilateral nephrostomy tube placement 10/30 Acute kidney injury secondary to multifactorial acute tubular necrosis: obstruction, contrast induced nephropathy, NSAIDS - resolved Nonfunctioning right percutaneous nephrostomy Status post exchange of obstructed right percutaneous nephrostomy for a new catheter on 11/04 Sepsis/leukocytosis, fevers, evidence of infection E. coli UTI History of colon cancer, status post chemotherapy Psychiatric disorder Anemia Hyperkalemia DISCHARGE MEDICATIONS: See Medication Reconciliation list. DISCHARGE INSTRUCTIONS: Patient was discharged to the residential facility. Follow up with medical doctor at the facility. I have been assigned to dictate discharge summary for this account. I was not involved in the patient's management. Ashley Herring NP Nov 20, 2018 12:12
== END 2018-11-18 15:59 | DRG 707 ==
LOC: 3E 13:52
PROC: 0DQP0ZZ Repair Rectum, Open Approach (ICD-10-PCS; principal; 2018-10-29 07:30)
PROC: 0T760DZ Dilation of Right Ureter with Intraluminal Device, Open Approach (ICD-10-PCS; principal; 2018-10-29 07:30)
PROC: 0VT00ZZ Resection of Prostate, Open Approach (ICD-10-PCS; principal; 2018-10-29 07:30)
PROC: 0TS60ZZ Reposition Right Ureter, Open Approach (ICD-10-PCS; principal; 2018-10-29 07:30)
PROC: 0T9130Z Drainage of Left Kidney with Drainage Device, Percutaneous Approach (ICD-10-PCS; 2018-10-31)
PROC: 0T9030Z Drainage of Right Kidney with Drainage Device, Percutaneous Approach (ICD-10-PCS; 2018-10-31)
PROC: 30233N1 Transfusion of Nonautologous Red Blood Cells into Peripheral Vein, Percutaneous Approach (ICD-10-PCS; 2018-11-02)
PROC: 0T25X0Z Change Drainage Device in Kidney, External Approach (ICD-10-PCS; 2018-11-04)
DX: C61 Malignant neoplasm of prostate (principal); N17.0 Acute kidney failure with tubular necrosis; A41.9 Sepsis, unspecified organism; D62 Acute posthemorrhagic anemia; N39.0 Urinary tract infection, site not specified; N13.5 Crossing vessel and stricture of ureter without hydronephrosis; Z85.038 Personal history of other malignant neoplasm of large intestine; R10.9 Unspecified abdominal pain; N99.522 Malfunction of incontinent external stoma of urinary tract; Y83.3 Surgical operation with formation of external stoma as the cause of abnormal reaction of the patient, or of later complication, without mention of misadventure at the time of the procedure; B96.20 Unspecified Escherichia coli [E. coli] as the cause of diseases classified elsewhere; F99 Mental disorder, not otherwise specified; E87.5 Hyperkalemia; N14.1 Nephropathy induced by other drugs, medicaments and biological substances; T50.8X5A Adverse effect of diagnostic agents, initial encounter
CPT/HCPCS: 36415; 50432; 71045; 74018; 74177; 76770; 80048; 80053; 80202; 81003; 83605; 84132; 85007; 85025; 85610; 85651; 85730; 86140; 86850; 86900; 86901; 86920; 87040; 87081; 87086; 87181; 94003; 94150; J2250; J2405; J2710; J8499